=== PATIENT | female | born 1960 | race Caucasian/White ===

== ENCOUNTER 2016-12-02 08:47 | Emergency (ER) | payer BC, MEDICARE, MEDICAID ==
[2016-12-02] MEDS ORDERED: HYDROmorphone 1 MG/ML Syringe IVPUSH ONE ×2 (09:15→11:57)
[2016-12-02] MEDS ORDERED: Metoclopramide 10 MG/2 ML SDV IVPUSH ONE (09:15)
[2016-12-02] MEDS ORDERED: Sodium Chloride 0.9% 1,000 ML IV SCH (09:15)
--- NOTE | 2016-12-02 09:20 | EDM.PDOC ---
ED HPI GENERAL MEDICAL PROBLEM - General Chief Complaint: Flank Pain Stated Complaint: L SIDE ABDOMINAL PAIN Time Seen by Provider: 12/02/16 09:15 Source of Information: Reports: Patient History Limitations: Reports: No Limitations - History of Present Illness INITIAL COMMENTS - FREE TEXT/NARRATIVE: 55-year-old female presents the ED with acute onset of left flank pain radiating to the left upper hemiabdomen. This started about 2300 hours last night. Pain is excruciating graded as 10 out of 10. Constant pain with a colicky component. No history of renal lithiasis. Associated nausea without any vomiting. No feeling of need to void or defecate. Previous abdominal surgery includes total bowel hysterectomy and one ovary removed. The house her gallbladder and appendix. Has a history of generalized fibromyalgia. She did take a hydrocodone about 7:00 this morning with no relief. Onset: Sudden Onset Date: 12/01/16 Onset Time: 23:00 Duration: Hour(s):, Colic, Constant, Getting Worse Location: Reports: Abdomen, Back (Left upper abdomen left flank.) Quality: Reports: Ache, Pressure, Sharp, Stabbing Severity: Severe (10 out of 10.) Improves with: Reports: None Worsens with: Reports: None Context: Reports: Other (Was asleep when she woke with the pain.). Denies: Activity, Exercise, Lifting, Sick Contact, Trauma Associated Symptoms: Reports: Nausea/Vomiting. Denies: Chest Pain, Cough, cough w sputum, Diaphoresis, Fever/Chills, Headaches, Loss of Appetite, Malaise , Rash (Mild nausea without any vomiting), Seizure, Shortness of Breath, Syncope Treatments [employer] SECTION [employer]ICAL LEAD: Reports: Other (see below) (Hydrocodone 5-25 mg tablet at 7:00 this morning with no relief.) Left Lower Back Pain Score (Numeric/FACES): 8 - Related Data Allergies Allergy/AdvReac Type Severity Reaction Status Date / Time erythromycin lactobionate Allergy Blisters Verified 12/02/16 09:05 [From Erythrocin] levofloxacin [From Levaquin] Allergy Other Verified 12/02/16 09:05 meloxicam [From Mobic] Allergy Cannot Verified 12/02/16 09:05 Remember oxycodone HCl Allergy Difficulty Verified 12/02/16 09:05 [From OxyContin] Breathing Penicillins Allergy Blisters Verified 12/02/16 09:05 tetracycline Allergy Blisters Verified 12/02/16 09:05 tapentadol HCl [From Nucynta] AdvReac Numbness Verified 12/02/16 09:05 Home Meds: Home Meds Amitriptyline [Elavil] 150 mg PO BEDTIME 04/27/15 [History] Inhaler, Assist Devices [Aerochamber Plus Flow-Vu] 1 puff INH ASDIRECTED PRN [History] Hydrocodone/Acetaminophen [Hydrocodon-Acetaminophn 10-325] 1 tab PO ASDIRECTED PRN 11/12/15 [History] Fluconazole [Diflucan] 150 mg PO ONETIME #1 tablet 12/02/16 [Rx] Hydrocodone/Acetaminophen [Hydrocodon-Acetaminophen 5-325] 1 each PO Q4H #16 tablet 12/02/16 [Rx] Polyethylene Glycol 3350 [MiraLAX] 17 gm PO DAILY #10 packet 12/02/16 [Rx] Past Medical History Other HEENT History: wears glasses Cardiovascular History: Reports: Hypertension, Other (See Below) Other Cardiovascular History: pericarditis Respiratory History: Reports: None, Pneumonia, Recurrent Gastrointestinal History: Reports: None Other Gastrointestinal History: stomach pain Genitourinary History: Reports: None Other OB/BYN History: Menopause Musculoskeletal History: Reports: Fibromyalgia Neurological History: Reports: None Psychiatric History: Reports: Anxiety, Depression Endocrine/Metabolic History: Reports: None Hematologic History: Reports: None Immunologic History: Reports: None Oncologic (Cancer) History: Reports: Cervix Dermatologic History: Reports: None - Infectious Disease History Infectious Disease History: Reports: None - Past Surgical History Female Surgical History: Reports: Hysterectomy, Other (See Below) Musculoskeletal Surgical History: Reports: Other (See Below) Social & Family History - Family History Family Medical History: Noncontributory - Tobacco Use Smoking Status *Q: Former Smoker Years of Tobacco use: 20 Packs/Tins Daily: 0.5 Used Tobacco, but Quit: Yes Month Tobacco Last Used: october Second Hand Smoke Exposure: Yes - Alcohol Use Days Per Week of Alcohol Use: 0 Number of Drinks Per Day: 0 Total Drinks Per Week: 0 - Recreational Drug Use Recreational Drug Use: No - Living Situation & Occupation Living situation: Reports: Occupation: Unemployed ED ROS GENERAL - Review of Systems Review Of Systems: See Below Constitutional: Reports: Chills, Malaise, Weakness, Decreased Appetite. Denies : Fever HEENT: Reports: No Symptoms Respiratory: Reports: Shortness of Breath. Denies: Wheezing (Due to the nature the pain), Pleuritic Chest Pain, Cough, Sputum Cardiovascular: Reports: Blood Pressure Problem. Denies: Chest Pain, Claudication, Dyspnea on Exertion, Edema, Lightheadedness, Orthopnea, Palpitations Endocrine: Reports: No Symptoms GI/Abdominal: Reports: Abdominal Pain (Left upper hemiabdomen pain constant with a colicky component.), Constipation (Occasional problems with constipation) : Reports: Frequency, Other (Does not notice any color change in the urine.) Musculoskeletal: Reports: Muscle Pain (Chronic generalized myalgia i.e. fibromyalgia syndrome) Skin: Reports: No Symptoms Neurological: Reports: No Symptoms Psychiatric: Reports: Anxiety, Depression Hematologic/Lymphatic: Reports: No Symptoms Immunologic: Reports: No Symptoms ED EXAM, GI/ABD - Physical Exam Exam: See Below Exam Limited By: No Limitations General Appearance: Alert, WD/WN, Moderate Distress (In obvious pain.) Eyes: Bilateral: Normal Appearance (No jaundice the) Throat/Mouth: Normal Inspection, Normal Lips, Normal Teeth, Normal Oropharynx Head: Atraumatic, Normocephalic Neck: Normal Inspection, Supple, Non-Tender, Full Range of Motion. No: Carotid Bruit, Lymphadenopathy (L), Lymphadenopathy (R) Respiratory/Chest: Lungs Clear (Sandhya tachypnea at rest 20-24 per minute), Normal Breath Sounds, Chest Non-Tender, Respiratory Distress Cardiovascular: Normal Peripheral Pulses, Regular Rate, Rhythm, No Edema, No Gallop, No Rub GI/Abdominal: Soft, Non-Tender, No Organomegaly, Hypoactive Bowel Sounds, Tenderness. No: No Distention, No Abnormal Bruit, No Mass, Pelvis Stable, Guarding, Rebound (Left hemiabdomen), Rigidity Back Exam: Normal Inspection, Full Range of Motion. No: CVA Tenderness (L), CVA Tenderness (R) Extremities: Normal Inspection, Normal Range of Motion, No Pedal Edema, Normal Capillary Refill, Other Neurological: Alert, Oriented, CN II-XII Intact, Normal Cognition Psychiatric: Normal Affect, Normal Mood Skin Exam: Warm, Dry, Intact, Normal Color, No Rash Course - Vital Signs Last Recorded V/S: Last Vital Signs Temp 36.4 C 12/02/16 09:01 Pulse 68 12/02/16 09:01 Resp 20 12/02/16 09:01 BP Pulse Ox 96 12/02/16 09:01 - Orders/Labs/Meds Orders: Active Orders 24 hr Category Date Time Status EKG Documentation Completion [RC] STAT Care 12/02/16 09:22 Active Sodium Chloride 0.9% [Normal Saline] 1,000 ml Med 12/02/16 09:15 Active IV ASDIRECTED Medication Orders Sodium Chloride (Normal Saline) 1,000 mls @ 150 mls/hr IV ASDIRECTED RADHA Last Admin: 12/02/16 09:24 Dose: 150 mls/hr Labs: Laboratory Tests 12/02/16 12/02/16 12/02/16 Range/Units 10:51 10:51 11:00 WBC 6.89 (3.98-10.04) K/mm3 RBC 5.02 (3.98-5.22) M/mm3 Hgb 14.0 (11.2-15.7) gm/L Hct 42.0 (34.1-44.9) % MCV 83.7 (79.4-94.8) fl MCH 27.9 (25.6-32.2) pg MCHC 33.3 (32.2-35.5) g/dl RDW Std Deviation 40.9 (36.4-46.3) fL Plt Count 230 (182-369) K/mm3 MPV 10.6 (9.4-12.3) fl Neutrophils % (Manual) 58 (40-60) % Band Neutrophils % 0 (0-10) % Lymphocytes % (Manual) 35 (20-40) % Atypical Lymphs % 0 % Monocytes % (Manual) 6 (2-10) % Eosinophils % (Manual) 1 (0.7-5.8) % Basophils % (Manual) 0 L (0.1-1.2) Platelet Estimate Adequate RBC Morph Comment Normal Sodium 140 (136-145) mEq/L Potassium 3.8 (3.5-5.1) mEq/L Chloride 103 (98-107) mEq/L Carbon Dioxide 27 (21-32) mEq/L Anion Gap 13.8 (5-15) BUN 12 (7-18) mg/dL Creatinine 0.8 (0.55-1.02) mg/dL Est Cr Clr Drug Dosing 68.61 mL/min Estimated GFR (MDRD) > 60 (>60) mL/min BUN/Creatinine Ratio 15.0 (14-18) Glucose 105 (74-106) mg/dL Calcium 8.9 (8.5-10.1) mg/dL Total Bilirubin 0.5 (0.2-1.0) mg/dL AST 25 (15-37) U/L ALT 38 (14-59) U/L Alkaline Phosphatase 107 (46-116) U/L C-Reactive Protein 2.2 H* (<1.0) mg/dL Total Protein 7.6 (6.4-8.2) g/dl Albumin 3.8 (3.4-5.0) g/dl Globulin 3.8 gm/dL Albumin/Globulin Ratio 1.0 (1-2) Lipase 76 (73-393) U/L Urine Color Yellow (Yellow) Urine Appearance Clear (Clear) Urine pH 7.0 (5.0-8.0) Ur Specific [place] 1.025 (1.005-1.030) Urine Protein Trace H (Negative) Urine Glucose (UA) Negative (Negative) Urine Ketones Negative (Negative) Urine Occult Blood Negative (Negative) Urine Nitrite Negative (Negative) Urine Bilirubin Negative (Negative) Urine Urobilinogen 0.2 (0.2-1.0) Ur Leukocyte Esterase Negative (Negative) Urine RBC Not seen (0-5) /hpf Urine WBC Not seen (0-5) /hpf Ur Epithelial Cells 5-10 H (0-5) /hpf Urine Bacteria Rare (FEW) /hpf Urine Mucus Few (FEW) /hpf Urine Yeast Moderate H (NOT SEEN) Urine Yeast (Budding) Moderate H (NOT SEEN) Meds: Medications Generic Name Dose Route Start Last Admin Trade Name Freq PRN Reason Stop Dose Admin Sodium Chloride 1,000 mls @ 150 mls/hr 12/02/16 09:15 12/02/16 09:24 Normal Saline IV 150 mls/hr ASDIRECTED RADHA Administration Discontinued Medications Generic Name Dose Route Start Last Admin Trade Name Freq PRN Reason Stop Dose Admin Diatrizoate Meglum/Diatrizoate Sod 90 ml 12/02/16 12:10 12/02/16 13:55 Gastrografin 37% PO 12/02/16 12:11 90 ml ONETIME ONE Administration Hydromorphone HCl 1 mg 12/02/16 09:15 12/02/16 09:26 Dilaudid IVPUSH 12/02/16 09:16 1 mg ONETIME ONE Administration Hydromorphone HCl 0.5 mg 12/02/16 11:55 Dilaudid IVPUSH 12/02/16 11:56 ONETIME ONE Hydromorphone HCl 1 mg 12/02/16 11:57 12/02/16 12:09 Dilaudid IVPUSH 12/02/16 11:58 1 mg ONETIME ONE Administration Ceftriaxone Sodium 1 gm/ 100 mls @ 200 mls/hr 12/02/16 11:56 12/02/16 12:12 Sodium Chloride IV 12/02/16 12:25 200 mls/hr ONETIME ONE Administration Iopamidol 100 ml 12/02/16 12:10 12/02/16 13:55 Isovue-300 (61%) IVPUSH 12/02/16 12:11 100 ml ONETIME ONE Administration Metoclopramide HCl 10 mg 12/02/16 09:15 12/02/16 09:25 Reglan IVPUSH 12/02/16 09:16 10 mg ONETIME ONE Administration Morphine Sulfate 8 mg 12/02/16 13:17 12/02/16 13:30 Morphine IVPUSH 12/02/16 13:18 8 mg ONETIME ONE Administration Sodium Chloride 10 ml 12/02/16 12:10 12/02/16 13:55 Saline Flush FLUSH 12/02/16 12:11 10 ml ONETIME ONE Administration - Radiology Interpretation Free Text/Narrative:: 55-year-old female presents the ED with acute onset of severe left flank and left upper abdominal pain and 2300 hours last night. It awoke her from sleep it has persisted. It is constant pain with a colicky component. Noted changes in the color of the urine. No history of kidney stones. Associated nausea without vomiting. Benign abdominal examination no costovertebral angle tenderness afebrile. Suspect renal colic. Plan IV normal saline at 150 mils per hour. Dilaudid 1 mg IV with Reglan 10 mg IV for pain and nausea relief. Urinalysis and CT of the abdomen per renal protocol to be done. - Re-Assessments/Exams Free Text/Narrative Re-Assessment/Exam: 12/02/16 09:35 ECG shows sinus rhythm at 70 per minute. 12/02/16 11:37 labs reveal a normal white count is 6.89 with 50% neutrophils and no bands hemoglobin 14.0 hematocrit 42.0 platelets 230,000. Sodium 140 potassium 3.8 CRP is elevated mildly at 2.2. Urinalysis shows 5-10 epithelials but no signs of infection that showed numerous yeast buds. Lipase was 76. Therefore no specific etiology for abdominal pain was identified other than some moderate constipation on CT. 12/02/16 11:53 still having a good deal of left flank upper quadrant abdominal pain. The etiology is elusive. Reports she's had diarrhea for a week up until yesterday. This would suggest possible diverticulitis. Her white count however is normal she does have a mildly elevated CRP at 2.2. We'll give her a dose of Rocephin IV she is allergic to Levaquin and Cipro and erythromycin and penicillins. We'll give a further dose of Dilaudid 0.5 mg IV. 12/02/16 13:17 a she is still having significant left upper quadrant left flank pain. Rest of whether she may have infarcted her kidney. She has received little pain relief with the Dilaudid 1 mg given recently. Will try morphine 8 mg IV at this time. He is taking her oral contrast for CT exam. 12/02/16 14:42 CT of the abdomen and pelvis has been completed with IV contrast and oral contrast and again it is unchanged from CT done without contrast. There was no abnormalities appreciated to account for her left upper quadrant abdominal pain. Lab work was completely normal as well. Patient be discharged home on high record on 5 225 mg tablets one or 2 every 4-6 hours needed for pain relief x16 tablets. Advised MiraLax powder 17 g once daily while taking these pain medicines as she does have some is increased stool throughout the right hemicolon. Departure - Departure Time of Disposition: 15:00 Disposition: Home, Self-Care 01 Condition: fair Clinical Impression: Acute abdominal pain in left upper quadrant - Discharge Information Prescriptions: Fluconazole [Diflucan] 150 mg PO ONETIME #1 tablet Hydrocodone/Acetaminophen [Hydrocodon-Acetaminophen 5-325] 1 each PO Q4H #16 tablet Polyethylene Glycol 3350 [MiraLAX] 17 gm PO DAILY #10 packet Forms: ED Department Discharge Additional Instructions: Evaluation imaging today in regards to acute onset of left upper quadrant left flank pain last evening at 2300 hours. Etiology for this pain has not been clarified as CT scan of the abdomen x2 reveals no evidence of pathology within the left kidney pancreas spleen liver gallbladder or bowel. CT with contrast did not show any signs of diverticulitis or colitis. Lab tests also proved to be normal . Urinalysis is negative for infection although it does show several yeast buds within the urine likely from the vagina. Therefore you need a tablet of Diflucan 150 mg taken once to clear this infection. Expect your bowels to move a couple times a day after the oral contrast is making its way through the GI tract. Suggest using MiraLax powder 17 g one packet daily for the next 10 days to prevent constipation from pain medication. The right colon has a fair amount of stool within it on CT exam already. Discharged with hydrocodone tablets 5-325 mg x16 tablets one or 2 every 4-6 hours for pain relief as needed. Followup with personal care provider if not markedly improved in 36 hours time - My Orders Last 24 Hours: My Active Orders 12/02/16 09:15 Sodium Chloride 0.9% [Normal Saline] 1,000 ml IV ASDIRECTED 12/02/16 09:22 EKG Documentation Completion [RC] STAT - Assessment/Plan Last 24 Hours: My Active Orders 12/02/16 09:15 Sodium Chloride 0.9% [Normal Saline] 1,000 ml IV ASDIRECTED 12/02/16 09:22 EKG Documentation Completion [RC] STAT
--- NOTE | 2016-12-02 09:55 | CT ---
CT abdomen and pelvis Technique: Multiple axial sections were obtained from above the kidneys inferiorly through the pubic symphysis. Intravenous and oral contrast not utilized. Study has been performed as a ureteral stone protocol. Comparison: Previous CT abdomen and pelvis exam of 05/07/15 is available. Findings: Small portion of the visualized lung bases shows nothing acute. Visualized noncontrast appearance of the liver and spleen appears within normal limits. Adrenal glands show no nodule. Small amount of accessory splenic tissue noted off the anterior spleen which is incidental. Gallbladder shows no calcified gallstones. Pancreas is within normal limits. Aorta shows mild atherosclerotic change without aneurysmal dilatation. No retroperitoneal adenopathy or mesenteric abnormalities are seen. No pelvic mass or adenopathy is seen. Small fat-containing umbilical hernia is incidentally noted. Kidneys show no abnormal calcifications. No ureteral dilatation is seen. No abnormal calcifications are seen along the course of the ureters. No bladder calculi are seen. No inflammatory change or free fluid is identified. Appendix is not visualized with certainty. No bowel dilatation is seen. Bone window settings were reviewed which shows mild scoliosis within the spine as well as scattered degenerative change. Impression: 1. Incidental findings. No renal calculi, ureteral dilatation or ureteral stone is seen. 2. No significant change is seen from prior CT abdomen and pelvis study performed on 06/06/15. Diagnostic code #2
[2016-12-02] MEDS ORDERED: HYDROmorphone 0.5 MG/0.5 ML Syringe IVPUSH ONE (11:55)
[2016-12-02] MEDS ORDERED: cefTRIAXone 1 GM in Sodium Chloride 0.9% 100 ML IV ONE (11:56)
[2016-12-02] MEDS ORDERED: Sodium Chloride 0.9% 10 ML Syringe FLUSH ONE (12:10)
[2016-12-02] MEDS ORDERED: Iopamidol 612 MG/ML 100 ML Bottle IVPUSH ONE (12:10)
[2016-12-02] MEDS ORDERED: Diatrizoate Meglumine/Diatrizoate Sodium 37% 120 ML Bottle PO ONE (12:10)
[2016-12-02] MEDS ORDERED: Morphine 10 MG/ML Syringe IVPUSH ONE (13:17)
--- NOTE | 2016-12-02 14:39 | CT ---
CT abdomen and pelvis Technique: Multiple axial sections were obtained from above the dome of the diaphragm inferiorly through the pubic symphysis. Intravenous and oral contrast was utilized. Delayed images were also obtained through the bladder. Comparison: Previous noncontrast CT exam of 12/02/16 (9:38 AM). Findings: Visualized lung bases shows nothing acute. Liver has an unremarkable noncontrast CT appearance. Gallbladder shows no calcified gallstones. Spleen appears within normal limits. Small amount of accessory splenic tissue is seen anterior to the spleen. Adrenal glands show no nodule. Pancreas is within normal limits. Kidneys show symmetric contrast enhancement without hydronephrosis or mass. Aorta shows no aneurysmal dilatation. No retroperitoneal adenopathy or mesenteric abnormalities are seen. No pelvic mass or adenopathy is noted. Delayed images shows contrast within the distal ureters and within the bladder. Small fat-containing umbilical hernia is incidentally noted. Scattered degenerative change is seen within the spine. Appendix felt to be seen and is normal. Impression: 1. Incidental findings. Nothing acute is appreciated on CT study of the abdomen and pelvis performed with IV and oral contrast. Diagnostic code #2
== END 2016-12-02 16:00 | disposition home or self-care (01) ==
LOC: JD.ED 08:47
DX: R10.12 Left upper quadrant pain (principal); I10 Essential (primary) hypertension; Z88.1 Allergy status to other antibiotic agents; Z88.0 Allergy status to penicillin; Z87.01 Personal history of pneumonia (recurrent); Z90.710 Acquired absence of both cervix and uterus; Z87.891 Personal history of nicotine dependence
CPT/HCPCS: 36415; 74176; 74177; 80053; 81001; 83690; 85025; 86140; 93005; 96361; 96365; 96375; 96376; 99285; J0696; J1170; J2270; J2765; J7030; J7040; J7050; Q9963; Q9967; 99284

== ENCOUNTER 2016-12-10 08:55 | Day surgery (SDC) | payer BC, MEDICARE, MEDICAID ==
[~2016-12-10 08:55] MED LIST: Lactated Ringers 1,000 ML IV SCH; Lidocaine 1%/Sod Bicarbonate in NS 8.4% 1 ML Syringe PRN; Propofol 200 MG/20 ML SDV ONE; Sodium Chloride 0.9% 10 ML Syringe FLUSH PRN
--- NOTE | 2016-12-10 09:14 | PCM.PREANE ---
Preanesthetic Assessment - Anesthesia/Transfusion/Family Hx Anesthesia History: Prior Anesthesia Without Reaction Family History of Anesthesia Reaction: No Transfusion History: No Prior Transfusion(s) - Review of Systems General: No Symptoms ( ) Pulmonary: No Symptoms Cardiovascular: No Symptoms Gastrointestinal: Abdominal pain (5 days ago), Decreased appetite, Diarrhea (3 weeks and lost 15 pounds) Neurological: No Symptoms Other: Reports: Depression, Anxiety - Physical Assessment NPO Status Date: 12/09/16 NPO Status Time: 23:50 Pulse: 70 O2 Sat by Pulse Oximetry: 95 Respiratory Rate: 16 Blood Pressure: 151/84 Temperature: 97.5 F Height: 5 ft 4 in Weight: 104.78 kg ASA Class: 2 Mental Status: Alert & Oriented x3 Airway Class: Mallampati = 1 Dentition: Reports: Normal Dentition Thyro-Mental Finger Breadths: 3 Mouth Opening Finger Breadths: 3 ROM/Head Extension: Full Lungs: Clear to auscultation, Normal respiratory effort Cardiovascular: Regular Rate, Regular Rhythm - Allergies Allergies/Adverse Reactions: Allergies Allergy/AdvReac Type Severity Reaction Status Date / Time amoxicillin Allergy Nausea and Verified 12/09/16 16:08 Vomiting erythromycin lactobionate Allergy Blisters Verified 12/02/16 09:05 [From Erythrocin] eszopiclone [From Lunesta] Allergy Delusions Verified 12/09/16 16:08 levofloxacin [From Levaquin] Allergy Other Verified 12/02/16 09:05 linezolid [From Zyvox] Allergy Cannot Verified 12/09/16 16:08 Remember meloxicam [From Mobic] Allergy Cannot Verified 12/02/16 09:05 Remember milnacipran [From Savella] Allergy Cannot Verified 12/09/16 16:08 Remember oxycodone HCl Allergy Difficulty Verified 12/02/16 09:05 [From OxyContin] Breathing Penicillins Allergy Blisters Verified 12/02/16 09:05 pregabalin [From Lyrica] Allergy Cannot Verified 12/09/16 16:08 Remember tetracycline Allergy Blisters Verified 12/02/16 09:05 tapentadol HCl [From Nucynta] AdvReac Numbness Verified 12/02/16 09:05 - Blood Blood Available: No - Acknowledgements Anesthesia Type Planned: MAC Pt an Appropriate Candidate for the Planned Anesthesia: Yes Alternatives and Risks of Anesthesia Discussed w Pt/Guardian: Yes Pt/Guardian Understands and Agrees with Anesthesia Plan: Yes PreAnesthesia Questionnaire HEENT History: Reports: Sinusitis Other HEENT History: wears glasses, TMJ pain, R ear pain Cardiovascular History: Reports: Hypertension, Other (See Below) Other Cardiovascular History: pericarditis (chest pain) Respiratory History: Reports: None, Pneumonia, Recurrent, Other (See Below) Other Respiratory History: cough Gastrointestinal History: Reports: None, GERD Other Gastrointestinal History: stomach pain, nausea, epigastric pain, elevated liver enzymes, change in bowel habits, ventral hernia Genitourinary History: Reports: None, Other (See Below) Other Genitourinary History: frequency, UTIs, vaginosis Other OB/BYN History: Menopause Musculoskeletal History: Reports: Fibromyalgia, Other (See Below) Other Musculoskeletal History: R achilles tendon contracture, R ankle fracture, R knee pain and medical meniscus tear, R tibialis posterior tendinitis Neurological History: Reports: None, Headaches, Chronic, Vertigo Psychiatric History: Reports: Anxiety, Depression Endocrine/Metabolic History: Reports: None, Obesity/BMI 30+ Hematologic History: Reports: None, Other (See Below) Other Hematologic History: antiphospholipid syndrome Immunologic History: Reports: Other (See Below) Other Immunologic History: Lupus Oncologic (Cancer) History: Reports: Cervix Dermatologic History: Reports: None, Other (See Below) Other Dermatologic History: rosacea, rash, skin neoplasm - Infectious Disease History Infectious Disease History: Reports: None - Past Surgical History Head Surgeries/Procedures: Reports: None Cardiovascular Surgical History: Reports: None Female Surgical History: Reports: Hysterectomy, Other (See Below) Other Female Surgeries/Procedures: laparoscopy Musculoskeletal Surgical History: Reports: Other (See Below) Other Musculoskeletal Surgeries/Procedures:: right knee surgery and left ulnar nerve surgery, ORIF R ankle - SUBSTANCE USE Smoking Status *Q: Former Smoker Tobacco Use Within Last Twelve Months: Cigarettes Second Hand Smoke Exposure: Yes Days Per Week of Alcohol Use: 0 Number of Drinks Per Day: 0 Total Drinks Per Week: 0 Recreational Drug Use History: No - HOME MEDS Home Medications: Home Meds Hydrocodone/Acetaminophen [Hydrocodon-Acetaminophn 10-325] 1 - 2 tab PO Q6H PRN 12/09/16 [History] Omeprazole [Omeprazole] 20 mg PO DAILY 12/09/16 [History] Temazepam [Temazepam] 15 mg PO BEDTIME 12/09/16 [History] - CURRENT (IN HOUSE) MEDS Current Meds: Current Medications Lactated Ringer's (Ringers, Lactated) 1,000 mls @ 125 mls/hr IV ASDIRECTED RADHA Stop: 12/10/16 23:00 Lidocaine/Sodium Bicarbonate (Buffered Lidocaine 1% In Ns 8.4%) 0.25 ml .XX ONETIME PRN PRN Reason: Prior to IV Start Stop: 12/10/16 18:00 Sodium Chloride (Saline Flush) 10 ml FLUSH ASDIRECTED PRN PRN Reason: Keep Vein Open Stop: 12/10/16 18:00 Discontinued Medications Propofol (Diprivan 20 Ml) Confirm Administered Dose 200 mg .ROUTE .STK-MED ONE Stop: 12/10/16 07:02
--- NOTE | 2016-12-10 10:27 | PCM.OPNOTE ---
- General Post-Op/Procedure Note Operative Procedure(s): Esophagogastroduodenoscopy with distal esophageal biopsies Findings: mild esophagitis Pre Op Diagnosis: chronic GERD Post-Op Diagnosis: mild distal reflux related esophagitis Anesthesia Technique: MAC, Moderate sedation Primary Surgeon: Ji Mares Pathology: GE junction biopsies EBL in mLs: 0 Complications: None Condition: Good Free Text/Narrative:: After adequate IV sedation and analgesia was obtained the patient was placed on her left side. Through a bite block a lubricated upper endoscope was inserted into the esophagus and advanced under direct vision to the stomach. Additional air was given here, followed by entry into the duodenum. The second, and first portion endoscopically normal. The antrum was also unremarkable as well. In the retroflexed view the fundus and cardia, regions were pbserved and were unremarkable. There was no hiatal hernia. The rugal folds were grossly normal as was the gastric motility. The GE junction had mild erythematous changes without ulcers or strictures. Two iopsies were taken for the pathology. The body of the esophagus was unremarkable. Air was removed, as I finished the procedure, which she tolerated well.
--- NOTE | 2016-12-10 10:31 | PCM48HPAN ---
Post Anesthesia Note - EVALUATION WITHIN 48HRS OF ANESTHETIC Vital Signs in Normal Range: Yes Patient Participated in Evaluation: Yes Respiratory Function Stable: Yes Airway Patent: Yes Cardiovascular Function Stable: Yes Hydration Status Stable: Yes Pain Control Satisfactory: Yes Nausea and Vomiting Control Satisfactory: Yes Mental Status Recovered: Yes
[2016-12-10 11:33] VITALS: BP 120/61
== END 2016-12-10 11:07 | disposition home or self-care (01) ==
LOC: JD.SDS 08:55
PROVIDERS: ATTEND Surgery
DX: K22.10 Ulcer of esophagus without bleeding (principal); G89.29 Other chronic pain; M26.629 Arthralgia of temporomandibular joint, unspecified side; K21.9 Gastro-esophageal reflux disease without esophagitis; M32.9 Systemic lupus erythematosus, unspecified; F32.9 Major depressive disorder, single episode, unspecified; G43.909 Migraine, unspecified, not intractable, without status migrainosus; E66.01 Morbid (severe) obesity due to excess calories; Z79.899 Other long term (current) drug therapy; Z88.0 Allergy status to penicillin; Z88.1 Allergy status to other antibiotic agents; Z88.8 Allergy status to other drugs, medicaments and biological substances; F17.210 Nicotine dependence, cigarettes, uncomplicated; Z90.710 Acquired absence of both cervix and uterus; Z98.51 Tubal ligation status; Z72.0 Tobacco use
CPT/HCPCS: 43239; 88305; J7120; J2704

== ENCOUNTER 2017-01-18 01:21 | Emergency (ER) | payer BC, MEDICARE, MEDICAID ==
[2017-01-18] MEDS ORDERED: Lactated Ringers 1,000 ML IV SCH (01:45)
--- NOTE | 2017-01-18 01:46 | EDM.PDOC ---
ED HPI GENERAL MEDICAL PROBLEM - General Chief Complaint: Chest Pain Stated Complaint: CHEST PAIN Time Seen by Provider: 01/18/17 01:41 Source of Information: Reports: Patient History Limitations: Reports: No Limitations - History of Present Illness INITIAL COMMENTS - FREE TEXT/NARRATIVE: 56-year-old female attends the ED with complaints of intermittent pinching chest pains off and on for the last 2 weeks but worse today. Pain like a muscle cramp is evident in the left precordial chest and radiates into the left upper extremity down towards her hand. Having increased fibromyalgia syndrome trigger point pain and all of her joints are hurting. She feels nauseated and she said 3 -4 loose stools which are semi-formed today without blood. Lightheaded dizzy. Does seem to be a bit anxious. She does report stopping one of her antidepressants and we believe this was Cymbalta within the last week or 10 days with no weaning from this medication. She has been prescribed a new one but she has not started it yet. This is for fibromyalgia syndrome. ECG done by triage nurse shows sinus rhythm at 90/m with no abnormalities noted. Onset: Gradual (Worsening symptoms over the last 2 weeks.) Onset Date: 01/03/17 Duration: Day(s):, Getting Worse Location: Reports: Chest, Other (Loose stools) Quality: Reports: Other (Increased joint pain and soft tissue pain due to fibromyalgia syndrome) Severity: Moderate Improves with: Reports: None Worsens with: Reports: None Context: Denies: Activity, Exercise, Lifting, Sick Contact, Trauma, Other Associated Symptoms: Reports: Chest Pain, Headaches, Loss of Appetite, Malaise, Nausea/Vomiting, Shortness of Breath, Weakness (Nausea without vomiting generalized weakness). 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) (Hydrocodone) Left Chest Pain Score (Numeric/FACES): 6 - Related Data Allergies Allergy/AdvReac Type Severity Reaction Status Date / Time amoxicillin Allergy Nausea and Verified 01/18/17 01:31 Vomiting erythromycin lactobionate Allergy Blisters Verified 01/18/17 01:31 [From Erythrocin] eszopiclone [From Lunesta] Allergy Delusions Verified 01/18/17 01:31 levofloxacin [From Levaquin] Allergy Other Verified 01/18/17 01:31 linezolid [From Zyvox] Allergy Cannot Verified 01/18/17 01:31 Remember meloxicam [From Mobic] Allergy Cannot Verified 01/18/17 01:31 Remember milnacipran [From Savella] Allergy Cannot Verified 01/18/17 01:31 Remember oxycodone HCl Allergy Difficulty Verified 01/18/17 01:31 [From OxyContin] Breathing Penicillins Allergy Blisters Verified 01/18/17 01:31 pregabalin [From Lyrica] Allergy Cannot Verified 01/18/17 01:31 Remember tetracycline Allergy Blisters Verified 12/10/16 09:36 tapentadol HCl [From Nucynta] AdvReac Numbness Verified 12/10/16 09:36 Home Meds: Home Meds Hydrocodone/Acetaminophen [Hydrocodon-Acetaminophn 10-325] 1 - 2 tab PO Q6H PRN 12/09/16 [History] Temazepam 15 mg PO BEDTIME 12/09/16 [History] Aspirin 81 mg PO DAILY 01/18/17 [History] Prednisone [IMW: predniSONE] 20 mg PO ASDIRECTED #40 tab 01/18/17 [Rx] Past Medical History HEENT History: Reports: Sinusitis Other HEENT History: wears glasses, TMJ pain, R ear pain Cardiovascular History: Reports: Hypertension, Other (See Below) Other Cardiovascular History: pericarditis (chest pain) Respiratory History: Reports: None, Pneumonia, Recurrent, Other (See Below) Other Respiratory History: cough Gastrointestinal History: Reports: None, GERD Other Gastrointestinal History: stomach pain, nausea, epigastric pain, elevated liver enzymes, change in bowel habits, ventral hernia Genitourinary History: Reports: None, Other (See Below) Other Genitourinary History: frequency, UTIs, vaginosis Other OB/BYN History: Menopause Musculoskeletal History: Reports: Fibromyalgia, Other (See Below) Other Musculoskeletal History: R achilles tendon contracture, R ankle fracture, R knee pain and medical meniscus tear, R tibialis posterior tendinitis Neurological History: Reports: None, Headaches, Chronic, Vertigo Psychiatric History: Reports: Anxiety, Depression Endocrine/Metabolic History: Reports: None, Obesity/BMI 30+ Hematologic History: Reports: None, Other (See Below) Other Hematologic History: antiphospholipid syndrome Immunologic History: Reports: Other (See Below) Other Immunologic History: Lupus Oncologic (Cancer) History: Reports: Cervix Dermatologic History: Reports: None, Other (See Below) Other Dermatologic History: rosacea, rash, skin neoplasm - Infectious Disease History Infectious Disease History: Reports: None - Past Surgical History Head Surgeries/Procedures: Reports: None Cardiovascular Surgical History: Reports: None Female Surgical History: Reports: Hysterectomy, Other (See Below) Other Female Surgeries/Procedures: laparoscopy Musculoskeletal Surgical History: Reports: Other (See Below) Other Musculoskeletal Surgeries/Procedures:: right knee surgery and left ulnar nerve surgery, ORIF R ankle Social & Family History - Family History Family Medical History: Noncontributory - Tobacco Use Smoking Status *Q: Former Smoker Years of Tobacco use: 20 Packs/Tins Daily: 0.5 Used Tobacco, but Quit: Yes Month Tobacco Last Used: october Second Hand Smoke Exposure: Yes - Caffeine Use Caffeine Use: Reports: Coffee - Alcohol Use Days Per Week of Alcohol Use: 0 Number of Drinks Per Day: 0 Total Drinks Per Week: 0 - Recreational Drug Use Recreational Drug Use: No - Living Situation & Occupation Living situation: Reports: Occupation: Unemployed ED ROS GENERAL - Review of Systems Review Of Systems: See Below Constitutional: Reports: Chills, Malaise, Weakness, Fatigue, Decreased Appetite. Denies: Fever HEENT: Reports: No Symptoms Respiratory: Reports: Shortness of Breath. Denies: Wheezing, Pleuritic Chest Pain, Cough, Sputum, Hemoptysis Cardiovascular: Reports: Chest Pain, Blood Pressure Problem, Dyspnea on Exertion , Lightheadedness, Palpitations. Denies: Claudication, Orthopnea (Mild hypertension) Endocrine: Reports: Fatigue GI/Abdominal: Reports: Diarrhea (Loose semi-formed stools 4 today. No blood), Nausea. Denies: Hematochezia, Vomiting : Reports: Frequency (Has been drinking a lot of water today.) Musculoskeletal: Reports: Joint Pain, Joint Swelling, Muscle Pain, Other Skin: Reports: No Symptoms (Generalized joint and soft tissue pain due to fibromyalgia syndrome.) Neurological: Reports: Dizziness, Headache, Numbness, Tingling, Difficulty Walking, Weakness. Denies: Trouble Speaking, Change in Speech, Gait Disturbance Psychiatric: Reports: Anxiety, Depression Hematologic/Lymphatic: Reports: No Symptoms Immunologic: Reports: No Symptoms ED EXAM, GENERAL - Physical Exam Exam: See Below Exam Limited By: No Limitations General Appearance: Alert, WD/WN, No Apparent Distress, Other (Vital signs are stable with pulse ox of 98 BP 148/78 pulse is 90 and sinus respiratory 16.) Eye Exam: Bilateral Eye: Normal Inspection (No jaundice.) Throat/Mouth: Normal Inspection, Normal Lips, Normal Teeth, Normal Gums, Normal Oropharynx Head: Atraumatic, Normocephalic Neck: Normal Inspection, Supple, Non-Tender, Full Range of Motion Respiratory/Chest: No Respiratory Distress, Lungs Clear, Normal Breath Sounds, No Accessory Muscle Use Cardiovascular: Normal Peripheral Pulses, Regular Rate, Rhythm, No Edema, No Gallop, No Murmur Peripheral Pulses: 2+: Posterior Tibial (L), Posterior Tibial (R), Dorsalis Pedis (L), Dorsalis Pedis (R) GI/Abdominal: Normal Bowel Sounds, Soft, Non-Tender, No Organomegaly, No Distention, No Abnormal Bruit, No Mass, Pelvis Stable Back Exam: Decreased Range of Motion, Vertebral Tenderness (Low back pain). No : CVA Tenderness (L), CVA Tenderness (R) Extremities: Joint Swelling (Has swelling of her second and third MCP P joints bilaterally suggestive of rheumatoid arthritis. Hands and feet), Other Neurological: Alert, Oriented, CN II-XII Intact, Normal Cognition Psychiatric: Normal Affect, Normal Mood Skin Exam: Warm, Dry, Intact, Normal Color, No Rash EKG INTERPRETATION EKG Date: 01/18/17 Time: 01:25 Rhythm: NSR Rate (Beats/Min): 90 [place]: Normal P-Wave: Present QRS: Normal ST-T: Normal QT: Normal EKG Interpretation Comments: Normal ECG Course - Vital Signs Last Recorded V/S: Last Vital Signs Temp 36.2 C 01/18/17 01:27 Pulse 80 01/18/17 03:30 Resp 15 01/18/17 03:30 BP 136/79 01/18/17 03:30 Pulse Ox 98 01/18/17 03:30 - Orders/Labs/Meds Orders: Active Orders 24 hr Category Date Time Status EKG Documentation Completion [RC] STAT Care 01/18/17 01:42 Active Chest 1V Frontal [CR] Stat Exams 01/18/17 01:42 Ordered Labs: Laboratory Tests 01/18/17 01/18/17 01/18/17 Range/Units 01:37 01:37 01:37 WBC 8.71 (3.98-10.04) K/mm3 RBC 4.95 (3.98-5.22) M/mm3 Hgb 13.9 (11.2-15.7) gm/L Hct 41.7 (34.1-44.9) % MCV 84.2 (79.4-94.8) fl MCH 28.1 (25.6-32.2) pg MCHC 33.3 (32.2-35.5) g/dl RDW Std Deviation 41.5 (36.4-46.3) fL Plt Count 237 (182-369) K/mm3 MPV 11.3 (9.4-12.3) fl Neutrophils % (Manual) 51 (40-60) % Band Neutrophils % 0 (0-10) % Lymphocytes % (Manual) 40 (20-40) % Atypical Lymphs % 1 % Monocytes % (Manual) 5 (2-10) % Eosinophils % (Manual) 3 (0.7-5.8) % Basophils % (Manual) 0 L (0.1-1.2) Platelet Estimate Adequate Plt Morphology Comment Normal Poikilocytosis 1+ slight RBC Morph Comment Abnormal ESR (0-20) mm/hr Sodium 138 (136-145) mEq/L Potassium 3.8 (3.5-5.1) mEq/L Chloride 103 (98-107) mEq/L Carbon Dioxide 26 (21-32) mEq/L Anion Gap 12.8 (5-15) BUN 17 (7-18) mg/dL Creatinine 0.9 (0.55-1.02) mg/dL Est Cr Clr Drug Dosing 60.27 mL/min Estimated GFR (MDRD) > 60 (>60) mL/min BUN/Creatinine Ratio 18.9 H (14-18) Glucose 104 (74-106) mg/dL Calcium 9.1 (8.5-10.1) mg/dL Total Bilirubin 0.2 (0.2-1.0) mg/dL AST 18 (15-37) U/L ALT 39 (14-59) U/L Alkaline Phosphatase 107 (46-116) U/L Creatine Kinase 158 (26-192) U/L Troponin I (0.00-0.056) ng/mL C-Reactive Protein 2.7 H* (<1.0) mg/dL Total Protein 7.7 (6.4-8.2) g/dl Albumin 3.9 (3.4-5.0) g/dl Globulin 3.8 gm/dL Albumin/Globulin Ratio 1.0 (1-2) TSH 3rd Generation 1.533 (0.358-3.74) uIU/mL Rheumatoid Factor Scrn Positive H (NEGATIVE) 01/18/17 01/18/17 Range/Units 01:37 01:37 WBC (3.98-10.04) K/mm3 RBC (3.98-5.22) M/mm3 Hgb (11.2-15.7) gm/L Hct (34.1-44.9) % MCV (79.4-94.8) fl MCH (25.6-32.2) pg MCHC (32.2-35.5) g/dl RDW Std Deviation (36.4-46.3) fL Plt Count (182-369) K/mm3 MPV (9.4-12.3) fl Neutrophils % (Manual) (40-60) % Band Neutrophils % (0-10) % Lymphocytes % (Manual) (20-40) % Atypical Lymphs % % Monocytes % (Manual) (2-10) % Eosinophils % (Manual) (0.7-5.8) % Basophils % (Manual) (0.1-1.2) Platelet Estimate Plt Morphology Comment Poikilocytosis RBC Morph Comment ESR 21 H (0-20) mm/hr Sodium (136-145) mEq/L Potassium (3.5-5.1) mEq/L Chloride (98-107) mEq/L Carbon Dioxide (21-32) mEq/L Anion Gap (5-15) BUN (7-18) mg/dL Creatinine (0.55-1.02) mg/dL Est Cr Clr Drug Dosing mL/min Estimated GFR (MDRD) (>60) mL/min BUN/Creatinine Ratio (14-18) Glucose (74-106) mg/dL Calcium (8.5-10.1) mg/dL Total Bilirubin (0.2-1.0) mg/dL AST (15-37) U/L ALT (14-59) U/L Alkaline Phosphatase (46-116) U/L Creatine Kinase (26-192) U/L Troponin I < 0.017 (0.00-0.056) ng/mL C-Reactive Protein (<1.0) mg/dL Total Protein (6.4-8.2) g/dl Albumin (3.4-5.0) g/dl Globulin gm/dL Albumin/Globulin Ratio (1-2) TSH 3rd Generation (0.358-3.74) uIU/mL Rheumatoid Factor Scrn (NEGATIVE) Meds: Medications Discontinued Medications Generic Name Dose Route Start Last Admin Trade Name Freq PRN Reason Stop Dose Admin Lactated Ringer's 1,000 mls @ 500 mls/hr 01/18/17 01:45 01/18/17 01:55 Ringers, Lactated IV 500 mls/hr .BOLUS RADHA Administration Methylprednisolone Sodium Succinate 125 mg 01/18/17 02:45 01/18/17 02:56 Solu-Medrol IVPUSH 01/18/17 02:46 125 mg ONETIME ONE Administration - Radiology Interpretation Free Text/Narrative:: 56 year old female presents to the ED with a multitude of complaints with increased joint pain soft tissue pain sharp stabbing intermittent chest pains for the better part of 2 weeks but worse today. Headache nausea malaise and some loose pasty stools today. She reports she has been drinking a lot of water today. Possibility of hyponatremia therefore exists. I suspect her symptoms are secondary to recently stopping Cymbalta without a weaning program and not starting new antidepressant medication. She has chronic fibromyalgia syndrome. Routine labs ordered including a rheumatoid factor due to swelling of her second and third MCP joints bilaterally. Sedimentation rate and TSH also ordered. - Re-Assessments/Exams Free Text/Narrative Re-Assessment/Exam: 01/18/17 02:22 portable chest x-ray gives the impression of mild cardiomegaly with mild vascular congestion. It may be magnified due to portable technique. 01/18/17 02:48 labs are back and he really reveal essentially a normal white count at 8.71 hemoglobin 13.9 hematocrit of 41.7 platelets 237,000. Sodium 138 potassium 3.8 chloride 103 bicarbonate 26. Troponin was less than 0.017. CRP is mildly elevated at 2.7 rheumatoid factor is strongly positive. It's unclear whether this is a new diagnosis or was positive in the past. By her history of not taking a good hour and a half every morning just to get up and moving gets stiffness and soreness Darvocet of her joints this is strongly suggestive of rheumatoid arthritis. She's been told by her note teller that she may well have lupus. This most means she does have some positivity to your antinuclear antibodies. At any rate I'm going to give her Cipro Medrol 125 mg IV at this time as she has significant pain in joint tenderness. I'm going to place her on meloxicam 15 mg once daily every morning and a short course of prednisone 20 mg twice daily for 5 days then 20 mg once daily in the morning for 5 days and then 10 mg once daily every morning until she follows up with rheumatology. She will have to also return to use of Prilosec or omeprazole 20 mg once daily for GI protection. Reassured that there is no evidence of heart related illness. I feel that most of her pain is chest wall in origin radiating into the left arm. She may also be having some withdrawal from Cymbalta since the medication was stopped abruptly without weaning process. Departure - Departure Time of Disposition: 02:53 Disposition: Home, Self-Care 01 Condition: Fair Clinical Impression: Non-cardiac chest pain Rheumatoid arthritis Qualifiers: Rheumatoid arthritis location: wrist Rheumatoid factor presence: with rheumatoid factor Laterality: bilateral Qualified Code(s): M05.731 - Rheumatoid arthritis with rheumatoid factor of right wrist without organ or systems involvement - Discharge Information Prescriptions: Prednisone [IMW: predniSONE] 20 mg PO ASDIRECTED #40 tab Instructions: Arthritis, [id number], Rheumatoid Factor Test Referrals: Aysha Dsouza [employer]PER[employer] [Primary Care Provider] - Forms: ED Department Discharge Additional Instructions: Evaluation in the emergency room this morning due to persistent chest pains off and on for the last 2 weeks but worse tonight. Left precordial chest pressure discomfort like a cramp with referred pain into the left upper extremity and down the arm. ECG was normal chest x-ray is normal and lab work was negative for any heart related illness. In fact labs were essentially normal other than elevated CRP which is a nonspecific indicator of inflammation. Yours was 2.7. Rheumatoid factor is strongly positive suggesting developing rheumatoid arthritis over the last several months. This would explain her limited mobility particularly in the mornings and chronic joint pain. Suggest treatment with steroids to see if it alleviates her joint pain over the next week. Even initial dose of steroid intravenously in the ED Solu-Medrol 125 mg this will start to work in about 4-6 hours. Suggest using prednisone 20 mg with breakfast and supper for 5 days then 1 tablet in the morning only for another 5 days and then reducing to 10 mg tablet once daily until follow-up with note teller. Note this medication cannot be stopped and it must be weaned once she take it for longer than 14 days. You should also return to omeprazole 20 mg once daily for GI protection from the above medications. Suggest making a follow-up appointment with note teller as soon as possible. - My Orders Last 24 Hours: My Active Orders 01/18/17 01:42 EKG Documentation Completion [RC] STAT Chest 1V Frontal [CR] Stat - Assessment/Plan Last 24 Hours: My Active Orders 01/18/17 01:42 EKG Documentation Completion [RC] STAT Chest 1V Frontal [CR] Stat
[2017-01-18] MEDS ORDERED: methylPREDNISolone Sodium Succinate 125 MG/2 ML SDV IVPUSH ONE (02:45)
[2017-01-18 04:03] VITALS: BP 136/79
--- NOTE | 2017-01-18 15:20 | CR ---
Chest: Portable view of the chest was obtained. Comparison: Previous chest x-ray of 02/25/16. Heart size and mediastinum are normal. Lungs are clear. Bony structures are grossly intact. Impression: 1. Nothing acute is identified on portable chest x-ray. Diagnostic code #1
== END 2017-01-18 03:30 | disposition home or self-care (01) ==
LOC: JD.ED 01:21
DX: R07.89 Other chest pain (principal); I10 Essential (primary) hypertension; K21.9 Gastro-esophageal reflux disease without esophagitis; M05.731 Rheumatoid arthritis with rheumatoid factor of right wrist without organ or systems involvement; F41.9 Anxiety disorder, unspecified; F32.9 Major depressive disorder, single episode, unspecified; Z88.1 Allergy status to other antibiotic agents; Z88.6 Allergy status to analgesic agent; Z88.0 Allergy status to penicillin; Z79.82 Long term (current) use of aspirin; Z87.440 Personal history of urinary (tract) infections; Z87.891 Personal history of nicotine dependence
CPT/HCPCS: 36415; 71010; 80053; 82550; 84443; 84484; 85025; 85652; 86140; 86430; 93005; 96361; 96374; 99285; J2930; J7120; 99284

== ENCOUNTER 2017-02-17 08:46 | Day surgery (SDC) | payer BC, MEDICARE, MEDICAID ==
--- NOTE | 2017-01-26 19:01 | HP ---
DATE OF ADMISSION: 02/03/2017 HISTORY OF PRESENT ILLNESS: This is one of multiple outpatient admissions for surgery for this female, who is being admitted from the orthopedic clinic for removal of a Ramsey nicole and hardware of right ankle. The patient has suffered an injury and fall with fracture to the right ankle dating back to November of 2015. The patient presents to the orthopedic clinic today with significant pain involving the distal aspect of her right fibula with positive pain to palpation. X-ray show a Ramsey nicole in place, fracture is well healed. The patient was being discussed for the possibility of pin removal. After evaluation through the clinic and with the point tenderness over the pin area which is prominent, I do feel that it is necessary for the patient undergo a removal of the mechanical hardware of the right ankle. Procedure has been outlined to her. She understands the procedure and has consented to it. ALLERGIES: Multiple allergies to Lunesta, Nucynta, amoxicillin, Levaquin, Lyrica, Mobic, oxycodone, penicillin, Savella, tetracycline, and Zyvox. PAST MEDICAL HISTORY: The patient has a history of lupus along with rheumatoid arthritis and high blood pressure problems. CURRENT MEDICATIONS: Include duloxetine, hydrocodone, and temazepam. PAST SURGICAL HISTORY: Positive. The patient has undergone previous surgeries involving her knee, also her ankle. She notes no specific problems resulting with anesthesia. She has also had hysterectomy, carpal tunnel surgery, and tubal ligation. REVIEW OF SYSTEMS: The patient notes no bleeding history. She did state she had a blood clot history previously. SOCIAL HISTORY: She is a smoker, 1-pack per month. The patient is a nondrinker. PHYSICAL EXAMINATION: GENERAL: Today, reveals a well-developed, well-nourished female, in moderate to severe distress. HEAD, EYES, EARS, NOSE, AND THROAT: Normocephalic. NECK: Supple. CHEST: Clear. COR: Regular rate. ABDOMEN: Soft. : Intact. EXTREMITIES: Examination of the right ankle reveals severe pain on direct pressure palpation over the distal fibula right side, surgical incisions are well healed. DIAGNOSTIC DATA: X-rays revealed a fracture of the right ankle that was fixed with a Ramsey nicole, which the fracture line is closed with no specific changes noted for acute injury. ASSESSMENT: Painful mechanical hardware, right ankle. PLAN: The patient is to undergo surgical excision of the hardware. Procedure was outlined to her. She understands and has consented to it. BENJAMIN /[id number] VALERIA
[~2017-02-17 08:46] MED LIST changes: -Propofol 200 MG/20 ML SDV ONE
--- NOTE | 2017-02-17 09:37 | PCM.PREANE ---
Preanesthetic Assessment - Procedure Proposed Procedure: Right ankle hardware removal - Anesthesia/Transfusion/Family Hx Anesthesia History: Prior Anesthesia Without Reaction Family History of Anesthesia Reaction: No Transfusion History: No Prior Transfusion(s) Additional History: RA, Lupus, antiphospholipid syndrome, - Review of Systems General: No Symptoms Pulmonary: No Symptoms Cardiovascular: Other (pericarditis- 2 months ago) Gastrointestinal: Other (GERD) Neurological: Headache (frequent ), Other Other: Reports: Easy Bruising (on asa- last taken 02-09-17), Depression, Anxiety - Physical Assessment NPO Status Date: 02/16/17 NPO Status Time: 22:00 O2 Sat by Pulse Oximetry: 94 Respiratory Rate: 17 Vital Signs: Last Vital Signs Temp 37.2 C 02/17/17 09:05 Pulse 86 02/17/17 09:05 Resp 17 02/17/17 09:05 BP 144/73 H 02/17/17 09:05 Pulse Ox 94 L 02/17/17 09:05 Height: 1.63 m Weight: 100.244 kg ASA Class: 2 Mental Status: Alert & Oriented x3 Airway Class: Mallampati = 1 Dentition: Reports: Missing Tooth/Teeth (multiple molars missing ) Thyro-Mental Finger Breadths: 3 Mouth Opening Finger Breadths: 3 ROM/Head Extension: Limited/Partial (due to RA) Lungs: Clear to Auscultation, Normal Respiratory Effort Cardiovascular: Regular Rate, Regular Rhythm - Allergies Allergies/Adverse Reactions: Allergies Allergy/AdvReac Type Severity Reaction Status Date / Time erythromycin lactobionate Allergy Blisters Verified 02/17/17 09:29 [From Erythrocin] levofloxacin [From Levaquin] Allergy Other Verified 02/17/17 09:29 linezolid [From Zyvox] Allergy Cannot Verified 02/17/17 09:29 Remember meloxicam [From Mobic] Allergy Cannot Verified 02/17/17 09:29 Remember milnacipran [From Savella] Allergy Cannot Verified 02/17/17 09:29 Remember oxycodone HCl Allergy Difficulty Verified 02/17/17 09:29 [From OxyContin] Breathing pregabalin [From Lyrica] Allergy Cannot Verified 02/17/17 09:29 Remember tetracycline Allergy Blisters Verified 02/17/17 09:29 amoxicillin AdvReac Nausea and Verified 02/17/17 09:29 Vomiting eszopiclone [From Lunesta] AdvReac Delusions Verified 02/17/17 09:29 Penicillins AdvReac Blisters Verified 02/17/17 09:29 tapentadol HCl [From Nucynta] AdvReac Numbness Verified 02/17/17 09:29 - Blood Blood Available: No Product(s) Available: None - Anesthesia Plan Pre-Op Medication Ordered: None - Acknowledgements Anesthesia Type Planned: General Anesthesia (LMA- patient states she has not had GERD in years) Pt an Appropriate Candidate for the Planned Anesthesia: Yes Alternatives and Risks of Anesthesia Discussed w Pt/Guardian: Yes Pt/Guardian Understands and Agrees with Anesthesia Plan: Yes PreAnesthesia Questionnaire HEENT History: Reports: Sinusitis Other HEENT History: wears glasses, TMJ pain, R ear pain, wears glasses Cardiovascular History: Reports: Hypertension, Other (See Below) Other Cardiovascular History: pericarditis (chest pain), lower extremity edema Respiratory History: Reports: None, Bronchitis, Recurrent, Pneumonia, Recurrent , Other (See Below) Other Respiratory History: cough Gastrointestinal History: Reports: None, GERD Other Gastrointestinal History: stomach pain, nausea, epigastric pain, elevated liver enzymes, change in bowel habits, ventral hernia Genitourinary History: Reports: None, Other (See Below) Other Genitourinary History: frequency, UTIs, vaginosis Other OB/BYN History: Menopause Musculoskeletal History: Reports: Fibromyalgia, Other (See Below) Other Musculoskeletal History: R achilles tendon contracture, R ankle fracture, R knee pain and medical meniscus tear, R tibialis posterior tendinitis Neurological History: Reports: Headaches, Chronic, Migraines, Vertigo Psychiatric History: Reports: Anxiety, Depression Endocrine/Metabolic History: Reports: None, Obesity/BMI 30+ Hematologic History: Reports: None, Other (See Below) Other Hematologic History: antiphospholipid syndrome Immunologic History: Reports: SLE, Other (See Below) Other Immunologic History: Lupus Oncologic (Cancer) History: Reports: Cervix Dermatologic History: Reports: None, Other (See Below) Other Dermatologic History: rosacea, rash, skin neoplasm, herpes zoster - Infectious Disease History Infectious Disease History: Reports: None - Past Surgical History Head Surgeries/Procedures: Reports: None Cardiovascular Surgical History: Reports: None GI Surgical History: Reports: Colonoscopy Female Surgical History: Reports: Hysterectomy, Tubal Ligation, Other (See Below) Other Female Surgeries/Procedures: laparoscopy Musculoskeletal Surgical History: Reports: Carpal Tunnel, Other (See Below) Other Musculoskeletal Surgeries/Procedures:: right knee surgery and left ulnar nerve surgery, ORIF R ankle - SUBSTANCE USE Smoking Status *Q: Current Every Day Smoker (17 years 0.5ppd) Tobacco Use Within Last Twelve Months: Cigarettes Second Hand Smoke Exposure: Yes Days Per Week of Alcohol Use: 0 Number of Drinks Per Day: 0 Total Drinks Per Week: 0 Recreational Drug Use History: No - HOME MEDS Home Medications: Home Meds Hydrocodone/Acetaminophen [Hydrocodon-Acetaminophn 10-325] 1 - 2 tab PO Q6H PRN 12/09/16 [History] Temazepam 30 mg PO BEDTIME 12/09/16 [History] Aspirin 81 mg PO DAILY 01/18/17 [History] Omeprazole [Omeprazole] 20 mg PO DAILY 02/16/17 [History] Polyethylene Glycol 3350 [MiraLAX] 1 dose PO DAILY 02/16/17 [History] Venlafaxine HCl [Venlafaxine ER] 75 mg PO DAILY 02/16/17 [History] - CURRENT (IN HOUSE) MEDS Current Meds: Current Medications Lactated Ringer's (Ringers, Lactated) 1,000 mls @ 125 mls/hr IV ASDIRECTED RADHA Stop: 02/17/17 23:00 Last Admin: 02/17/17 09:20 Dose: 125 mls/hr Lidocaine/Sodium Bicarbonate (Buffered Lidocaine 1% In Ns 8.4%) 0.25 ml .XX ONETIME PRN PRN Reason: Prior to IV Start Stop: 02/17/17 18:00 Last Admin: 02/17/17 09:20 Dose: 0.25 ml Sodium Chloride (Saline Flush) 10 ml FLUSH ASDIRECTED PRN PRN Reason: Keep Vein Open Stop: 02/17/17 18:00
[2017-02-17] MEDS ORDERED: Succinylcholine/Normal Saline 100 MG/5 ML Syringe ONE (09:58)
[2017-02-17] MEDS ORDERED: Propofol 200 MG/20 ML SDV ONE ×2 (09:58→10:00)
[2017-02-17] MEDS ORDERED: Midazolam 1 MG/ML 2 ML SDV ONE (09:58)
[2017-02-17] MEDS ORDERED: ceFAZolin 1 GM Vial ONE (09:58)
[2017-02-17] MEDS ORDERED: Ondansetron 4 MG/2 ML SDV ONE (09:58)
[2017-02-17] MEDS ORDERED: fentaNYL 250 MCG/5 ML SDV ONE (09:59)
[2017-02-17] MEDS ORDERED: Iodine/Sodium Iodide 2% Tincture 30 ML Bottle ONE ×2 (09:59→10:28)
[2017-02-17] MEDS ORDERED: Dexamethasone 4 MG/ML SDV ONE ×2 (10:00→10:11)
[2017-02-17] MEDS ORDERED: Lidocaine 1% 2 ML ONE ×2 (10:11)
[2017-02-17] MEDS: Lidocaine 1% 30 ML SDV ONE ×2 (11:08→11:51)
[2017-02-17] MEDS ORDERED: HYDROmorphone 0.5 MG/0.5 ML Syringe IVPUSH PRN ×2 (11:33→12:06)
[2017-02-17] MEDS ORDERED: Acetaminophen/HYDROcodone 325-5 MG Tab PO PRN (11:33)
[2017-02-17] MEDS ORDERED: Ondansetron 4 MG/2 ML SDV IVPUSH PRN (11:33)
[2017-02-17] MEDS ORDERED: Ketamine 500 mg/10 ML MDV ONE (11:43)
[2017-02-17] MEDS ORDERED: Phenylephrine 1% 10 MG/ML SDV ONE (11:55)
[2017-02-17] MEDS ORDERED: fentaNYL 100 MCG/2 ML SDV IVPUSH PRN (12:06)
[2017-02-17] MEDS ORDERED: Ketorolac 30 MG/ML SDV ONE (12:10)
--- NOTE | 2017-02-17 12:23 | PCM.POSTAN ---
POST ANESTHESIA ASSESSMENT - MENTAL STATUS Mental Status: Somnolent - VITAL SIGNS Pulse Rate: 100 SaO2: 94 Resp Rate: 19 Blood Pressure: 144/77 Temperature: 96.8 C - RESPIRATORY Respiratory Status: Respiratory Rate WNL, Airway Patent, O2 Saturation Stable, Supplemental Oxygen - CARDIOVASCULAR CV Status: Pulse Rate WNL, Blood Pressure Stable - GASTROINTESTINAL GI Status: No Symptoms - PAIN Pain Score: 0 - POST OP HYDRATION Hydration Status: Adequate & Stable
[2017-02-17] MEDS ORDERED: Lactated Ringers 1,000 ML ONE (13:08)
[2017-02-17 14:10] VITALS: BP 132/69
--- NOTE | 2017-02-17 18:30 | CR ---
Right ankle: Three fluoroscopic spot views were obtained of the right ankle. Study obtained utilizing C-arm device. Comparison: Previous right ankle study of 11/10/16. Previous short intramedullary nicole within the distal fibula is no longer seen. Ankle mortise is symmetric. Fluoroscopy time given as 3.8 seconds Impression: 1. Previous intramedullary nicole is no longer seen within the distal fibula. Diagnostic code #1
--- NOTE | 2017-02-18 08:42 | OR ---
DATE OF OPERATION: 02/17/2017 SURGEON: Bryn Jane MD PREOPERATIVE DIAGNOSIS: Status post fracture of right ankle with Ramsey nicole, right fibula. POSTOPERATIVE DIAGNOSIS: Status post fracture of right ankle with Ramsey nicole, right fibula. ANESTHESIA: Sedation with local. OPERATION PERFORMED: Removal of Ramsey nicole, lateral malleolus, right ankle. DESCRIPTION OF PROCEDURE: The patient was taken to the operative room in supine position, where she was placed under heavy sedation anesthesia. After adequate anesthesia, the operation proceeded with prepping and draping of the right leg by standard technique. After prepping and draping, a local infiltration of 1% lidocaine was used around the area of the nicole insertion site. The tip of it was identified using an 18-gauge needle on fluoroscopy. An incision was placed on the distal end of the fibula. Blunt dissection with a hemostat was carried down to the tip of the Ramsey nicole and then sharp dissection was used around the Ramsey nicole to free it up from the scar tissue. Once that was obtained, the Ramsey nicole was then loosened from the fibula and then removed in a retrograde fashion. The area was then thoroughly irrigated with the irrigation solution and then the deep tissues were closed with 3-0 Vicryl, and the skin was then closed with 4-0 Prolene. The patient was placed in a standard soft dressing. Fluoroscopy finished the procedure with hardcopy x-rays. These were found to be satisfactory. The patient tolerated this whole procedure well and left the operating room in a stable condition to room for recovery. ESTIMATED BLOOD LOSS: MMODAL /[id number]
== END 2017-02-17 14:15 | disposition home or self-care (01) ==
LOC: JD.SDS 08:46
PROVIDERS: ATTEND Specialist
DX: T84.84XA Pain due to internal orthopedic prosthetic devices, implants and grafts, initial encounter (principal); I10 Essential (primary) hypertension; M06.9 Rheumatoid arthritis, unspecified; F17.210 Nicotine dependence, cigarettes, uncomplicated; D68.61 Antiphospholipid syndrome; G89.29 Other chronic pain; K21.9 Gastro-esophageal reflux disease without esophagitis; M32.9 Systemic lupus erythematosus, unspecified; F32.9 Major depressive disorder, single episode, unspecified; G43.909 Migraine, unspecified, not intractable, without status migrainosus; E66.01 Morbid (severe) obesity due to excess calories; M79.7 Fibromyalgia; Z87.01 Personal history of pneumonia (recurrent); Z85.41 Personal history of malignant neoplasm of cervix uteri; Z88.0 Allergy status to penicillin; Z88.1 Allergy status to other antibiotic agents; Z88.5 Allergy status to narcotic agent; Z88.6 Allergy status to analgesic agent; Z88.8 Allergy status to other drugs, medicaments and biological substances; Z79.52 Long term (current) use of systemic steroids; Z79.82 Long term (current) use of aspirin; Z79.899 Other long term (current) drug therapy; Z98.51 Tubal ligation status; Z90.710 Acquired absence of both cervix and uterus; Z98.890 Other specified postprocedural states; Z68.38 Body mass index [BMI] 38.0-38.9, adult
CPT/HCPCS: 20680; 76000; A9270; J0690; J1100; J1170; J1885; J2250; J2405; J3010; J7120; 01480; J0330; J2370; J2704

== ENCOUNTER 2017-04-05 18:47 | Emergency (ER) | payer BC, MEDICARE, MEDICAID ==
[2017-04-05 19:11] VITALS: BP 164/82
--- NOTE | 2017-04-05 19:20 | EDM.PDOC ---
ED HPI GENERAL MEDICAL PROBLEM - General Chief Complaint: Laceration Stated Complaint: laceration to hand Time Seen by Provider: 04/05/17 19:10 Source of Information: Reports: Patient History Limitations: Reports: No Limitations - History of Present Illness INITIAL COMMENTS - FREE TEXT/NARRATIVE: Patient is a 56-year-old female presents ED complaining of small laceration to the base of the right thumb. Patient states she was using a knife to try to cut out some wax on a candle accidentally cutting herself. Bleeding was controlled with direct pressure. Tetanus status is up-to-date. Denies any numbness or tingling to her thumb or decreased range of motion. Minimal pain present. No other complaints. Right 1-Thumb Pain Score (Numeric/FACES): 1 - Related Data Allergies Allergy/AdvReac Type Severity Reaction Status Date / Time erythromycin lactobionate Allergy Blisters Verified 04/05/17 19:12 [From Erythrocin] levofloxacin [From Levaquin] Allergy Other Verified 04/05/17 19:12 linezolid [From Zyvox] Allergy Cannot Verified 04/05/17 19:12 Remember meloxicam [From Mobic] Allergy Cannot Verified 04/05/17 19:12 Remember milnacipran [From Savella] Allergy Cannot Verified 04/05/17 19:12 Remember oxycodone HCl Allergy Difficulty Verified 04/05/17 19:12 [From OxyContin] Breathing pregabalin [From Lyrica] Allergy Cannot Verified 04/05/17 19:12 Remember tetracycline Allergy Blisters Verified 04/05/17 19:12 amoxicillin AdvReac Nausea and Verified 04/05/17 19:12 Vomiting eszopiclone [From Lunesta] AdvReac Delusions Verified 04/05/17 19:12 Penicillins AdvReac Blisters Verified 04/05/17 19:12 tapentadol HCl [From Nucynta] AdvReac Numbness Verified 04/05/17 19:12 Home Meds: Home Meds Hydrocodone/Acetaminophen [Hydrocodon-Acetaminophn 10-325] 1 - 2 tab PO Q6H PRN 12/09/16 [History] Temazepam 30 mg PO BEDTIME 12/09/16 [History] Aspirin 81 mg PO DAILY 01/18/17 [History] Omeprazole [Omeprazole] 20 mg PO DAILY 02/16/17 [History] Polyethylene Glycol 3350 [MiraLAX] 1 dose PO DAILY 02/16/17 [History] Venlafaxine HCl [Venlafaxine ER] 75 mg PO DAILY 02/16/17 [History] Past Medical History HEENT History: Reports: Sinusitis Other HEENT History: wears glasses, TMJ pain, R ear pain, wears glasses Cardiovascular History: Reports: Hypertension, Other (See Below) Other Cardiovascular History: pericarditis (chest pain), lower extremity edema Respiratory History: Reports: None, Bronchitis, Recurrent, Pneumonia, Recurrent , Other (See Below) Other Respiratory History: cough Gastrointestinal History: Reports: None, GERD Other Gastrointestinal History: stomach pain, nausea, epigastric pain, elevated liver enzymes, change in bowel habits, ventral hernia Genitourinary History: Reports: None, Other (See Below) Other Genitourinary History: frequency, UTIs, vaginosis Other OB/BYN History: Menopause Musculoskeletal History: Reports: Fibromyalgia, Other (See Below) Other Musculoskeletal History: R achilles tendon contracture, R ankle fracture, R knee pain and medical meniscus tear, R tibialis posterior tendinitis Neurological History: Reports: Headaches, Chronic, Migraines, Vertigo Psychiatric History: Reports: Anxiety, Depression Endocrine/Metabolic History: Reports: None, Obesity/BMI 30+ Hematologic History: Reports: None, Other (See Below) Other Hematologic History: antiphospholipid syndrome Immunologic History: Reports: SLE, Other (See Below) Other Immunologic History: Lupus Oncologic (Cancer) History: Reports: Cervix Dermatologic History: Reports: None, Other (See Below) Other Dermatologic History: rosacea, rash, skin neoplasm, herpes zoster - Infectious Disease History Infectious Disease History: Reports: None - Past Surgical History Head Surgeries/Procedures: Reports: None Cardiovascular Surgical History: Reports: None GI Surgical History: Reports: Colonoscopy Female Surgical History: Reports: Hysterectomy, Tubal Ligation, Other (See Below) Other Female Surgeries/Procedures: laparoscopy Musculoskeletal Surgical History: Reports: Carpal Tunnel, Other (See Below) Other Musculoskeletal Surgeries/Procedures:: right knee surgery and left ulnar nerve surgery, ORIF R ankle Social & Family History - Family History Family Medical History: Noncontributory Cardiac: Reports: DE Oncologic: Reports: Bone, Breast, Lung - Tobacco Use Smoking Status *Q: Current Every Day Smoker (17 years 0.5ppd) Years of Tobacco use: 30 Packs/Tins Daily: 0.5 Used Tobacco, but Quit: Yes Month Tobacco Last Used: october Second Hand Smoke Exposure: Yes - Caffeine Use Caffeine Use: Reports: Coffee - Alcohol Use Days Per Week of Alcohol Use: 0 Number of Drinks Per Day: 0 Total Drinks Per Week: 0 - Recreational Drug Use Recreational Drug Use: No - Living Situation & Occupation Living situation: Reports: Occupation: Unemployed ED ROS GENERAL - Review of Systems Review Of Systems: ROS reveals no pertinent complaints other than HPI. ED EXAM, SKIN/RASH Exam: See Below Exam Limited By: No Limitations General Appearance: Alert, WD/WN, No Apparent Distress Ears: Hearing Grossly Normal Nose: Normal Inspection Throat/Mouth: Normal Voice, No Airway Compromise Neck: Normal Inspection, Supple Respiratory/Chest: No Respiratory Distress, No Accessory Muscle Use Cardiovascular: Normal Peripheral Pulses, Regular Rate, Rhythm Peripheral Pulses: 2+: Radial (R) Extremities: Other (Approximately half centimeters deep laceration to the base of the right thumb palmar side. No bleeding present. Minimal pain present. No sensory or motor distally noted.) Psychiatric: Normal Affect, Normal Mood Skin: Warm, Dry, Normal Color ED SKIN PROCEDURES - Laceration/Wound Repair Right Ventral Hand Lac/Wound length In cm: 0.5 Appearance: Subcutaneous Distal NVT: Neuro & Vascular Intact Anesthetic Type: Local Local Anesthesia - Lidocaine (Xylocaine): 1% Plain Local Anesthetic Volume: 4cc Skin Prep: Chlorhexidine (Hibiciens), Saline, Sterile Drape Exploration/Debridement/Repair: Wound Explored, In a Bloodless Field, Explored to Base, No Foreign Material Found, Multiple Flaps Aligned Closed with: Sutures Suture Size: 4-0 # of Sutures: 2 Suture Type: Prolene, Interrupted, Simple Drain Placement: No Sterile Dressing Applied: Nurse Tetanus Status Addressed: Yes Complications: No Course - Vital Signs Last Recorded V/S: Last Vital Signs Temp 97.8 F 04/05/17 19:08 Pulse 93 04/05/17 19:08 Resp 18 04/05/17 19:08 BP 164/82 H 04/05/17 19:08 Pulse Ox 98 04/05/17 19:08 - Re-Assessments/Exams Free Text/Narrative Re-Assessment/Exam: Laceration closed no complications. Discharge instructions as documented. Departure - Departure Time of Disposition: 20:00 Disposition: Home, Self-Care 01 Condition: Good Clinical Impression: Hand laceration Qualifiers: Encounter type: initial encounter Foreign body presence: without foreign body Laterality: right Qualified Code(s): S61.411A - Laceration without foreign body of right hand, initial encounter - Discharge Information Instructions: Laceration Care, Adult, [id number], Stitches, Delaney, or Adhesive Wound Closure, [id number] Referrals: PCP,Not In Area [Primary Care Provider] - Forms: ED Department Discharge Additional Instructions: Cleanse site twice daily with soap and water, pat dry, reapply triple antibiotic ointment, and dressing. Sutures come out in approximately 7-10 days. Please follow up with a primary care provider at [facility] to have this done. Utilize ibuprofen and Tylenol as needed for pain. Do not soak the wound. Return to ED for any new or worsening symptoms.
== END 2017-04-05 20:00 | disposition home or self-care (01) ==
LOC: JD.ED 18:47
DX: S61.011A Laceration without foreign body of right thumb without damage to nail, initial encounter (principal); Z88.1 Allergy status to other antibiotic agents; Z88.8 Allergy status to other drugs, medicaments and biological substances; Z88.0 Allergy status to penicillin; Z79.899 Other long term (current) drug therapy; Z79.82 Long term (current) use of aspirin; I10 Essential (primary) hypertension; F17.210 Nicotine dependence, cigarettes, uncomplicated; W26.0XXA Contact with knife, initial encounter
CPT/HCPCS: 12001; 99283-25

== ENCOUNTER 2017-07-03 11:29 | Emergency (ER) | payer BC, MEDICARE, MEDICAID ==
[2017-07-03 11:43] VITALS: BP 157/87
[2017-07-03] MEDS ORDERED: Sodium Chloride 0.9% 10 ML Syringe FLUSH PRN (11:55)
--- NOTE | 2017-07-03 11:59 | EDM.PDOC ---
ED HPI GENERAL MEDICAL PROBLEM - General Chief Complaint: Chest Pain Stated Complaint: CHEST PAIN FACE AND ARM TINGLING Time Seen by Provider: 07/03/17 11:43 Source of Information: Reports: Patient History Limitations: Reports: No Limitations - History of Present Illness INITIAL COMMENTS - FREE TEXT/NARRATIVE: The patient presents with chest pain. She has not been feeling well for about 4 weeks. She cannot get into great detail when I ask her how she is feeling. She has generalized weakness, fatigue and she did have a cough. The cough is better but now for the past 4 days she has had left sided chest pain that is pressure like. She also has some pain to her left arm with tingling and tingling to her left face. She has no fever now but she does have some chills. She has some mild shortness of breath. She has no abdominal pain, nausea or vomiting. She had some diarrhea today. She has on dysuria. Onset: Gradual Duration: Day(s): (4) Location: Reports: Chest Quality: Reports: Pressure Severity: Moderate Improves with: Reports: None Worsens with: Reports: None Associated Symptoms: Reports: Chest Pain, Fever/Chills, Shortness of Breath. Denies: Cough, Nausea/Vomiting Chest Pain Score (Numeric/FACES): 6 - Related Data Allergies Allergy/AdvReac Type Severity Reaction Status Date / Time erythromycin lactobionate Allergy Blisters Verified 07/03/17 11:37 [From Erythrocin] levofloxacin [From Levaquin] Allergy Other Verified 07/03/17 11:37 linezolid [From Zyvox] Allergy Cannot Verified 07/03/17 11:37 Remember meloxicam [From Mobic] Allergy Cannot Verified 07/03/17 11:37 Remember milnacipran [From Savella] Allergy Cannot Verified 07/03/17 11:37 Remember oxycodone HCl Allergy Difficulty Verified 07/03/17 11:37 [From OxyContin] Breathing pregabalin [From Lyrica] Allergy Cannot Verified 07/03/17 11:37 Remember tetracycline Allergy Blisters Verified 07/03/17 11:37 amoxicillin AdvReac Nausea and Verified 07/03/17 11:37 Vomiting eszopiclone [From Lunesta] AdvReac Delusions Verified 07/03/17 11:37 Penicillins AdvReac Blisters Verified 07/03/17 11:37 tapentadol HCl [From Nucynta] AdvReac Numbness Verified 07/03/17 11:37 Home Meds: Home Meds Hydrocodone/Acetaminophen [Hydrocodon-Acetaminophn 10-325] 1 - 2 tab PO Q6H PRN 12/09/16 [History] Temazepam 30 mg PO BEDTIME 12/09/16 [History] Aspirin 81 mg PO DAILY 01/18/17 [History] Omeprazole [Omeprazole] 20 mg PO DAILY 02/16/17 [History] Polyethylene Glycol 3350 [MiraLAX] 1 dose PO DAILY 02/16/17 [History] Past Medical History HEENT History: Reports: Sinusitis Other HEENT History: wears glasses, TMJ pain, R ear pain, wears glasses Cardiovascular History: Reports: Hypertension, Other (See Below) Other Cardiovascular History: pericarditis (chest pain), lower extremity edema Respiratory History: Reports: None, Bronchitis, Recurrent, Pneumonia, Recurrent , Other (See Below) Other Respiratory History: cough Gastrointestinal History: Reports: None, GERD Other Gastrointestinal History: stomach pain, nausea, epigastric pain, elevated liver enzymes, change in bowel habits, ventral hernia Genitourinary History: Reports: None, Other (See Below) Other Genitourinary History: frequency, UTIs, vaginosis Other OB/BYN History: Menopause Musculoskeletal History: Reports: Fibromyalgia, Other (See Below) Other Musculoskeletal History: R achilles tendon contracture, R ankle fracture, R knee pain and medical meniscus tear, R tibialis posterior tendinitis Neurological History: Reports: Headaches, Chronic, Migraines, Vertigo Psychiatric History: Reports: Anxiety, Depression Endocrine/Metabolic History: Reports: None, Obesity/BMI 30+ Hematologic History: Reports: None, Other (See Below) Other Hematologic History: antiphospholipid syndrome Immunologic History: Reports: SLE, Other (See Below) Other Immunologic History: Lupus Oncologic (Cancer) History: Reports: Cervix Dermatologic History: Reports: None, Other (See Below) Other Dermatologic History: rosacea, rash, skin neoplasm, herpes zoster - Infectious Disease History Infectious Disease History: Reports: None - Past Surgical History Head Surgeries/Procedures: Reports: None Cardiovascular Surgical History: Reports: None GI Surgical History: Reports: Colonoscopy Female Surgical History: Reports: Hysterectomy, Tubal Ligation, Other (See Below) Other Female Surgeries/Procedures: laparoscopy Musculoskeletal Surgical History: Reports: Carpal Tunnel, Other (See Below) Other Musculoskeletal Surgeries/Procedures:: right knee surgery and left ulnar nerve surgery, ORIF R ankle Social & Family History - Family History Family Medical History: Noncontributory Cardiac: Reports: [place] Oncologic: Reports: Bone, Breast, Lung - Tobacco Use Smoking Status *Q: Current Every Day Smoker (17 years 0.5ppd) Years of Tobacco use: 30 Packs/Tins Daily: 0.5 Used Tobacco, but Quit: Yes Month Tobacco Last Used: october Second Hand Smoke Exposure: Yes - Caffeine Use Caffeine Use: Reports: Coffee - Alcohol Use Days Per Week of Alcohol Use: 0 Number of Drinks Per Day: 0 Total Drinks Per Week: 0 - Recreational Drug Use Recreational Drug Use: No - Living Situation & Occupation Living situation: Reports: Occupation: Unemployed ED ROS GENERAL - Review of Systems Review Of Systems: See Below Constitutional: Reports: Malaise, Weakness, Fatigue HEENT: Reports: No Symptoms Respiratory: Reports: Shortness of Breath Cardiovascular: Reports: Chest Pain Endocrine: Reports: No Symptoms GI/Abdominal: Reports: No Symptoms : Reports: No Symptoms Musculoskeletal: Reports: No Symptoms Skin: Reports: No Symptoms Neurological: Reports: Tingling (Left arm and left face) ED EXAM, GENERAL - Physical Exam Exam: See Below Exam Limited By: No Limitations General Appearance: Alert, No Apparent Distress Ears: Normal External Exam Nose: Normal Inspection Head: Atraumatic, Normocephalic Neck: Normal Inspection Respiratory/Chest: No Respiratory Distress, Lungs Clear, Normal Breath Sounds Cardiovascular: Regular Rate, Rhythm, No Edema, No Murmur GI/Abdominal: Soft, Non-Tender, No Organomegaly, No Mass Back Exam: Normal Inspection Extremities: Normal Inspection Neurological: Alert, Oriented, No Motor/Sensory Deficits EKG INTERPRETATION EKG Date: 07/03/17 Time: 11:50 Rhythm: NSR Rate (Beats/Min): 71 [place]: Normal P-Wave: Present QRS: Normal ST-T: Normal QT: Normal Course - Vital Signs Last Recorded V/S: Last Vital Signs Temp 98.7 F 07/03/17 11:39 Pulse 78 07/03/17 11:39 Resp 18 07/03/17 11:39 BP 157/87 H 07/03/17 11:39 Pulse Ox - Orders/Labs/Meds Orders: Active Orders 24 hr Category Date Time Status Cardiac Monitoring [RC] . DIRECTED Care 07/03/17 11:55 Active EKG Documentation Completion [RC] ASDIRECTED Care 07/03/17 11:53 Active Peripheral IV Care [RC] . DIRECTED Care 07/03/17 11:56 Active Sodium Chloride 0.9% [Saline Flush] Med 07/03/17 11:55 Active 10 ml FLUSH ASDIRECTED PRN Peripheral IV Insertion Adult [OM.PC] Stat Oth 07/03/17 11:55 Ordered EKG 12 Lead [EK] Stat Ther 07/03/17 11:53 Ordered Medication Orders Sodium Chloride (Saline Flush) 10 ml FLUSH ASDIRECTED PRN PRN Reason: Keep Vein Open Last Admin: 07/03/17 11:59 Dose: 10 ml Labs: Laboratory Tests 07/03/17 07/03/17 07/03/17 Range/Units 11:50 11:50 12:45 WBC 11.80 H (3.98-10.04) K/mm3 RBC 5.25 H (3.98-5.22) M/mm3 Hgb 14.4 (11.2-15.7) gm/L Hct 44.1 (34.1-44.9) % MCV 84.0 (79.4-94.8) fl MCH 27.4 (25.6-32.2) pg MCHC 32.7 (32.2-35.5) g/dl RDW Std Deviation 42.1 (36.4-46.3) fL Plt Count 274 (182-369) K/mm3 MPV 11.0 (9.4-12.3) fl Neut % (Auto) 55.1 (34.0-71.1) % Lymph % (Auto) 34.3 (19.3-51.7) % Luce % (Auto) 8.6 (4.7-12.5) % Eos % (Auto) 1.6 (0.7-5.8) Baso % (Auto) 0.2 (0.1-1.2) % Neut # (Auto) 6.51 H (1.56-6.13) K/mm3 Lymph # (Auto) 4.05 H (1.18-3.74) K/mm3 Luce # (Auto) 1.01 H (0.24-0.36) K/mm3 Eos # (Auto) 0.19 (0.04-0.36) K/mm3 Baso # (Auto) 0.02 (0.01-0.08) K/mm3 Sodium 140 (136-145) mEq/L Potassium 3.7 (3.5-5.1) mEq/L Chloride 102 (98-107) mEq/L Carbon Dioxide 28 (21-32) mEq/L Anion Gap 13.7 (5-15) BUN 13 (7-18) mg/dL Creatinine 0.9 (0.55-1.02) mg/dL Est Cr Clr Drug Dosing 60.27 mL/min Estimated GFR (MDRD) > 60 (>60) mL/min BUN/Creatinine Ratio 14.4 (14-18) Glucose 87 (74-106) mg/dL Calcium 9.3 (8.5-10.1) mg/dL Total Bilirubin 0.5 (0.2-1.0) mg/dL AST 19 (15-37) U/L ALT 30 (14-59) U/L Alkaline Phosphatase 105 (46-116) U/L Troponin I < 0.017 (0.00-0.056) ng/mL Total Protein 7.6 (6.4-8.2) g/dl Albumin 3.9 (3.4-5.0) g/dl Globulin 3.7 gm/dL Albumin/Globulin Ratio 1.1 (1-2) Urine Color Yellow (Yellow) Urine Appearance Clear (Clear) Urine pH 7.0 (5.0-8.0) Ur Specific [place] 1.015 (1.005-1.030) Urine Protein Negative (Negative) Urine Glucose (UA) Negative (Negative) Urine Ketones Negative (Negative) Urine Occult Blood Negative (Negative) Urine Nitrite Negative (Negative) Urine Bilirubin Negative (Negative) Urine Urobilinogen 0.2 (0.2-1.0) Ur Leukocyte Esterase Negative (Negative) Urine RBC Not seen (0-5) /hpf Urine WBC Not seen (0-5) /hpf Ur Epithelial Cells Not seen (0-5) /hpf Urine Bacteria Not seen (FEW) /hpf Urine Mucus Not seen (FEW) /hpf Urine Opiates Screen (NEGATIVE) Ur Buprenorphine Scrn (NEGATIVE) Ur Oxycodone Screen (NEGATIVE) Urine Methadone Screen (NEGATIVE) Ur Propoxyphene Screen (NEGATIVE) Ur Barbiturates Screen (NEGATIVE) Ur Tricyclics Screen (NEGATIVE) Ur Phencyclidine Scrn (NEGATIVE) Ur Amphetamine Screen (NEGATIVE) U Methamphetamines Scrn (NEGATIVE) U Benzodiazepines Scrn (NEGATIVE) U Cocaine Metab Screen (NEGATIVE) U Marijuana (THC) Screen (NEGATIVE) 07/03/17 Range/Units 12:54 WBC (3.98-10.04) K/mm3 RBC (3.98-5.22) M/mm3 Hgb (11.2-15.7) gm/L Hct (34.1-44.9) % MCV (79.4-94.8) fl MCH (25.6-32.2) pg MCHC (32.2-35.5) g/dl RDW Std Deviation (36.4-46.3) fL Plt Count (182-369) K/mm3 MPV (9.4-12.3) fl Neut % (Auto) (34.0-71.1) % Lymph % (Auto) (19.3-51.7) % Luce % (Auto) (4.7-12.5) % Eos % (Auto) (0.7-5.8) Baso % (Auto) (0.1-1.2) % Neut # (Auto) (1.56-6.13) K/mm3 Lymph # (Auto) (1.18-3.74) K/mm3 Luce # (Auto) (0.24-0.36) K/mm3 Eos # (Auto) (0.04-0.36) K/mm3 Baso # (Auto) (0.01-0.08) K/mm3 Sodium (136-145) mEq/L Potassium (3.5-5.1) mEq/L Chloride (98-107) mEq/L Carbon Dioxide (21-32) mEq/L Anion Gap (5-15) BUN (7-18) mg/dL Creatinine (0.55-1.02) mg/dL Est Cr Clr Drug Dosing mL/min Estimated GFR (MDRD) (>60) mL/min BUN/Creatinine Ratio (14-18) Glucose (74-106) mg/dL Calcium (8.5-10.1) mg/dL Total Bilirubin (0.2-1.0) mg/dL AST (15-37) U/L ALT (14-59) U/L Alkaline Phosphatase (46-116) U/L Troponin I (0.00-0.056) ng/mL Total Protein (6.4-8.2) g/dl Albumin (3.4-5.0) g/dl Globulin gm/dL Albumin/Globulin Ratio (1-2) Urine Color (Yellow) Urine Appearance (Clear) Urine pH (5.0-8.0) Ur Specific [place] (1.005-1.030) Urine Protein (Negative) Urine Glucose (UA) (Negative) Urine Ketones (Negative) Urine Occult Blood (Negative) Urine Nitrite (Negative) Urine Bilirubin (Negative) Urine Urobilinogen (0.2-1.0) Ur Leukocyte Esterase (Negative) Urine RBC (0-5) /hpf Urine WBC (0-5) /hpf Ur Epithelial Cells (0-5) /hpf Urine Bacteria (FEW) /hpf Urine Mucus (FEW) /hpf Urine Opiates Screen Presumptive positive H (NEGATIVE) Ur Buprenorphine Scrn Negative (NEGATIVE) Ur Oxycodone Screen Negative (NEGATIVE) Urine Methadone Screen Negative (NEGATIVE) Ur Propoxyphene Screen Negative (NEGATIVE) Ur Barbiturates Screen Negative (NEGATIVE) Ur Tricyclics Screen Negative (NEGATIVE) Ur Phencyclidine Scrn Negative (NEGATIVE) Ur Amphetamine Screen Negative (NEGATIVE) U Methamphetamines Scrn Negative (NEGATIVE) U Benzodiazepines Scrn Presumptive positive H (NEGATIVE) U Cocaine Metab Screen Negative (NEGATIVE) U Marijuana (THC) Screen Negative (NEGATIVE) Meds: Medications Generic Name Dose Route Start Last Admin Trade Name Freq PRN Reason Stop Dose Admin Sodium Chloride 10 ml 07/03/17 11:55 07/03/17 11:59 Saline Flush FLUSH 10 ml ASDIRECTED PRN Administration Keep Vein Open Discontinued Medications Generic Name Dose Route Start Last Admin Trade Name Freq PRN Reason Stop Dose Admin Hydromorphone HCl 1 mg 07/03/17 13:06 07/03/17 13:14 Dilaudid IVPUSH 07/03/17 13:07 1 mg ONETIME ONE Administration - Re-Assessments/Exams Free Text/Narrative Re-Assessment/Exam: 07/03/17 12:28 I ordered an IV saline lock, EKG, CXR, CT of his head and labs. 07/03/17 13:24 Her EKG shows a NSR with no acute changes. Her CXR looks good. Her head CT looks good. Her WBC was slightly elevated at 11.8. Her CMP was negative. Her troponin was negative. She still has a headache so I ordered some dilaudid 1mg IV. My nurses says the patient had some pseudoseizure activity. When they went in to check on her, she stopped when they talked to her. I do not feel this is a true seizure. 07/03/17 14:25 He UA shows no UTI. She saw Dr Love for some back and neck problems and he was referring her to neurology. He was concerned because she has some numbness and tingling with weakness at times in either leg or arm. He wanted her worked up for MS. She is not getting in with anyone until the end of July. I was able to get her in for an MRI next week at 2pm on . I will have her follow up with Uzma Mckoy after that. Departure - Departure Time of Disposition: 14:30 Disposition: Home, Self-Care 01 Condition: Good Clinical Impression: Tingling of left arm and left side of face, Weakness Chest pain Qualifiers: Chest pain type: unspecified Qualified Code(s): R07.9 - Chest pain, unspecified Referrals: Uzma Mckoy, [employer] [Primary Care Provider] - 1 Week Forms: ED Department Discharge Additional Instructions: Take your medication as prescribed. I have a MRI of your brain scheduled for the 09 of July at 11am. Please come early at 10:30 am to register. Please return if you are worse. - My Orders Last 24 Hours: My Active Orders 07/03/17 11:53 EKG Documentation Completion [RC] ASDIRECTED EKG 12 Lead [EK] Stat 07/03/17 11:55 Cardiac Monitoring [RC] . DIRECTED Sodium Chloride 0.9% [Saline Flush] 10 ml FLUSH ASDIRECTED PRN Peripheral IV Insertion Adult [OM.PC] Stat 07/03/17 11:56 Peripheral IV Care [RC] . DIRECTED - Assessment/Plan Last 24 Hours: My Active Orders 07/03/17 11:53 EKG Documentation Completion [RC] ASDIRECTED EKG 12 Lead [EK] Stat 07/03/17 11:55 Cardiac Monitoring [RC] . DIRECTED Sodium Chloride 0.9% [Saline Flush] 10 ml FLUSH ASDIRECTED PRN Peripheral IV Insertion Adult [OM.PC] Stat 07/03/17 11:56 Peripheral IV Care [RC] . DIRECTED
--- NOTE | 2017-07-03 12:19 | CT ---
Head CT Technique: Multiple axial sections through the brain were obtained. Intravenous contrast was not utilized. Comparison: No prior intracranial imaging. Findings: Ventricles along with basal cisterns and sulci over the convexities are within normal limits for the patient's age. No abnormal parenchymal densities are seen. No evidence of intracranial hemorrhage. No midline shift or mass effect is seen. Bone window settings were reviewed which shows no acute calvarial abnormality. Visualized sinuses are clear. Impression: 1. No abnormality is identified on noncontrast head CT exam. Diagnostic code #1
--- NOTE | 2017-07-03 12:26 | CR ---
Chest: Portable view of the chest was obtained. Comparison: Prior chest x-ray of 02/25/16. Heart size and mediastinum are within normal limits for portable technique. Lungs are clear. Bony structures shows degenerative endplate spurring within the spine. Impression: 1. Nothing acute is appreciated on portable chest x-ray. Diagnostic code #2
[2017-07-03] MEDS ORDERED: HYDROmorphone 1 MG/ML Syringe IVPUSH ONE (13:06)
== END 2017-07-03 14:56 | disposition home or self-care (01) ==
LOC: SUPCPDRO 11:29 → JD.ED 11:29
DX: R07.9 Chest pain, unspecified (principal); R20.2 Paresthesia of skin; R53.1 Weakness; I10 Essential (primary) hypertension; F17.210 Nicotine dependence, cigarettes, uncomplicated; Z88.1 Allergy status to other antibiotic agents; Z88.8 Allergy status to other drugs, medicaments and biological substances; Z88.0 Allergy status to penicillin; Z88.5 Allergy status to narcotic agent; Z79.82 Long term (current) use of aspirin; Z87.01 Personal history of pneumonia (recurrent)
CPT/HCPCS: 36415; 70450; 71010; 80053; 80306; 81001; 84484; 85025; 87804; 93005; 96374; 99285; J1170; J7050; 93010; 99284-25

== ENCOUNTER 2018-01-09 21:17 | Emergency (ER) | payer BC, MEDICARE ==
[2018-01-09 21:36] VITALS: BP 129/102
[2018-01-09] MEDS ORDERED: Sodium Chloride 0.9% 10 ML Syringe FLUSH PRN (21:43)
[2018-01-09] MEDS ORDERED: diphenhydrAMINE 50 MG/ML SDV IVPUSH ONE (21:44)
[2018-01-09] MEDS ORDERED: methylPREDNISolone Sodium Succinate 125 MG/2 ML SDV IVPUSH ONE (21:44)
[2018-01-09] MEDS ORDERED: Famotidine 20 MG/2 ML SDV IVPUSH ONE (21:44)
--- NOTE | 2018-01-09 21:56 | EDM.PDOC ---
ED HPI GENERAL MEDICAL PROBLEM - General Chief Complaint: Skin Complaint Stated Complaint: CHIGGERS Time Seen by Provider: 01/09/18 21:29 Source of Information: Reports: Patient History Limitations: Reports: No Limitations - History of Present Illness INITIAL COMMENTS - FREE TEXT/NARRATIVE: The patient was out in some tall grass today and this evening she developed burning pain and itching to both lower legs, ankles and feet. She feels she has chigger bites. She has tried numerous home remedies and nothing is working. She has no fever or chills. She has no other symptoms. Onset: Gradual Duration: Hour(s): Location: Reports: Lower Extremity, Left, Lower Extremity, Right Quality: Reports: Other (Itching) Severity: Moderate Improves with: Reports: None Worsens with: Reports: None Associated Symptoms: Reports: No Other Symptoms - Related Data Allergies Allergy/AdvReac Type Severity Reaction Status Date / Time erythromycin lactobionate Allergy Blisters Verified 01/09/18 21:36 [From Erythrocin] levofloxacin [From Levaquin] Allergy Other Verified 01/09/18 21:36 linezolid [From Zyvox] Allergy Cannot Verified 01/09/18 21:36 Remember meloxicam [From Mobic] Allergy Cannot Verified 01/09/18 21:36 Remember milnacipran [From Savella] Allergy Cannot Verified 01/09/18 21:36 Remember oxycodone HCl Allergy Difficulty Verified 01/09/18 21:36 [From OxyContin] Breathing pregabalin [From Lyrica] Allergy Cannot Verified 01/09/18 21:36 Remember tetracycline Allergy Blisters Verified 01/09/18 21:36 amoxicillin AdvReac Nausea and Verified 01/09/18 21:36 Vomiting eszopiclone [From Lunesta] AdvReac Delusions Verified 01/09/18 21:36 Penicillins AdvReac Blisters Verified 01/09/18 21:36 tapentadol HCl [From Nucynta] AdvReac Numbness Verified 01/09/18 21:36 Home Meds: Home Meds Hydrocodone/Acetaminophen [Hydrocodon-Acetaminophn 10-325] 1 - 2 tab PO Q6H PRN 12/09/16 [History] Temazepam 30 mg PO BEDTIME 12/09/16 [History] Aspirin 81 mg PO DAILY 01/18/17 [History] Omeprazole 20 mg PO DAILY 02/16/17 [History] Polyethylene Glycol 3350 [MiraLAX] 1 dose PO DAILY 02/16/17 [History] Past Medical History HEENT History: Reports: Sinusitis Other HEENT History: wears glasses, TMJ pain, R ear pain, wears glasses Cardiovascular History: Reports: Hypertension, Other (See Below) Other Cardiovascular History: pericarditis (chest pain), lower extremity edema Respiratory History: Reports: None, Bronchitis, Recurrent, Pneumonia, Recurrent , Other (See Below) Other Respiratory History: cough Gastrointestinal History: Reports: None, GERD Other Gastrointestinal History: stomach pain, nausea, epigastric pain, elevated liver enzymes, change in bowel habits, ventral hernia Genitourinary History: Reports: None, Other (See Below) Other Genitourinary History: frequency, UTIs, vaginosis 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 Musculoskeletal History: Reports: Fibromyalgia, Other (See Below) Other Musculoskeletal History: R achilles tendon contracture, R ankle fracture, R knee pain and medical meniscus tear, R tibialis posterior tendinitis Neurological History: Reports: Headaches, Chronic, Migraines, Vertigo Psychiatric History: Reports: Anxiety, Depression Endocrine/Metabolic History: Reports: None, Obesity/BMI 30+ Hematologic History: Reports: None, Other (See Below) Other Hematologic History: antiphospholipid syndrome Immunologic History: Reports: SLE, Other (See Below) Other Immunologic History: Lupus Oncologic (Cancer) History: Reports: Cervix Dermatologic History: Reports: None, Other (See Below) Other Dermatologic History: rosacea, rash, skin neoplasm, herpes zoster - Infectious Disease History Infectious Disease History: Reports: None - Past Surgical History Head Surgeries/Procedures: Reports: None Cardiovascular Surgical History: Reports: None GI Surgical History: Reports: Colonoscopy Female Surgical History: Reports: Hysterectomy, Tubal Ligation, Other (See Below) Other Female Surgeries/Procedures: laparoscopy Musculoskeletal Surgical History: Reports: Carpal Tunnel, Other (See Below) Other Musculoskeletal Surgeries/Procedures:: right knee surgery and left ulnar nerve surgery, ORIF R ankle Social & Family History - Family History Family Medical History: Noncontributory Cardiac: Reports: [place] Oncologic: Reports: Bone, Breast, Lung - Tobacco Use Smoking Status *Q: Current Every Day Smoker Years of Tobacco use: 15 Packs/Tins Daily: 1 - Caffeine Use Caffeine Use: Reports: Coffee - Recreational Drug Use Recreational Drug Use: No - Living Situation & Occupation Living situation: Reports: Occupation: Unemployed ED ROS GENERAL - Review of Systems Review Of Systems: See Below Constitutional: Reports: No Symptoms HEENT: Reports: No Symptoms Respiratory: Reports: No Symptoms Cardiovascular: Reports: No Symptoms Endocrine: Reports: No Symptoms GI/Abdominal: Reports: No Symptoms : Reports: No Symptoms Skin: Reports: Rash ED EXAM, SKIN/RASH Exam: See Below Exam Limited By: No Limitations General Appearance: Alert, No Apparent Distress Ears: Normal External Exam Nose: Normal Inspection Head: Atraumatic, Normocephalic Neck: Normal Inspection Respiratory/Chest: No Respiratory Distress Extremities: Other (multiple papules with mild erythema to the left and right lower leg, ankles and feet.) Neurological: Alert, Oriented, No Motor/Sensory Deficits Course - Vital Signs Last Recorded V/S: Last Vital Signs Temp 98.7 F 01/09/18 21:33 Pulse 85 01/09/18 21:33 Resp 18 01/09/18 21:33 BP 129/102 H 01/09/18 21:33 Pulse Ox 95 01/09/18 21:33 - Orders/Labs/Meds Orders: Active Orders 24 hr Category Date Time Status Peripheral IV Care [RC] . DIRECTED Care 01/09/18 21:43 Active Sodium Chloride 0.9% [Saline Flush] Med 01/09/18 21:43 Active 10 ml FLUSH ASDIRECTED PRN Peripheral IV Insertion Adult [OM.PC] Routine Oth 01/09/18 21:43 Ordered Medication Orders Sodium Chloride (Saline Flush) 10 ml FLUSH ASDIRECTED PRN PRN Reason: Keep Vein Open Last Admin: 01/09/18 21:54 Dose: 10 ml Meds: Medications Generic Name Dose Route Start Last Admin Trade Name Freq PRN Reason Stop Dose Admin Sodium Chloride 10 ml 01/09/18 21:43 01/09/18 21:54 Saline Flush FLUSH 10 ml ASDIRECTED PRN Administration Keep Vein Open Discontinued Medications Generic Name Dose Route Start Last Admin Trade Name Freq PRN Reason Stop Dose Admin Diphenhydramine HCl 50 mg 01/09/18 21:44 01/09/18 21:52 Benadryl IVPUSH 01/09/18 21:45 50 mg ONETIME ONE Administration Famotidine 20 mg 01/09/18 21:44 01/09/18 21:53 Pepcid IVPUSH 01/09/18 21:45 20 mg ONETIME ONE Administration Methylprednisolone Sodium Succinate 125 mg 01/09/18 21:44 01/09/18 21:51 Solu-Medrol IVPUSH 01/09/18 21:45 125 mg ONETIME ONE Administration - Re-Assessments/Exams Free Text/Narrative Re-Assessment/Exam: 01/09/18 21:56 I ordered an IV saline lock, solu-medrol 125mg IV, benadryl 50mg IV and pepcid 20mg IV. 01/09/18 22:18 She feels a little better. I will get her on some prednisone for a few days. Departure - Departure Time of Disposition: 22:20 Disposition: Home, Self-Care 01 Condition: Good Clinical Impression: Chigger bite, Itching - Discharge Information Referrals: Uzma Mckoy, [employer] [Primary Care Provider] - 1 Week Forms: ED Department Discharge Additional Instructions: Wash your feet and legs with warm soapy water 2 times per day and apply hydrocortisone cream 3 times per day for 5 days. Take benadryl 50mg every 6 hours as needed for any itching. Take pepcid 20mg daily for 5 days. Take prednisone 40mg daily for 5 days. Please return if you are worse. - My Orders Last 24 Hours: My Active Orders 01/09/18 21:43 Peripheral IV Care [RC] . DIRECTED Sodium Chloride 0.9% [Saline Flush] 10 ml FLUSH ASDIRECTED PRN Peripheral IV Insertion Adult [OM.PC] Routine - Assessment/Plan Last 24 Hours: My Active Orders 01/09/18 21:43 Peripheral IV Care [RC] . DIRECTED Sodium Chloride 0.9% [Saline Flush] 10 ml FLUSH ASDIRECTED PRN Peripheral IV Insertion Adult [OM.PC] Routine
== END 2018-01-09 22:27 | disposition home or self-care (01) ==
LOC: JD.ED 21:17
DX: B88.0 Other acariasis (principal); S90.562A Insect bite (nonvenomous), left ankle, initial encounter; S90.561A Insect bite (nonvenomous), right ankle, initial encounter; S90.862A Insect bite (nonvenomous), left foot, initial encounter; S90.861A Insect bite (nonvenomous), right foot, initial encounter; I10 Essential (primary) hypertension; K21.9 Gastro-esophageal reflux disease without esophagitis; F17.210 Nicotine dependence, cigarettes, uncomplicated; Z88.1 Allergy status to other antibiotic agents; Z88.8 Allergy status to other drugs, medicaments and biological substances; Z88.0 Allergy status to penicillin; Z79.82 Long term (current) use of aspirin; W57.XXXA Bitten or stung by nonvenomous insect and other nonvenomous arthropods, initial encounter
CPT/HCPCS: 96374; 96375; 99282; J1200; J2930; J7050; 99284

== ENCOUNTER 2018-07-25 18:37 | Emergency (ER) | payer BC, MEDICARE ==
[2018-07-25 18:51] VITALS: BP 152/74
[2018-07-25] MEDS ORDERED: Acetaminophen/HYDROcodone 325-5 MG Tab PO ONE (19:32)
[2018-07-25] MEDS ORDERED: Ketorolac 60 MG/2 ML SDV IM ONE (19:32)
--- NOTE | 2018-07-25 20:23 | EDM.PDOC ---
ED HPI GENERAL MEDICAL PROBLEM - General Chief Complaint: Lower Extremity Injury/Pain Stated Complaint: RT KNEE PAIN Time Seen by Provider: 07/25/18 19:19 Source of Information: Reports: Patient, RN Notes Reviewed - History of Present Illness INITIAL COMMENTS - FREE TEXT/NARRATIVE: 57 year female comes in with right posterior knee, right upper leg discomfort. This started about 3 days ago worse yesterday and especially today. She now has constant pain even at rest posterior aspect of right knee with radiation down the right leg. The pain is worse with motion. There has been no swelling warmth or erythema of the knee or leg. No injury that she is aware of. No chest pain or difficulty breathing. History of prior DVT right leg about 3 years ago. Right Posterior Knee Pain Score (Numeric/FACES): 8 - Related Data Allergies Allergy/AdvReac Type Severity Reaction Status Date / Time erythromycin lactobionate Allergy Blisters Verified 07/25/18 18:51 [From Erythrocin] levofloxacin [From Levaquin] Allergy Other Verified 07/25/18 18:51 linezolid [From Zyvox] Allergy Cannot Verified 07/25/18 18:51 Remember meloxicam [From Mobic] Allergy Cannot Verified 07/25/18 18:51 Remember milnacipran [From Savella] Allergy Cannot Verified 07/25/18 18:51 Remember oxycodone HCl Allergy Difficulty Verified 07/25/18 18:51 [From OxyContin] Breathing pregabalin [From Lyrica] Allergy Cannot Verified 07/25/18 18:51 Remember tetracycline Allergy Blisters Verified 07/25/18 18:51 amoxicillin AdvReac Nausea and Verified 07/25/18 18:51 Vomiting eszopiclone [From Lunesta] AdvReac Delusions Verified 07/25/18 18:51 Penicillins AdvReac Blisters Verified 07/25/18 18:51 tapentadol HCl [From Nucynta] AdvReac Numbness Verified 07/25/18 18:51 Home Meds: Home Meds Hydrocodone/Acetaminophen [Hydrocodon-Acetaminophn 10-325] 1 - 2 tab PO Q6H PRN 12/09/16 [History] Temazepam 30 mg PO BEDTIME 12/09/16 [History] Aspirin 81 mg PO DAILY 01/18/17 [History] Omeprazole 20 mg PO DAILY 02/16/17 [History] Polyethylene Glycol 3350 [MiraLAX] 1 dose PO DAILY 02/16/17 [History] DULoxetine [Cymbalta] 60 mg PO DAILY 07/25/18 [History] HYDROmorphone [Dilaudid] 4 mg PO Q4H PRN #10 tab 07/25/18 [Rx] traZODone HCl [Trazodone HCl] 50 mg PO BEDTIME 07/25/18 [History] Past Medical History HEENT History: Reports: Sinusitis Other HEENT History: wears glasses, TMJ pain, R ear pain, wears glasses Cardiovascular History: Reports: Hypertension, Other (See Below) Other Cardiovascular History: pericarditis (chest pain), lower extremity edema Respiratory History: Reports: None, Bronchitis, Recurrent, Pneumonia, Recurrent , Other (See Below) Other Respiratory History: cough Gastrointestinal History: Reports: None, GERD Other Gastrointestinal History: stomach pain, nausea, epigastric pain, elevated liver enzymes, change in bowel habits, ventral hernia Genitourinary History: Reports: None, Other (See Below) Other Genitourinary History: frequency, UTIs, vaginosis Other [employer] History: Menopause Musculoskeletal History: Reports: Fibromyalgia, Other (See Below) Other Musculoskeletal History: R achilles tendon contracture, R ankle fracture, R knee pain and medical meniscus tear, R tibialis posterior tendinitis Neurological History: Reports: Headaches, Chronic, Migraines, Vertigo Psychiatric History: Reports: Anxiety, Depression Endocrine/Metabolic History: Reports: None, Obesity/BMI 30+ Hematologic History: Reports: None, Other (See Below) Other Hematologic History: antiphospholipid syndrome Immunologic History: Reports: SLE, Other (See Below) Other Immunologic History: Lupus Oncologic (Cancer) History: Reports: Cervix Dermatologic History: Reports: None, Other (See Below) Other Dermatologic History: rosacea, rash, skin neoplasm, herpes zoster - Infectious Disease History Infectious Disease History: Reports: None - Past Surgical History Head Surgeries/Procedures: Reports: None Cardiovascular Surgical History: Reports: None GI Surgical History: Reports: Colonoscopy Female Surgical History: Reports: Hysterectomy, Tubal Ligation, Other (See Below) Other Female Surgeries/Procedures: laparoscopy Musculoskeletal Surgical History: Reports: Carpal Tunnel, Other (See Below) Other Musculoskeletal Surgeries/Procedures:: right knee surgery and left ulnar nerve surgery, ORIF R ankle Social & Family History - Family History Family Medical History: Noncontributory Cardiac: Reports: MS Oncologic: Reports: Bone, Breast, Lung - Caffeine Use Caffeine Use: Reports: Coffee - Living Situation & Occupation Living situation: Reports: Occupation: Unemployed Review of Systems - Review of Systems Review Of Systems: See Below Constitutional: Denies: Chills, Fever Mouth/Throat: Reports: No Symptoms Respiratory: Denies: Shortness of Breath, Pleuritic Chest Pain Cardiovascular: Denies: Chest Pain GI/Abdominal: Denies: Abdominal Pain, Nausea, Vomiting Musculoskeletal: Reports: Leg Pain (Right posterior lower leg), Joint Pain ( Right posterior knee) Skin: Reports: No Symptoms. Denies: Erythema, Change in Color Neurological: Reports: Numbness (Right foot) ED EXAM, GENERAL - Physical Exam Exam: See Below General Appearance: Alert, Mild Distress Eye Exam: Bilateral Eye: PERRL Throat/Mouth: Normal Inspection Head: Atraumatic Neck: Supple Respiratory/Chest: No Respiratory Distress, Lungs Clear, Normal Breath Sounds Cardiovascular: Regular Rate, Rhythm GI/Abdominal: Non-Tender Extremities: Leg Pain (Tenderness right posterior proximal calf not visibly swollen warm or erythematous.), Other (There is tenderness of the posterior knee , no visible swelling of the knee, no effusion, no warmth or erythema). No: Joint Swelling Neurological: Alert, Oriented Skin Exam: Warm, Dry, Normal Color Course - Vital Signs Last Recorded V/S: Last Vital Signs Temp 98.7 F 07/25/18 18:47 Pulse 89 07/25/18 18:47 Resp 16 07/25/18 18:47 BP 152/74 H 07/25/18 18:47 Pulse Ox 97 07/25/18 18:47 - Orders/Labs/Meds Labs: Laboratory Tests 07/25/18 Range/Units 21:53 Sodium 139 (136-145) mEq/L Potassium 3.9 (3.5-5.1) mEq/L Chloride 100 (98-107) mEq/L Carbon Dioxide 27 (21-32) mEq/L Anion Gap 15.9 H (5-15) BUN 17 (7-18) mg/dL Creatinine 1.0 (0.55-1.02) mg/dL Est Cr Clr Drug Dosing 51.34 mL/min Estimated GFR (MDRD) 57 (>60) mL/min BUN/Creatinine Ratio 17.0 (14-18) Glucose 94 (74-106) mg/dL Calcium 9.1 (8.5-10.1) mg/dL Total Bilirubin 0.3 (0.2-1.0) mg/dL AST 24 (15-37) U/L ALT 30 (14-59) U/L Alkaline Phosphatase 90 (46-116) U/L Total Protein 7.5 (6.4-8.2) g/dl Albumin 4.1 (3.4-5.0) g/dl Globulin 3.4 gm/dL Albumin/Globulin Ratio 1.2 (1-2) Meds: Medications Discontinued Medications Generic Name Dose Route Start Last Admin Trade Name Freq PRN Reason Stop Dose Admin Hydrocodone Bitart/Acetaminophen 2 tab 07/25/18 19:32 07/25/18 19:38 [place] 325-5 Mg PO 07/25/18 19:33 2 tab ONETIME ONE Administration Hydromorphone HCl 1 mg 07/25/18 21:35 07/25/18 21:43 Dilaudid IM 07/25/18 21:36 1 mg ONETIME ONE Administration Ketorolac Tromethamine 60 mg 07/25/18 19:32 07/25/18 19:39 Toradol IM 07/25/18 19:33 60 mg ONETIME ONE Administration - Re-Assessments/Exams Free Text/Narrative Re-Assessment/Exam: 07/25/18 23:15 Ultrasound of the leg was negative for DVT but does show a soft tissue edematous mass posterior to the knee, etiology unclear MRI recommended. See radiology report for details. MRI of the knee has been ordered. Departure - Departure Time of Disposition: 21:38 Disposition: Home, Self-Care 01 Condition: Fair Clinical Impression: Knee pain, right Qualifiers: Chronicity: acute Qualified Code(s): M25.561 - Pain in right knee - Discharge Information Prescriptions: HYDROmorphone [Dilaudid] 4 mg PO Q4H PRN #10 tab PRN Reason: Pain Instructions: Knee Pain, Adult Referrals: Sonia Barriga MD [Primary Care Provider] - Forms: ED Department Discharge Additional Instructions: rest and elevate leg and knee as much as possible, alternate ice packs and heat , MRI R knee for further eval of R knee pain. Radiology will call you with a time to come in for that tomorrow morning. Follow up with Dr Barriga 1 to 2 days after MRI for recheck and results of MRI. You have been given hydrocodone, dilaudid and torodol IM while here in the ED. Dilaudid 4 mg q 4 to 6 hr prn severe pain. Do not take your hydrocodone when taking the dilaudid.
--- NOTE | 2018-07-25 20:58 | US ---
Right lower extremity deep venous ultrasound: Duplex and color flow imaging was obtained of the right common femoral, proximal greater saphenous, superficial femoral, popliteal, posterior tibial and peroneal veins. Left common femoral vein was also evaluated. Comparison: No prior venous ultrasound. Findings: Normal phasic flow, augmentation and compression is seen. Heterogeneous area is seen within the right popliteal fossa measuring 5.5 x 1.8 x 2.3 cm. This could represent focal area of soft tissue edema but difficult to exclude actual soft tissue mass. Impression: 1. Finding within the popliteal fossa, MRI recommended to further evaluate. MRI should include contrast images. 2. No evidence of venous thrombosis within the right lower extremity or within the left common femoral vein. Diagnostic code #9
[2018-07-25] MEDS ORDERED: HYDROmorphone 1 MG/ML Syringe IM ONE (21:35)
== END 2018-07-25 22:00 | disposition home or self-care (01) ==
LOC: JD.ED 18:37
DX: M25.561 Pain in right knee (principal); I10 Essential (primary) hypertension; Z88.8 Allergy status to other drugs, medicaments and biological substances; Z88.1 Allergy status to other antibiotic agents; Z88.0 Allergy status to penicillin; Z79.899 Other long term (current) drug therapy; Z79.82 Long term (current) use of aspirin
CPT/HCPCS: 36415; 80053; 93971; 96372; 99284; A9270; J1170; J1885

== ENCOUNTER 2018-10-19 17:39 | Emergency (ER) | payer BC, MEDICARE ==
[2018-10-19 18:00] VITALS: BP 170/90
--- NOTE | 2018-10-19 18:44 | EDM.PDOC ---
<Uri Abrams - Last Filed: 10/19/18 20:47> ED HPI GENERAL MEDICAL PROBLEM - General Chief Complaint: Chest Pain Stated Complaint: CHEST PAIN Time Seen by Provider: 10/19/18 17:48 - Related Data Allergies Allergy/AdvReac Type Severity Reaction Status Date / Time erythromycin lactobionate Allergy Blisters Verified 10/19/18 17:47 [From Erythrocin] levofloxacin [From Levaquin] Allergy Other Verified 10/19/18 17:47 linezolid [From Zyvox] Allergy Cannot Verified 10/19/18 17:47 Remember meloxicam [From Mobic] Allergy Cannot Verified 10/19/18 17:47 Remember milnacipran [From Savella] Allergy Cannot Verified 10/19/18 17:47 Remember oxycodone HCl Allergy Difficulty Verified 10/19/18 17:47 [From OxyContin] Breathing pregabalin [From Lyrica] Allergy Cannot Verified 10/19/18 17:47 Remember tetracycline Allergy Blisters Verified 10/19/18 17:47 amoxicillin AdvReac Nausea and Verified 10/19/18 17:47 Vomiting eszopiclone [From Lunesta] AdvReac Delusions Verified 10/19/18 17:47 Penicillins AdvReac Blisters Verified 10/19/18 17:47 tapentadol HCl [From Nucynta] AdvReac Numbness Verified 10/19/18 17:47 Home Meds: Home Meds Hydrocodone/Acetaminophen [Hydrocodon-Acetaminophn 10-325] 1 - 2 tab PO Q6H PRN 12/09/16 [History] Temazepam 30 mg PO BEDTIME 12/09/16 [History] Aspirin 81 mg PO DAILY 01/18/17 [History] Polyethylene Glycol 3350 [MiraLAX] 1 dose PO DAILY 02/16/17 [History] DULoxetine [Cymbalta] 60 mg PO DAILY 07/25/18 [History] traZODone HCl [Trazodone HCl] 50 mg PO BEDTIME 07/25/18 [History] Doxycycline [Vibramycin] 100 mg PO BID #24 cap 10/19/18 [Rx] Methylcellulose [Citrucel] 500 mg PO DAILY #120 tab 10/19/18 [Rx] Course - Vital Signs Last Recorded V/S: Last Vital Signs Temp 37.1 C 10/19/18 17:58 Pulse 90 10/19/18 17:58 Resp 18 10/19/18 17:58 BP 170/90 H 10/19/18 17:58 Pulse Ox 99 10/19/18 17:58 Orthostatic Blood Pressure [ 172/82 Standing] Orthostatic Blood Pressure [ 162/86 Sitting] Orthostatic Blood Pressure [ 151/86 Supine] - Orders/Labs/Meds Labs: Laboratory Tests 10/19/18 10/19/18 10/19/18 Range/Units 18:18 18:30 18:30 WBC 10.43 H (3.98-10.04) K/mm3 RBC 5.14 (3.98-5.22) M/mm3 Hgb 14.2 (11.2-15.7) gm/L Hct 42.7 (34.1-44.9) % MCV 83.1 (79.4-94.8) fl MCH 27.6 (25.6-32.2) pg MCHC 33.3 (32.2-35.5) g/dl RDW Std Deviation 40.3 (36.4-46.3) fL Plt Count 269 (182-369) K/mm3 MPV 10.9 (9.4-12.3) fl Neutrophils % (Manual) 57 (40-60) % Band Neutrophils % 0 (0-10) % Lymphocytes % (Manual) 37 (20-40) % Atypical Lymphs % 0 % Monocytes % (Manual) 5 (2-10) % Eosinophils % (Manual) 1 (0.7-5.8) % Basophils % (Manual) 0 L (0.1-1.2) Platelet Estimate Adequate Plt Morphology Comment Normal RBC Morph Comment Normal ESR (0-20) mm/hr D-Dimer, Quantitative 0.42 (0.19-0.50) mg/L Puncture Site Lt radial ABG pH 7.44 (7.35-7.45) ABG pCO2 33.4 L (35.0-45.0) mmHg ABG pO2 86.0 (80.0-100.0) mmHg ABG HCO3 22.5 (22.0-26.0) meq/L ABG O2 Saturation 97.9 H (96.0-97.0) % ABG Base Excess -0.4 (-2-2.0) Rj Test Positive O2 Delivery Device Room air FiO2 0.00 L (21.00-100.00) % Sodium (136-145) mEq/L Potassium (3.5-5.1) mEq/L Chloride (98-107) mEq/L Carbon Dioxide (21-32) mEq/L Anion Gap (5-15) BUN (7-18) mg/dL Creatinine (0.55-1.02) mg/dL Est Cr Clr Drug Dosing mL/min Estimated GFR (MDRD) (>60) mL/min BUN/Creatinine Ratio (14-18) Glucose (74-106) mg/dL Calcium (8.5-10.1) mg/dL Magnesium (1.8-2.4) mg/dl Total Bilirubin (0.2-1.0) mg/dL AST (15-37) U/L ALT (14-59) U/L Alkaline Phosphatase (46-116) U/L Troponin I (0.00-0.056) ng/mL C-Reactive Protein (<1.0) mg/dL Total Protein (6.4-8.2) g/dl Albumin (3.4-5.0) g/dl Globulin gm/dL Albumin/Globulin Ratio (1-2) Lipase (73-393) U/L TSH 3rd Generation (0.358-3.74) uIU/mL Urine Color (Yellow) Urine Appearance (Clear) Urine pH (5.0-8.0) Ur Specific [place] (1.005-1.030) Urine Protein (Negative) Urine Glucose (UA) (Negative) Urine Ketones (Negative) Urine Occult Blood (Negative) Urine Nitrite (Negative) Urine Bilirubin (Negative) Urine Urobilinogen (0.2-1.0) Ur Leukocyte Esterase (Negative) Urine RBC (0-5) /hpf Urine WBC (0-5) /hpf Ur Squamous Epith Cells (0-5) /hpf Urine Bacteria (FEW) /hpf Urine Mucus (FEW) /hpf Urine Opiates Screen (SELNJA=454) Ur Buprenorphine Scrn (CUTOFF=10) Ur Oxycodone Screen (OBZ5UX=023) Urine Methadone Screen (EWNERC=638) Ur Propoxyphene Screen (KPCHIC=701) Ur Barbiturates Screen (LYXCSI=485) Ur Tricyclics Screen (ZPQCVI=511) Ur Phencyclidine Scrn (CUTOFF=25) Ur Amphetamine Screen (QNPOFF=569) U Methamphetamines Scrn (IXXOSG=483) U Benzodiazepines Scrn (MXDNPB=046) U Cocaine Metab Screen (JXYHTG=581) U Marijuana (THC) Screen (CUTOFF=50) 10/19/18 10/19/18 10/19/18 Range/Units 18:30 18:30 18:45 WBC (3.98-10.04) K/mm3 RBC (3.98-5.22) M/mm3 Hgb (11.2-15.7) gm/L Hct (34.1-44.9) % MCV (79.4-94.8) fl MCH (25.6-32.2) pg MCHC (32.2-35.5) g/dl RDW Std Deviation (36.4-46.3) fL Plt Count (182-369) K/mm3 MPV (9.4-12.3) fl Neutrophils % (Manual) (40-60) % Band Neutrophils % (0-10) % Lymphocytes % (Manual) (20-40) % Atypical Lymphs % % Monocytes % (Manual) (2-10) % Eosinophils % (Manual) (0.7-5.8) % Basophils % (Manual) (0.1-1.2) Platelet Estimate Plt Morphology Comment RBC Morph Comment ESR 31 H (0-20) mm/hr D-Dimer, Quantitative (0.19-0.50) mg/L Puncture Site ABG pH (7.35-7.45) ABG pCO2 (35.0-45.0) mmHg ABG pO2 (80.0-100.0) mmHg ABG HCO3 (22.0-26.0) meq/L ABG O2 Saturation (96.0-97.0) % ABG Base Excess (-2-2.0) Rj Test O2 Delivery Device FiO2 (21.00-100.00) % Sodium 136 (136-145) mEq/L Potassium 4.0 (3.5-5.1) mEq/L Chloride 102 (98-107) mEq/L Carbon Dioxide 25 (21-32) mEq/L Anion Gap 13.0 (5-15) BUN 19 H (7-18) mg/dL Creatinine 0.9 (0.55-1.02) mg/dL Est Cr Clr Drug Dosing 59.55 mL/min Estimated GFR (MDRD) > 60 (>60) mL/min BUN/Creatinine Ratio 21.1 H (14-18) Glucose 99 (74-106) mg/dL Calcium 9.8 (8.5-10.1) mg/dL Magnesium 1.9 (1.8-2.4) mg/dl Total Bilirubin 0.2 (0.2-1.0) mg/dL AST 18 (15-37) U/L ALT 27 (14-59) U/L Alkaline Phosphatase 106 (46-116) U/L Troponin I < 0.017 (0.00-0.056) ng/mL C-Reactive Protein 4.3 H* (<1.0) mg/dL Total Protein 7.5 (6.4-8.2) g/dl Albumin 3.7 (3.4-5.0) g/dl Globulin 3.8 gm/dL Albumin/Globulin Ratio 1.0 (1-2) Lipase 115 (73-393) U/L TSH 3rd Generation 0.835 (0.358-3.74) uIU/mL Urine Color (Yellow) Urine Appearance (Clear) Urine pH (5.0-8.0) Ur Specific [place] (1.005-1.030) Urine Protein (Negative) Urine Glucose (UA) (Negative) Urine Ketones (Negative) Urine Occult Blood (Negative) Urine Nitrite (Negative) Urine Bilirubin (Negative) Urine Urobilinogen (0.2-1.0) Ur Leukocyte Esterase (Negative) Urine RBC (0-5) /hpf Urine WBC (0-5) /hpf Ur Squamous Epith Cells (0-5) /hpf Urine Bacteria (FEW) /hpf Urine Mucus (FEW) /hpf Urine Opiates Screen Presumptive positive H (OXNJTA=278) Ur Buprenorphine Scrn Negative (CUTOFF=10) Ur Oxycodone Screen Negative (PYA9JR=335) Urine Methadone Screen Negative (UBOVPI=982) Ur Propoxyphene Screen Negative (BMFYWF=298) Ur Barbiturates Screen Negative (IKPVRH=199) Ur Tricyclics Screen Negative (JWMLSQ=377) Ur Phencyclidine Scrn Negative (CUTOFF=25) Ur Amphetamine Screen Negative (FQEQPV=021) U Methamphetamines Scrn Negative (GRUMMY=363) U Benzodiazepines Scrn Presumptive positive H (TLMKTK=037) U Cocaine Metab Screen Negative (ZIIELH=479) U Marijuana (THC) Screen Presumptive positive H (CUTOFF=50) 10/19/18 Range/Units 18:45 WBC (3.98-10.04) K/mm3 RBC (3.98-5.22) M/mm3 Hgb (11.2-15.7) gm/L Hct (34.1-44.9) % MCV (79.4-94.8) fl MCH (25.6-32.2) pg MCHC (32.2-35.5) g/dl RDW Std Deviation (36.4-46.3) fL Plt Count (182-369) K/mm3 MPV (9.4-12.3) fl Neutrophils % (Manual) (40-60) % Band Neutrophils % (0-10) % Lymphocytes % (Manual) (20-40) % Atypical Lymphs % % Monocytes % (Manual) (2-10) % Eosinophils % (Manual) (0.7-5.8) % Basophils % (Manual) (0.1-1.2) Platelet Estimate Plt Morphology Comment RBC Morph Comment ESR (0-20) mm/hr D-Dimer, Quantitative (0.19-0.50) mg/L Puncture Site ABG pH (7.35-7.45) ABG pCO2 (35.0-45.0) mmHg ABG pO2 (80.0-100.0) mmHg ABG HCO3 (22.0-26.0) meq/L ABG O2 Saturation (96.0-97.0) % ABG Base Excess (-2-2.0) Rj Test O2 Delivery Device FiO2 (21.00-100.00) % Sodium (136-145) mEq/L Potassium (3.5-5.1) mEq/L Chloride (98-107) mEq/L Carbon Dioxide (21-32) mEq/L Anion Gap (5-15) BUN (7-18) mg/dL Creatinine (0.55-1.02) mg/dL Est Cr Clr Drug Dosing mL/min Estimated GFR (MDRD) (>60) mL/min BUN/Creatinine Ratio (14-18) Glucose (74-106) mg/dL Calcium (8.5-10.1) mg/dL Magnesium (1.8-2.4) mg/dl Total Bilirubin (0.2-1.0) mg/dL AST (15-37) U/L ALT (14-59) U/L Alkaline Phosphatase (46-116) U/L Troponin I (0.00-0.056) ng/mL C-Reactive Protein (<1.0) mg/dL Total Protein (6.4-8.2) g/dl Albumin (3.4-5.0) g/dl Globulin gm/dL Albumin/Globulin Ratio (1-2) Lipase (73-393) U/L TSH 3rd Generation (0.358-3.74) uIU/mL Urine Color Yellow (Yellow) Urine Appearance Clear (Clear) Urine pH 5.5 (5.0-8.0) Ur Specific [place] > or = 1.030 (1.005-1.030) Urine Protein Trace H (Negative) Urine Glucose (UA) Negative (Negative) Urine Ketones Negative (Negative) Urine Occult Blood Negative (Negative) Urine Nitrite Negative (Negative) Urine Bilirubin Negative (Negative) Urine Urobilinogen 0.2 (0.2-1.0) Ur Leukocyte Esterase Negative (Negative) Urine RBC 0-5 (0-5) /hpf Urine WBC 0-5 (0-5) /hpf Ur Squamous Epith Cells 0-5 (0-5) /hpf Urine Bacteria Few H (FEW) /hpf Urine Mucus Few (FEW) /hpf Urine Opiates Screen (TQCLCO=640) Ur Buprenorphine Scrn (CUTOFF=10) Ur Oxycodone Screen (QYE2ND=059) Urine Methadone Screen (VOIEHJ=883) Ur Propoxyphene Screen (JBAPOU=168) Ur Barbiturates Screen (UCKNCO=994) Ur Tricyclics Screen (UQOODG=684) Ur Phencyclidine Scrn (CUTOFF=25) Ur Amphetamine Screen (FTFTNZ=365) U Methamphetamines Scrn (DNPIIN=352) U Benzodiazepines Scrn (FXTTXG=698) U Cocaine Metab Screen (LTWCEO=358) U Marijuana (THC) Screen (CUTOFF=50) - Re-Assessments/Exams Free Text/Narrative Re-Assessment/Exam: 10/19/18 20:[address] Bradley at [facility] of shift. Labs are back revealing a normal white count at 10.43. Differential reveals 57% neutrophils no bands cells reported. Hemoglobin is 14.2 with hematocrit of 42.7. MCV is normal at 83.1. Platelet count is 269,000. Sedimentation rate is 31. D-dimer 0.42. ABGs reveal a pH of 7.44 PCO2 is 33.4 --mildly decreased. PaO2 was 86 with sats of 97.9% on room air.. Sodium was 136 with a potassium of 4.0 chloride 102 with a bicarbonate 25. And a gap is 13.0. The one is 19 with a creatinine of 0.9. GFR is greater than 60. Glucose is 99. Calcium is 9.8. Magnesium normal at 1.9. Liver function normal. Troponin I is less than 0.017. C -reactive protein is 4.3. TSH is 0.835. Total protein 7.5 with an albumin fraction of 3.7. Serum lipase 1:15. Urine drug screen is presumptive positive for opiates and benzodiazepines and marijuana. I've examined the patient thoroughly. The only thing I can think of is that she may have a sinusitis as her left naris is completely occluded with facial tenderness particularly in the maxillary sinuses frontal sinuses be causing some of her jaw pain no definite TMJ abnormality is identified. He does have a irritable bowel syndrome pattern with diarrhea constipation. She's not had a bowel movement now for 5 days. She breaks out in cold sweats intermittently enough to soak a pillowcase. Reason for this is unclear. She does still seem to have some mild reactive rheumatoid arthritis involving mostly in CP joints of her hands and her wrists and right elbow. Knees and ankles are okay. I reviewed the labs thoroughly. I added a urinalysis. Otherwise I have no other explanations for her current symptom complex. A try a trial of Doxiycycline 100 mg twice daily for 14 days for sinus infection. 10/19/18 20:47 Urinalysis is reported to be normal. I therefore going to place her on a trial of doxycycline 100 mg twice daily for 12 days on the suction that she has an occult sinusitis causing current symptomatology. She is to follow-up with her primary care provider in 12 days time to make sure that she is better. The other thing I'm going to have her rock picker his Citrucel taking it daily to try and thicken her stools and prevent constipation. Departure - Departure Time of Disposition: 20:58 Disposition: Home, Self-Care 01 Condition: Fair Clinical Impression: Diaphoresis, Chills without fever, Irritable bowel syndrome with both constipation and diarrhea Sinusitis Qualifiers: Sinusitis location: unspecified location Chronicity: subacute Qualified Code(s) : J01.90 - Acute sinusitis, unspecified - Discharge Information *PRESCRIPTION DRUG MONITORING PROGRAM REVIEWED*: Not Applicable *COPY OF PRESCRIPTION DRUG MONITORING REPORT IN PATIENT RENA: Not Applicable Prescriptions: Doxycycline [Vibramycin] 100 mg PO BID #24 cap Methylcellulose [Citrucel] 500 mg PO DAILY #120 tab Instructions: Irritable Bowel Syndrome, Adult Referrals: Uzma Mckoy, MANAGER INTERVENTIONAL [Primary Care Provider] - Forms: ED Department Discharge Additional Instructions: Evaluation in the emergency room today in regards to recurrent bouts of cold sweats and chills to the bone for the last 10 days or more. No development of fever. Chills and diaphoretic sweat spells can come on at any time of the day and produce significant diaphoresis. Complete investigation carried out by Dr. Bradley revealed no abnormalities of of any of your lab tests including normal thyroid function. Urinalysis proved to be negative for infection chest x-ray was normal as well. I suspect that there is a chronic sinus infection that may or may not be the cause of your current symptoms. It is my suggestion that a trial of doxycycline be used 1 tablet twice daily for the next 12 days to see if this makes a difference in your symptomatology. The other thing I would suggest because of the chronic diarrhea versus constipation or irritable bowel syndrome is to try Citrucel caplets 500 mg 2 tablets usually twice daily morning and bedtime for the next month to see if this makes a difference in your bowel function. Follow-up with your personal care provider in 2 weeks time if you're still having current symptom complex. There is a small chance that stopping trazodone a week ago is causing mild withdrawal symptoms but these should pass over the next week if this is the case. <Davide Bradley - Last Filed: 10/23/18 17:40> ED HPI GENERAL MEDICAL PROBLEM - General Source of Information: Reports: Patient, Family (Son), Old Records (ED 2016. EEG report 03/05/2018.), RN Notes Reviewed History Limitations: Reports: No Limitations - History of Present Illness INITIAL COMMENTS - FREE TEXT/NARRATIVE: The patient states that she has been experiencing a stabbing pain felt under her left breast on and off for the past 10 days. The pain comes on suddenly, and last a few minutes. She has also had left upper extremity pain for the past 10 days, extending all the way to her hand, that also comes and goes, but unrelated to her chest pain. She reports dizziness, a combination of both lightheadedness and a "sliding" sensation, also for the last 10 days. She reports a mild headache, bilateral jaw pain, and tongue pain, that have been persistent over the past 10 days. She has had nausea, but no emesis. She reports feeling very anxious. She reports having cold sweats. No bowel movement for the past 5 days. She denies urinary symptoms or recent fever. No cough or shortness of breath. The patient answers "I don't remember" to many of my questions, but states that she had similar symptoms, that improved with prednisone, about one year ago. Review of prior medical records finds that the patient had a similar presentation with chest pain to this ED on 07/03/2017. Her workup was unremarkable, and she was referred to her PCP for further evaluation. The medical record indicates that the patient has a history of depression, PTSD , fibromyalgia, and pseudoseizures. She takes Cymbalta for her anxiety, but is also prescribed [place], 10/325, 5 tablets per day, per her pain extrusion die repair manager in [place], for her fibromyalgia. Review of the [place] PMPi finds that the patient's most recent prescription for 140 tablets of [place] was written on 09/29/2018, and filled on 10/05/2018. An EEG was negative for epileptiform activity on 03/05/2018, although the patient told me that she has a history of genuine seizures, untreated. The patient states that she also has a history of both SLE and rheumatoid arthritis, both untreated. The medical record indicates that the patient has a history of chronic headaches. The patient reports a history of GERD, but that she stopped taking Prilosec about a year ago, when she heard something negative about it on the news. The patient's PCP is Uzma Mcoky. Her pain extrusion die repair manager is MCKENNA Dozier, in [place]. Treatments NURSE SANE: Reports: Other Medication(s) Chest Pain Score (Numeric/FACES): 2 Past Medical History HEENT History: Reports: Impaired Vision Cardiovascular History: Reports: Blood Clots/VTE/DVT (DVT 2 antiphospholipid syndrome), Hypertension Gastrointestinal History: Reports: GERD (untreated) Musculoskeletal History: Reports: Fracture (right tibia, right ankle), RA, Other (See Below) (Right Achilles tendon contracture) Neurological History: Reports: Headaches, Chronic Psychiatric History: Reports: Anxiety, Depression, PTSD, Other (See Below) ( Fibromyalgia. Pseudoseizures.) Endocrine/Metabolic History: Reports: Obesity/BMI 30+ Hematologic History: Reports: Other (See Below) (Antiphospholipid syndrome) Immunologic History: Reports: SLE Oncologic (Cancer) History: Reports: Cervix - Past Surgical History GI Surgical History: Reports: EGD (x 1) Female Surgical History: Reports: Hysterectomy (partial), Oophorectomy ( unilateral), Tubal Ligation Neurological Surgical History: Reports: Other (See Below) (Left ulnar nerve transposition) Musculoskeletal Surgical History: Reports: Arthroscopic Knee (right, for torn meniscus), Carpal Tunnel (left only), ORIF (right tibia) Social & Family History - Family History Family Medical History: Noncontributory Cardiac: Reports: [place] Respiratory: Reports: None GI: Reports: None : Reports: None OBGYN: Reports: None Musculoskeletal: Reports: None Neurological: Reports: None Psychiatric: Reports: None Endocrine/Metabolic: Reports: None Hematologic: Reports: None Immunologic: Reports: None Oncologic: Reports: Bone, Breast, Lung - Tobacco Use Smoking Status *Q: Current Every Day Smoker Years of Tobacco use: 16 Packs/Tins Daily: 0.3 Packs/Tins Daily Comment: Down from 1 ppd - Caffeine Use Caffeine Use: Reports: Coffee, Soda - Alcohol Use Alcohol Use History: No - Recreational Drug Use Recreational Drug Use: Yes Drug Use in Last 12 Months: No Recreational Drug Type: Reports: Marijuana/Hashish (last smoked 2018) - Living Situation & Occupation Living situation: Reports: (), Alone Occupation: Unemployed ED ROS GENERAL - Review of Systems Review Of Systems: ROS reveals no pertinent complaints other than HPI. ED EXAM, GENERAL - Physical Exam Exam: See Below Exam Limited By: No Limitations General Appearance: Alert, WD/WN, No Apparent Distress, Anxious Eye Exam: Bilateral Eye: EOMI, Normal Inspection Ears: Normal External Exam, Hearing Grossly Normal Nose: Normal Inspection Throat/Mouth: Normal Inspection, Normal Lips, Normal Voice, No Airway Compromise Head: Atraumatic, Normocephalic Neck: Normal Inspection, Full Range of Motion Respiratory/Chest: No Respiratory Distress, Lungs Clear, Normal Breath Sounds, No Accessory Muscle Use Cardiovascular: Normal Peripheral Pulses, Regular Rate, Rhythm, No Gallop, No JVD, No Murmur, No Rub Peripheral Pulses: 4+: Radial (L), Radial (R) GI/Abdominal: Normal Bowel Sounds, Soft, Non-Tender, No Organomegaly, No Distention, No Abnormal Bruit, No Mass, Other (Obese) (Female) Exam: Deferred Rectal (Female) Exam: Deferred Back Exam: Normal Inspection, Full Range of Motion, NT Extremities: Normal Inspection, Normal Range of Motion, Normal Capillary Refill Neurological: Alert, Oriented, Normal Cognition, No Motor/Sensory Deficits Psychiatric: Anxious Skin Exam: Warm, Intact, No Rash, Diaphoretic, Other (Face flushed) EKG INTERPRETATION EKG Date: 10/19/18 Time: 18:22 Rhythm: NSR Rate (Beats/Min): 72 [place]: Normal P-Wave: Present QRS: Normal ST-T: Normal QT: Normal Comparison: No Change (07/03/2017) Course - Orders/Labs/Meds Labs: Laboratory Tests 10/19/18 10/19/18 10/19/18 Range/Units 18:18 18:30 18:30 WBC 10.43 H (3.98-10.04) K/mm3 RBC 5.14 (3.98-5.22) M/mm3 Hgb 14.2 (11.2-15.7) gm/L Hct 42.7 (34.1-44.9) % MCV 83.1 (79.4-94.8) fl MCH 27.6 (25.6-32.2) pg MCHC 33.3 (32.2-35.5) g/dl RDW Std Deviation 40.3 (36.4-46.3) fL Plt Count 269 (182-369) K/mm3 MPV 10.9 (9.4-12.3) fl Neutrophils % (Manual) 57 (40-60) % Band Neutrophils % 0 (0-10) % Lymphocytes % (Manual) 37 (20-40) % Atypical Lymphs % 0 % Monocytes % (Manual) 5 (2-10) % Eosinophils % (Manual) 1 (0.7-5.8) % Basophils % (Manual) 0 L (0.1-1.2) Platelet Estimate Adequate Plt Morphology Comment Normal RBC Morph Comment Normal ESR (0-20) mm/hr D-Dimer, Quantitative 0.42 (0.19-0.50) mg/L Puncture Site Lt radial ABG pH 7.44 (7.35-7.45) ABG pCO2 33.4 L (35.0-45.0) mmHg ABG pO2 86.0 (80.0-100.0) mmHg ABG HCO3 22.5 (22.0-26.0) meq/L ABG O2 Saturation 97.9 H (96.0-97.0) % ABG Base Excess -0.4 (-2-2.0) Rj Test Positive O2 Delivery Device Room air FiO2 0.00 L (21.00-100.00) % Sodium (136-145) mEq/L Potassium (3.5-5.1) mEq/L Chloride (98-107) mEq/L Carbon Dioxide (21-32) mEq/L Anion Gap (5-15) BUN (7-18) mg/dL Creatinine (0.55-1.02) mg/dL Est Cr Clr Drug Dosing mL/min Estimated GFR (MDRD) (>60) mL/min BUN/Creatinine Ratio (14-18) Glucose (74-106) mg/dL Calcium (8.5-10.1) mg/dL Magnesium (1.8-2.4) mg/dl Total Bilirubin (0.2-1.0) mg/dL AST (15-37) U/L ALT (14-59) U/L Alkaline Phosphatase (46-116) U/L Troponin I (0.00-0.056) ng/mL C-Reactive Protein (<1.0) mg/dL Total Protein (6.4-8.2) g/dl Albumin (3.4-5.0) g/dl Globulin gm/dL Albumin/Globulin Ratio (1-2) Lipase (73-393) U/L TSH 3rd Generation (0.358-3.74) uIU/mL Urine Color (Yellow) Urine Appearance (Clear) Urine pH (5.0-8.0) Ur Specific [place] (1.005-1.030) Urine Protein (Negative) Urine Glucose (UA) (Negative) Urine Ketones (Negative) Urine Occult Blood (Negative) Urine Nitrite (Negative) Urine Bilirubin (Negative) Urine Urobilinogen (0.2-1.0) Ur Leukocyte Esterase (Negative) Urine RBC (0-5) /hpf Urine WBC (0-5) /hpf Ur Squamous Epith Cells (0-5) /hpf Urine Bacteria (FEW) /hpf Urine Mucus (FEW) /hpf Urine Opiates Screen (VVMDBQ=260) Ur Buprenorphine Scrn (CUTOFF=10) Ur Oxycodone Screen (UKX7KA=727) Urine Methadone Screen (TFOXXK=764) Ur Propoxyphene Screen (YUCJJY=467) Ur Barbiturates Screen (JQJFZC=360) Ur Tricyclics Screen (FSZLRR=330) Ur Phencyclidine Scrn (CUTOFF=25) Ur Amphetamine Screen (KMGLNZ=365) U Methamphetamines Scrn (CDSFLV=590) U Benzodiazepines Scrn (BPRPHD=339) U Cocaine Metab Screen (JCRSRR=698) U Marijuana (THC) Screen (CUTOFF=50) 10/19/18 10/19/18 10/19/18 Range/Units 18:30 18:30 18:45 WBC (3.98-10.04) K/mm3 RBC (3.98-5.22) M/mm3 Hgb (11.2-15.7) gm/L Hct (34.1-44.9) % MCV (79.4-94.8) fl MCH (25.6-32.2) pg MCHC (32.2-35.5) g/dl RDW Std Deviation (36.4-46.3) fL Plt Count (182-369) K/mm3 MPV (9.4-12.3) fl Neutrophils % (Manual) (40-60) % Band Neutrophils % (0-10) % Lymphocytes % (Manual) (20-40) % Atypical Lymphs % % Monocytes % (Manual) (2-10) % Eosinophils % (Manual) (0.7-5.8) % Basophils % (Manual) (0.1-1.2) Platelet Estimate Plt Morphology Comment RBC Morph Comment ESR 31 H (0-20) mm/hr D-Dimer, Quantitative (0.19-0.50) mg/L Puncture Site ABG pH (7.35-7.45) ABG pCO2 (35.0-45.0) mmHg ABG pO2 (80.0-100.0) mmHg ABG HCO3 (22.0-26.0) meq/L ABG O2 Saturation (96.0-97.0) % ABG Base Excess (-2-2.0) Rj Test O2 Delivery Device FiO2 (21.00-100.00) % Sodium 136 (136-145) mEq/L Potassium 4.0 (3.5-5.1) mEq/L Chloride 102 (98-107) mEq/L Carbon Dioxide 25 (21-32) mEq/L Anion Gap 13.0 (5-15) BUN 19 H (7-18) mg/dL Creatinine 0.9 (0.55-1.02) mg/dL Est Cr Clr Drug Dosing 59.55 mL/min Estimated GFR (MDRD) > 60 (>60) mL/min BUN/Creatinine Ratio 21.1 H (14-18) Glucose 99 (74-106) mg/dL Calcium 9.8 (8.5-10.1) mg/dL Magnesium 1.9 (1.8-2.4) mg/dl Total Bilirubin 0.2 (0.2-1.0) mg/dL AST 18 (15-37) U/L ALT 27 (14-59) U/L Alkaline Phosphatase 106 (46-116) U/L Troponin I < 0.017 (0.00-0.056) ng/mL C-Reactive Protein 4.3 H* (<1.0) mg/dL Total Protein 7.5 (6.4-8.2) g/dl Albumin 3.7 (3.4-5.0) g/dl Globulin 3.8 gm/dL Albumin/Globulin Ratio 1.0 (1-2) Lipase 115 (73-393) U/L TSH 3rd Generation 0.835 (0.358-3.74) uIU/mL Urine Color (Yellow) Urine Appearance (Clear) Urine pH (5.0-8.0) Ur Specific [place] (1.005-1.030) Urine Protein (Negative) Urine Glucose (UA) (Negative) Urine Ketones (Negative) Urine Occult Blood (Negative) Urine Nitrite (Negative) Urine Bilirubin (Negative) Urine Urobilinogen (0.2-1.0) Ur Leukocyte Esterase (Negative) Urine RBC (0-5) /hpf Urine WBC (0-5) /hpf Ur Squamous Epith Cells (0-5) /hpf Urine Bacteria (FEW) /hpf Urine Mucus (FEW) /hpf Urine Opiates Screen Presumptive positive H (GETMHN=670) Ur Buprenorphine Scrn Negative (CUTOFF=10) Ur Oxycodone Screen Negative (BYI4IM=924) Urine Methadone Screen Negative (VAPKVZ=781) Ur Propoxyphene Screen Negative (SLAJUE=067) Ur Barbiturates Screen Negative (GYWLKR=396) Ur Tricyclics Screen Negative (RDADFF=649) Ur Phencyclidine Scrn Negative (CUTOFF=25) Ur Amphetamine Screen Negative (FZJRIU=069) U Methamphetamines Scrn Negative (LRSOKR=720) U Benzodiazepines Scrn Presumptive positive H (BVKTTB=300) U Cocaine Metab Screen Negative (ALVWYZ=397) U Marijuana (THC) Screen Presumptive positive H (CUTOFF=50) 10/19/18 Range/Units 18:45 WBC (3.98-10.04) K/mm3 RBC (3.98-5.22) M/mm3 Hgb (11.2-15.7) gm/L Hct (34.1-44.9) % MCV (79.4-94.8) fl MCH (25.6-32.2) pg MCHC (32.2-35.5) g/dl RDW Std Deviation (36.4-46.3) fL Plt Count (182-369) K/mm3 MPV (9.4-12.3) fl Neutrophils % (Manual) (40-60) % Band Neutrophils % (0-10) % Lymphocytes % (Manual) (20-40) % Atypical Lymphs % % Monocytes % (Manual) (2-10) % Eosinophils % (Manual) (0.7-5.8) % Basophils % (Manual) (0.1-1.2) Platelet Estimate Plt Morphology Comment RBC Morph Comment ESR (0-20) mm/hr D-Dimer, Quantitative (0.19-0.50) mg/L Puncture Site ABG pH (7.35-7.45) ABG pCO2 (35.0-45.0) mmHg ABG pO2 (80.0-100.0) mmHg ABG HCO3 (22.0-26.0) meq/L ABG O2 Saturation (96.0-97.0) % ABG Base Excess (-2-2.0) Rj Test O2 Delivery Device FiO2 (21.00-100.00) % Sodium (136-145) mEq/L Potassium (3.5-5.1) mEq/L Chloride (98-107) mEq/L Carbon Dioxide (21-32) mEq/L Anion Gap (5-15) BUN (7-18) mg/dL Creatinine (0.55-1.02) mg/dL Est Cr Clr Drug Dosing mL/min Estimated GFR (MDRD) (>60) mL/min BUN/Creatinine Ratio (14-18) Glucose (74-106) mg/dL Calcium (8.5-10.1) mg/dL Magnesium (1.8-2.4) mg/dl Total Bilirubin (0.2-1.0) mg/dL AST (15-37) U/L ALT (14-59) U/L Alkaline Phosphatase (46-116) U/L Troponin I (0.00-0.056) ng/mL C-Reactive Protein (<1.0) mg/dL Total Protein (6.4-8.2) g/dl Albumin (3.4-5.0) g/dl Globulin gm/dL Albumin/Globulin Ratio (1-2) Lipase (73-393) U/L TSH 3rd Generation (0.358-3.74) uIU/mL Urine Color Yellow (Yellow) Urine Appearance Clear (Clear) Urine pH 5.5 (5.0-8.0) Ur Specific [place] > or = 1.030 (1.005-1.030) Urine Protein Trace H (Negative) Urine Glucose (UA) Negative (Negative) Urine Ketones Negative (Negative) Urine Occult Blood Negative (Negative) Urine Nitrite Negative (Negative) Urine Bilirubin Negative (Negative) Urine Urobilinogen 0.2 (0.2-1.0) Ur Leukocyte Esterase Negative (Negative) Urine RBC 0-5 (0-5) /hpf Urine WBC 0-5 (0-5) /hpf Ur Squamous Epith Cells 0-5 (0-5) /hpf Urine Bacteria Few H (FEW) /hpf Urine Mucus Few (FEW) /hpf Urine Opiates Screen (XQFFGM=012) Ur Buprenorphine Scrn (CUTOFF=10) Ur Oxycodone Screen (EAI6HU=331) Urine Methadone Screen (YLMIKD=544) Ur Propoxyphene Screen (TWXGPL=358) Ur Barbiturates Screen (ZFLBFF=488) Ur Tricyclics Screen (IJBQAU=256) Ur Phencyclidine Scrn (CUTOFF=25) Ur Amphetamine Screen (LMVEWN=129) U Methamphetamines Scrn (HOWJKA=157) U Benzodiazepines Scrn (UIWEPU=839) U Cocaine Metab Screen (TFPJSD=985) U Marijuana (THC) Screen (CUTOFF=50) - Re-Assessments/Exams Free Text/Narrative Re-Assessment/Exam: 10/19/18 18:44 The patient's ABG represents a chronic respiratory alkalosis with normal oxygenation. 10/19/18 18:46 2-view chest radiograph appears to be grossly normal. The cardiac silhouette is within normal limits. No pulmonary vascular congestion. No pleural effusions. No focal infiltrate. No pneumothorax. A right lower lobe sub-centimeter pulmonary nodule is incidentally noted. Formal read per the Radiologist pending. 10/19/18 18:48 The patient is not orthostatic. 10/19/18 19:[address] Abrams, and care of the patient turned over to him at this time, for change of shift.
--- NOTE | 2018-10-20 06:22 | CR ---
Chest: Two views of the chest were obtained. Comparison: Prior chest x-ray of 02/03/18. Heart size and mediastinum are normal. Lungs are clear. Bony structures are unremarkable for patient's age. Impression: 1. Nothing acute is appreciated on two-view chest x-ray. Diagnostic code #1
== END 2018-10-19 21:10 | disposition home or self-care (01) ==
LOC: JD.ED 17:39
DX: K58.2 Mixed irritable bowel syndrome (principal); J01.90 Acute sinusitis, unspecified; R61 Generalized hyperhidrosis; R50.9 Fever, unspecified; F17.210 Nicotine dependence, cigarettes, uncomplicated; F41.9 Anxiety disorder, unspecified; F32.9 Major depressive disorder, single episode, unspecified; K21.9 Gastro-esophageal reflux disease without esophagitis; Z88.1 Allergy status to other antibiotic agents; Z88.0 Allergy status to penicillin; Z79.82 Long term (current) use of aspirin; Z79.899 Other long term (current) drug therapy; Z88.8 Allergy status to other drugs, medicaments and biological substances
CPT/HCPCS: 36415; 36600; 71046; 71046-26; 80053; 80306; 81001; 82803; 83690; 83735; 84443; 84484; 85007; 85027; 85379; 85652; 86140; 93005; 99284; 99285-25

== ENCOUNTER 2019-05-04 15:18 | Emergency (ER) | payer MEDICARE, OTHER ==
[2019-05-04 15:33] VITALS: BP 188/103; PULSE 97
--- NOTE | 2019-05-04 16:32 | EDM.PDOC ---
<Ana Andrade - Last Filed: 05/04/19 16:27> ED HPI GENERAL MEDICAL PROBLEM - General Chief Complaint: Abdominal Pain Stated Complaint: R SIDE ABDOMINAL PAIN Time Seen by Provider: 05/04/19 16:35 Source of Information: Reports: Patient History Limitations: Reports: No Limitations - History of Present Illness INITIAL COMMENTS - FREE TEXT/NARRATIVE: Patient is a 58 year old female who presents to the ED today for evaluation of right sided abdominal pain. The pain has started in her back over a year ago and is now radiating to her right flank. It feels like a pressure on her right side that is constant. The pain is made worse with standing and laying on either side, though laying on her left side hurts worse than the right side. The only modifier she has found for her pain is to lay supine. She states she has noticed some swelling on her right side. Reports a rocking sensation like she "is on a boat" when she stands up, fever, weakness, fatigue, decreased appetite, diarrhea and nausea. She also says she feels bloated and has a "ripping" sensation in her lower abdomen. She denies any increase in urination, dysuria and constipation. She still has her gall bladder and appendix. She has had a hysterectomy and left salpingo oophorectomy with her right ovary still remaining. Onset: Gradual Duration: Day(s):, Constant, Getting Worse Location: Reports: Abdomen (right flank) Improves with: Reports: None Worsens with: Reports: Breathing, Movement Associated Symptoms: Reports: Fever/Chills, Loss of Appetite, Nausea/Vomiting Right Abdomen Pain Score (Numeric/FACES): 9 - Related Data Allergies Allergy/AdvReac Type Severity Reaction Status Date / Time erythromycin lactobionate Allergy Blisters Verified 05/04/19 15:33 [From Erythrocin] levofloxacin [From Levaquin] Allergy Other Verified 05/04/19 15:33 linezolid [From Zyvox] Allergy Cannot Verified 05/04/19 15:33 Remember meloxicam [From Mobic] Allergy Cannot Verified 05/04/19 15:33 Remember milnacipran [From Savella] Allergy Cannot Verified 05/04/19 15:33 Remember oxycodone HCl Allergy Difficulty Verified 05/04/19 15:33 [From OxyContin] Breathing pregabalin [From Lyrica] Allergy Cannot Verified 05/04/19 15:33 Remember tetracycline Allergy Blisters Verified 05/04/19 15:33 amoxicillin AdvReac Nausea and Verified 05/04/19 15:33 Vomiting eszopiclone [From Lunesta] AdvReac Delusions Verified 05/04/19 15:33 Penicillins AdvReac Blisters Verified 05/04/19 15:33 tapentadol HCl [From Nucynta] AdvReac Numbness Verified 05/04/19 15:33 Home Meds: Home Meds Temazepam 30 mg PO BEDTIME 12/09/16 [History] Omeprazole 40 mg PO ACBREAKFAST #60 tablet. 03/07/19 [Rx] Hydrocodone/Acetaminophen [Hydrocodon-Acetaminophn 10-325] 1 tab PO Q4H PRN [History] Past Medical History HEENT History: Reports: Impaired Vision Other HEENT History: wears glasses Cardiovascular History: Reports: Blood Clots/VTE/DVT, Hypertension, Other (See Below) Other Cardiovascular History: pericarditis Respiratory History: Reports: Bronchitis, Recurrent, Pneumonia, Recurrent, Other (See Below) Other Respiratory History: cough Gastrointestinal History: Reports: GERD Other Gastrointestinal History: abdominal pain, chronic nausea Genitourinary History: Reports: Chronic Renal Insuffiency Other Genitourinary History: frequency, UTIs, vaginosis Other DIRECTOR OF RECRUITMENT History: Menopause Musculoskeletal History: Reports: Fracture, RA Other Musculoskeletal History: R achilles tendon contracture, R ankle fracture, R knee pain and medical meniscus tear, R tibialis posterior tendinitis Neurological History: Reports: Headaches, Chronic Psychiatric History: Reports: Depression, PTSD, Other (See Below) Endocrine/Metabolic History: Reports: Obesity/BMI 30+ Other Endocrine/Metabolic History: cysts on thyroid, gets ultrasound once a year to monitor. Hematologic History: Reports: Other (See Below) Other Hematologic History: antiphospholipid syndrome Immunologic History: Reports: SLE Other Immunologic History: Lupus Oncologic (Cancer) History: Reports: Cervix Dermatologic History: Reports: None, Other (See Below) Other Dermatologic History: rosacea, rash, skin neoplasm, herpes zoster - Infectious Disease History Infectious Disease History: Reports: None - Past Surgical History Head Surgeries/Procedures: Reports: None GI Surgical History: Reports: EGD Female Surgical History: Reports: Hysterectomy, Oophorectomy, Tubal Ligation Musculoskeletal Surgical History: Reports: Arthroscopic Knee, Carpal Tunnel, Nerve Relocation, ORIF Social & Family History - Family History Family Medical History: Noncontributory Cardiac: Reports: [place] Respiratory: Reports: None GI: Reports: None : Reports: None OBGYN: Reports: None Musculoskeletal: Reports: None Neurological: Reports: None Psychiatric: Reports: None Endocrine/Metabolic: Reports: None Hematologic: Reports: None Immunologic: Reports: None Oncologic: Reports: Bone, Breast, Lung - Tobacco Use Smoking Status *Q: Current Every Day Smoker Years of Tobacco use: 16 Packs/Tins Daily: 0.5 - Caffeine Use Caffeine Use: Reports: Coffee - Recreational Drug Use Recreational Drug Use: No - Living Situation & Occupation Living situation: Reports: (), Alone Occupation: Unemployed ED ROS GENERAL - Review of Systems Review Of Systems: See Below Constitutional: Reports: Fever, Weakness, Fatigue, Decreased Appetite HEENT: Reports: No Symptoms Respiratory: Reports: No Symptoms Cardiovascular: Reports: No Symptoms Endocrine: Reports: No Symptoms GI/Abdominal: Reports: Diarrhea, Nausea, Other (feels a bloating and ripping sensation in lower abdomen ) : Reports: No Symptoms Musculoskeletal: Reports: No Symptoms Skin: Reports: Other (facial flushing ) Neurological: Reports: No Symptoms Psychiatric: Reports: No Symptoms Hematologic/Lymphatic: Reports: No Symptoms Immunologic: Reports: No Symptoms ED EXAM, GI/ABD - Physical Exam Exam: See Below Exam Limited By: No Limitations General Appearance: Alert, WD/WN, No Apparent Distress Eyes: Bilateral: Normal Appearance, EOMI Head: Atraumatic, Normocephalic Respiratory/Chest: No Respiratory Distress, Lungs Clear, Normal Breath Sounds, No Accessory Muscle Use, Chest Non-Tender Cardiovascular: Normal Peripheral Pulses, Regular Rate, Rhythm, No Edema, No Gallop, No JVD, No Murmur, No Rub GI/Abdominal Exam: Normal Bowel Sounds, Soft, No Organomegaly, No Distention, No Abnormal Bruit, No Mass, Pelvis Stable, Guarding (right flank), Tender (with palpation of RUQ with radiation to back ) Back Exam: Normal Inspection, Full Range of Motion, NT Extremities: Normal Inspection, Normal Range of Motion, Non-Tender, Normal Capillary Refill, No Pedal Edema Neurological: Alert, Oriented Psychiatric: Normal Affect, Normal Mood Skin Exam: Warm, Dry, Intact, No Rash, Other (facial flushing ) Course - Vital Signs Last Recorded V/S: Last Vital Signs Temp 97.1 F 05/04/19 15:30 Pulse 97 05/04/19 15:30 Resp 22 H 05/04/19 15:30 BP 188/103 H 05/04/19 15:30 Pulse Ox 100 05/04/19 15:30 - Orders/Labs/Meds Orders: Active Orders 24 hr Category Date Time Status Peripheral IV Care [RC] . DIRECTED Care 05/04/19 16:43 Active Abdomen 1V Flat [CR] Stat Exams 05/04/19 16:40 Taken Sodium Chloride 0.9% [Saline Flush] Med 05/04/19 16:42 Active 10 ml FLUSH ASDIRECTED PRN Peripheral IV Insertion Adult [OM.PC] Stat Oth 05/04/19 16:42 Ordered Medication Orders Sodium Chloride (Saline Flush) 10 ml FLUSH ASDIRECTED PRN PRN Reason: Keep Vein Open Last Admin: 05/04/19 17:21 Dose: 10 ml Labs: Laboratory Tests 05/04/19 05/04/19 05/04/19 Range/Units 17:21 17:21 17:50 WBC 9.06 (3.98-10.04) K/mm3 RBC 4.94 (3.98-5.22) M/mm3 Hgb 14.2 (11.2-15.7) gm/dl Hct 41.7 (34.1-44.9) % MCV 84.4 (79.4-94.8) fl MCH 28.7 (25.6-32.2) pg MCHC 34.1 (32.2-35.5) g/dl RDW Std Deviation 42.1 (36.4-46.3) fL Plt Count 214 (182-369) K/mm3 MPV 11.3 (9.4-12.3) fl Neutrophils % (Manual) 67 H (40-60) % Band Neutrophils % 0 (0-10) % Lymphocytes % (Manual) 23 (20-40) % Atypical Lymphs % 0 % Monocytes % (Manual) 9 (2-10) % Eosinophils % (Manual) 1 (0.7-5.8) % Basophils % (Manual) 0 L (0.1-1.2) Platelet Estimate Adequate RBC Morph Comment Normal Sodium 140 (136-145) mEq/L Potassium 3.8 (3.5-5.1) mEq/L Chloride 102 (98-107) mEq/L Carbon Dioxide 27 (21-32) mEq/L Anion Gap 14.8 (5-15) BUN 13 (7-18) mg/dL Creatinine 1.0 (0.55-1.02) mg/dL Est Cr Clr Drug Dosing 52.95 mL/min Estimated GFR (MDRD) 57 (>60) mL/min BUN/Creatinine Ratio 13.0 L (14-18) Glucose 86 (74-106) mg/dL Calcium 9.8 (8.5-10.1) mg/dL Total Bilirubin 0.3 (0.2-1.0) mg/dL AST 18 (15-37) U/L ALT 27 (14-59) U/L Alkaline Phosphatase 93 (46-116) U/L Total Protein 7.7 (6.4-8.2) g/dl Albumin 4.0 (3.4-5.0) g/dl Globulin 3.7 gm/dL Albumin/Globulin Ratio 1.1 (1-2) Lipase 94 (73-393) U/L Urine Color Yellow (Yellow) Urine Appearance Clear (Clear) Urine pH 6.0 (5.0-8.0) Ur Specific [place] 1.025 (1.005-1.030) Urine Protein Negative (Negative) Urine Glucose (UA) Negative (Negative) Urine Ketones Negative (Negative) Urine Occult Blood Negative (Negative) Urine Nitrite Negative (Negative) Urine Bilirubin Negative (Negative) Urine Urobilinogen 0.2 (0.2-1.0) Ur Leukocyte Esterase Negative (Negative) Urine RBC 0-5 (0-5) /hpf Urine WBC 0-5 (0-5) /hpf Ur Squamous Epith Cells 0-5 (0-5) /hpf Urine Bacteria Occasional (FEW) /hpf Urine Mucus Not seen (FEW) /hpf Meds: Medications Generic Name Dose Route Start Last Admin Trade Name Freq PRN Reason Stop Dose Admin Sodium Chloride 10 ml 05/04/19 16:42 05/04/19 17:21 Saline Flush FLUSH 10 ml ASDIRECTED PRN Administration Keep Vein Open Discontinued Medications Generic Name Dose Route Start Last Admin Trade Name Freq PRN Reason Stop Dose Admin Hydromorphone HCl 0.5 mg 05/04/19 16:42 05/04/19 17:21 Dilaudid IVPUSH 05/04/19 16:43 Not Given ONETIME ONE Sodium Chloride 1,000 mls @ 500 mls/hr 05/04/19 16:43 05/04/19 17:21 Normal Saline IV 05/04/19 18:42 500 mls/hr ONETIME ONE Administration Ondansetron HCl 4 mg 05/04/19 16:42 05/04/19 17:21 Zofran IVPUSH 05/04/19 16:43 4 mg ONETIME ONE Administration Departure - Departure Disposition: Home, Self-Care 01 Clinical Impression: Mid back pain on right side - Discharge Information Referrals: Uzma Mckoy PRINTER TECHNICIAN [Primary Care Provider] - Forms: ED Department Discharge Additional Instructions: You were evaluated in the ER regarding your right sided flank/back/abdominal pain. Your laboratory evaluation was completely within normal limits, there are no acute abnormalities to suggest any sort of bacterial infection at this time. Your abdomen x-ray did not demonstrate any sort of obstruction, or constipation pattern. Your pain was worsened by palpation of your right upper quadrant, but the pain was felt into your right mid back. This is suggestive that it might be a pain of musculoskeletal origin, such as a rib head popped out of place. Recommend that you try to go to a chiropractor to see if this does not provide you relief. You may also take 600 mg ibuprofen or 500 mg Tylenol every 6 hours as needed for further pain relief. Do not exceed 4000 mg Tylenol or 3200 mg ibuprofen in a 24-hour time span. You may also take your hydrocodone as previously prescribed for further pain relief. Regarding your nausea, and stomach pain. You may likely have an ulcer, however I cannot diagnosis in the ER. Recommend you follow up with your primary care provider for an upper GI endoscopy to evaluate for this. You are already taking omeprazole, continue to take this daily. Please return to the ED at any time if your symptoms change or worsen - My Orders Last 24 Hours: My Active Orders 05/04/19 16:40 Abdomen 1V Flat [CR] Stat 05/04/19 16:42 Sodium Chloride 0.9% [Saline Flush] 10 ml FLUSH ASDIRECTED PRN Peripheral IV Insertion Adult [OM.PC] Stat 05/04/19 16:43 Peripheral IV Care [RC] . DIRECTED - Assessment/Plan Last 24 Hours: My Active Orders 05/04/19 16:40 Abdomen 1V Flat [CR] Stat 05/04/19 16:42 Sodium Chloride 0.9% [Saline Flush] 10 ml FLUSH ASDIRECTED PRN Peripheral IV Insertion Adult [OM.PC] Stat 05/04/19 16:43 Peripheral IV Care [RC] . DIRECTED <Deborah Fuller - Last Filed: 05/04/19 19:04> ED HPI GENERAL MEDICAL PROBLEM - History of Present Illness INITIAL COMMENTS - FREE TEXT/NARRATIVE: I have read and reviewed the student's HPI and examined the patient and agree with LISA Camara-student. Course - Orders/Labs/Meds Labs: Laboratory Tests 05/04/19 05/04/19 05/04/19 Range/Units 17:21 17:21 17:50 WBC 9.06 (3.98-10.04) K/mm3 RBC 4.94 (3.98-5.22) M/mm3 Hgb 14.2 (11.2-15.7) gm/dl Hct 41.7 (34.1-44.9) % MCV 84.4 (79.4-94.8) fl MCH 28.7 (25.6-32.2) pg MCHC 34.1 (32.2-35.5) g/dl RDW Std Deviation 42.1 (36.4-46.3) fL Plt Count 214 (182-369) K/mm3 MPV 11.3 (9.4-12.3) fl Neutrophils % (Manual) 67 H (40-60) % Band Neutrophils % 0 (0-10) % Lymphocytes % (Manual) 23 (20-40) % Atypical Lymphs % 0 % Monocytes % (Manual) 9 (2-10) % Eosinophils % (Manual) 1 (0.7-5.8) % Basophils % (Manual) 0 L (0.1-1.2) Platelet Estimate Adequate RBC Morph Comment Normal Sodium 140 (136-145) mEq/L Potassium 3.8 (3.5-5.1) mEq/L Chloride 102 (98-107) mEq/L Carbon Dioxide 27 (21-32) mEq/L Anion Gap 14.8 (5-15) BUN 13 (7-18) mg/dL Creatinine 1.0 (0.55-1.02) mg/dL Est Cr Clr Drug Dosing 52.95 mL/min Estimated GFR (MDRD) 57 (>60) mL/min BUN/Creatinine Ratio 13.0 L (14-18) Glucose 86 (74-106) mg/dL Calcium 9.8 (8.5-10.1) mg/dL Total Bilirubin 0.3 (0.2-1.0) mg/dL AST 18 (15-37) U/L ALT 27 (14-59) U/L Alkaline Phosphatase 93 (46-116) U/L Total Protein 7.7 (6.4-8.2) g/dl Albumin 4.0 (3.4-5.0) g/dl Globulin 3.7 gm/dL Albumin/Globulin Ratio 1.1 (1-2) Lipase 94 (73-393) U/L Urine Color Yellow (Yellow) Urine Appearance Clear (Clear) Urine pH 6.0 (5.0-8.0) Ur Specific [place] 1.025 (1.005-1.030) Urine Protein Negative (Negative) Urine Glucose (UA) Negative (Negative) Urine Ketones Negative (Negative) Urine Occult Blood Negative (Negative) Urine Nitrite Negative (Negative) Urine Bilirubin Negative (Negative) Urine Urobilinogen 0.2 (0.2-1.0) Ur Leukocyte Esterase Negative (Negative) Urine RBC 0-5 (0-5) /hpf Urine WBC 0-5 (0-5) /hpf Ur Squamous Epith Cells 0-5 (0-5) /hpf Urine Bacteria Occasional (FEW) /hpf Urine Mucus Not seen (FEW) /hpf - Re-Assessments/Exams Free Text/Narrative Re-Assessment/Exam: 05/04/19 17:19 Patient presents to the ED for evaluation of right sided flank/abdominal pain/ back pain. Unsure as to what the etiology of her pain might actually be. She states that the pain hurts worse in her back, she takes a deep breath. Did order a few labs, and a KUB for initial management. 05/04/19 19:03 Patient's labs have returned, and demonstrate no acute abnormalities. Everything is essentially within normal limits. The abdomen x-ray also does not elicit any sort of acute etiology is secondary causing her abdominal pain. Upon examination, when I pushed her right upper quadrant, she felt pain into her back, which is suggestive of more musculoskeletal pain in origin. I will give general recommendations and discharge patient home at this time. Departure - Departure Time of Disposition: 18:58 Condition: Fair - Discharge Information *PRESCRIPTION DRUG MONITORING PROGRAM REVIEWED*: No *COPY OF PRESCRIPTION DRUG MONITORING REPORT IN PATIENT RENA: No
[2019-05-04] MEDS ORDERED: Sodium Chloride 0.9% 10 ML Syringe FLUSH PRN (16:42)
[2019-05-04] MEDS ORDERED: HYDROmorphone 0.5 MG/0.5 ML Syringe IVPUSH ONE (16:42)
[2019-05-04] MEDS ORDERED: Ondansetron 4 MG/2 ML SDV IVPUSH ONE (16:42)
[2019-05-04] MEDS ORDERED: Sodium Chloride 0.9% 1,000 ML IV ONE (16:43)
--- NOTE | 2019-05-05 06:44 | CR ---
Abdomen: Supine view of the abdomen was obtained. Comparison: Prior abdominal x-ray of 03/05/19. Scattered gas within colon and small bowel is seen which appears normal. Calcifications are seen within the pelvis which are felt compatible with phleboliths. No discrete soft tissue abnormality seen. Bony structures show nothing acute. Impression: 1. Nothing acute is seen on supine abdominal x-ray. Diagnostic code #2
== END 2019-05-04 19:20 | disposition home or self-care (01) ==
LOC: JD.ED 15:18
DX: M54.6 Pain in thoracic spine (principal); K21.9 Gastro-esophageal reflux disease without esophagitis; I12.9 Hypertensive chronic kidney disease with stage 1 through stage 4 chronic kidney disease, or unspecified chronic kidney disease; N18.9 Chronic kidney disease, unspecified; E66.9 Obesity, unspecified; F17.210 Nicotine dependence, cigarettes, uncomplicated; Z88.0 Allergy status to penicillin; Z88.1 Allergy status to other antibiotic agents; Z88.8 Allergy status to other drugs, medicaments and biological substances; Z88.6 Allergy status to analgesic agent; Z79.899 Other long term (current) drug therapy; Z86.718 Personal history of other venous thrombosis and embolism; Z68.30 Body mass index [BMI] 30.0-30.9, adult
CPT/HCPCS: 36415; 74018; 74018-26; 80053; 81001; 83690; 85007; 85027; 96361; 96374; 99283; 99284-25; J2405; J7040

== ENCOUNTER 2021-02-04 15:18 | Emergency (ER) | payer MEDICARE, OTHER, MEDICAID ==
[2021-02-04 15:32] VITALS: BP 173/89; PULSE 79
[2021-02-04] MEDS ORDERED: HYDROmorphone 0.5 MG/0.5 ML Syringe IVPUSH ONE (16:03)
[2021-02-04] MEDS ORDERED: LORazepam 2 MG/ML SDV IVPUSH ONE (16:03)
[2021-02-04] MEDS ORDERED: Sodium Chloride 0.9% 10 ML Syringe FLUSH PRN (16:03)
[2021-02-04] MEDS ORDERED: Sodium Chloride 0.9% 1,000 ML IV SCH (16:15)
--- NOTE | 2021-02-04 17:05 | EDM.PDOC ---
ED HPI GENERAL MEDICAL PROBLEM - General Chief Complaint: General Stated Complaint: SOB/NUMBNESS IN FACE Time Seen by Provider: 02/04/21 15:41 Source of Information: Reports: Patient, RN Notes Reviewed - History of Present Illness INITIAL COMMENTS - FREE TEXT/NARRATIVE: 60 yr old female comes in with numerous sx. She has posterior and L sided sparks, dizziness, dyspnea, upper abd pain, facial paresthesias, muscle aches, back pain, decreased appetite, chronic diarrhea but worse yesterday and today. Because of worsening sx her cymbalta was increased from 40 mg daily to 60 mg daily about a month ago. Than due to further worsening of sx decreased back to 40 mg 4 days ago. No cough, fever, chills or difficulty breathing. According to patient hx of fibromyalgia, Lupus, RA, Lactose intolerance, seizures. Middle Abdominal Pain Score (Numeric/FACES): 7 - Related Data Allergies Allergy/AdvReac Type Severity Reaction Status Date / Time erythromycin lactobionate Allergy Blisters Verified 02/04/21 15:32 [From Erythrocin] levofloxacin [From Levaquin] Allergy Other Verified 02/04/21 15:32 linezolid [From Zyvox] Allergy Cannot Verified 02/04/21 15:32 Remember meloxicam [From Mobic] Allergy Cannot Verified 02/04/21 15:32 Remember milnacipran [From Savella] Allergy Cannot Verified 02/04/21 15:32 Remember oxycodone HCl Allergy Difficulty Verified 02/04/21 15:32 [From OxyContin] Breathing pregabalin [From Lyrica] Allergy Cannot Verified 02/04/21 15:32 Remember tetracycline Allergy Blisters Verified 02/04/21 15:32 amoxicillin AdvReac Nausea and Verified 02/04/21 15:32 Vomiting eszopiclone [From Lunesta] AdvReac Delusions Verified 02/04/21 15:32 Penicillins AdvReac Blisters Verified 02/04/21 15:32 tapentadol HCl [From Nucynta] AdvReac Numbness Verified 02/04/21 15:32 Home Meds: Home Meds Temazepam 30 mg PO BEDTIME 12/09/16 [History] Hydrocodone/Acetaminophen [Hydrocodon-Acetaminophn 10-325] 1 tab PO Q6HR PRN 10/30/19 [History] Aspirin 81 mg PO DAILY 02/04/21 [History] DULoxetine [Cymbalta] 30 mg PO DAILY 02/04/21 [History] Past Medical History HEENT History: Reports: Impaired Vision Other HEENT History: wears glasses Cardiovascular History: Reports: Blood Clots/VTE/DVT, Hypertension, Other (See Below) Other Cardiovascular History: pericarditis Respiratory History: Reports: Bronchitis, Recurrent, Pneumonia, Recurrent, Other (See Below) Other Respiratory History: cough Gastrointestinal History: Reports: GERD Other Gastrointestinal History: abdominal pain, chronic nausea Genitourinary History: Reports: Chronic Renal Insuffiency Other Genitourinary History: frequency, UTIs, vaginosis Other DIE MAINTENANCE History: Menopause Musculoskeletal History: Reports: Fracture, RA Other Musculoskeletal History: R achilles tendon contracture, R ankle fracture, R knee pain and medical meniscus tear, R tibialis posterior tendinitis Neurological History: Reports: Headaches, Chronic Psychiatric History: Reports: Depression, PTSD, Other (See Below) Endocrine/Metabolic History: Reports: Obesity/BMI 30+ Other Endocrine/Metabolic History: cysts on thyroid, gets ultrasound once a year to monitor. Hematologic History: Reports: Other (See Below) Other Hematologic History: antiphospholipid syndrome Immunologic History: Reports: SLE Other Immunologic History: Lupus Oncologic (Cancer) History: Reports: Cervix Dermatologic History: Reports: None, Other (See Below) Other Dermatologic History: rosacea, rash, skin neoplasm, herpes zoster - Infectious Disease History Infectious Disease History: Reports: Chicken Pox, Shingles - Past Surgical History Head Surgeries/Procedures: Reports: None HEENT Surgical History: Reports: None Cardiovascular Surgical History: Reports: None Respiratory Surgical History: Reports: None GI Surgical History: Reports: EGD Female Surgical History: Reports: Hysterectomy, Oophorectomy, Tubal Ligation Other Female Surgeries/Procedures: laparoscopy Endocrine Surgical History: Reports: None Neurological Surgical History: Reports: Other (See Below) Musculoskeletal Surgical History: Reports: Arthroscopic Knee, Carpal Tunnel, Nerve Relocation, ORIF Other Musculoskeletal Surgeries/Procedures:: right knee surgery and left ulnar nerve surgery, ORIF R ankle Dermatological Surgical History: Reports: None Social & Family History - Family History Family Medical History: No Pertinent Family History Cardiac: Reports: [place] Respiratory: Reports: None GI: Reports: None : Reports: None OBGYN: Reports: None Musculoskeletal: Reports: None Neurological: Reports: None Psychiatric: Reports: None Endocrine/Metabolic: Reports: None Hematologic: Reports: None Immunologic: Reports: None Oncologic: Reports: Bone, Breast, Lung - Tobacco Use Tobacco Use Status *Q: Light Tobacco User Years of Tobacco use: 19 Packs/Tins Daily: 0.1 - Caffeine Use Caffeine Use: Reports: Coffee - Recreational Drug Use Recreational Drug Use: No - Living Situation & Occupation Living situation: Reports: (), Alone Occupation: Unemployed ED ROS GENERAL - Review of Systems Review Of Systems: See Below Constitutional: Denies: Fever, Chills, Diaphoresis HEENT: Reports: Other (dry mouth). Denies: Sinus Problem, Throat Pain, Vertigo Respiratory: Reports: Shortness of Breath Cardiovascular: Denies: Chest Pain GI/Abdominal: Reports: Abdominal Pain, Diarrhea, Decreased Appetite. Denies: Hematochezia, Melena, Vomiting Musculoskeletal: Reports: Other (generalized achiness. ) Skin: Denies: Rash Neurological: Reports: Dizziness, Headache, Numbness Psychiatric: Reports: Anxiety ED EXAM, GENERAL - Physical Exam Exam: See Below General Appearance: Alert, Anxious Eye Exam: Bilateral Eye: PERRL Throat/Mouth: Other (oral mucosa dry) Head: Atraumatic Neck: Supple Respiratory/Chest: No Respiratory Distress, Lungs Clear, Normal Breath Sounds Cardiovascular: Regular Rate, Rhythm GI/Abdominal: Tender (mild tenderness upper mid abd) Back Exam: No: CVA Tenderness (L), CVA Tenderness (R) Extremities: No: Leg Pain Neurological: Alert, Oriented, No Motor/Sensory Deficits Skin Exam: Warm, Dry, Normal Color Course - Vital Signs Last Recorded V/S: Last Vital Signs Temp 96.9 F 02/04/21 15:28 Pulse 79 02/04/21 15:28 Resp 18 02/04/21 15:28 BP 173/89 H 02/04/21 15:28 Pulse Ox 97 02/04/21 15:28 - Orders/Labs/Meds Orders: Active Orders 24 hr Category Date Time Status Peripheral IV Care [RC] . DIRECTED Care 02/04/21 16:04 Active Ketorolac [Toradol] Med 02/04/21 18:00 Active 30 mg IVPUSH ONETIME Sodium Chloride 0.9% [Normal Saline] 1,000 ml Med 02/04/21 16:15 Active IV ONETIME Sodium Chloride 0.9% [Saline Flush] Med 02/04/21 16:03 Active 10 ml FLUSH ASDIRECTED PRN Peripheral IV Insertion Adult [OM.PC] Stat Oth 02/04/21 16:03 Ordered Medication Orders Sodium Chloride (Normal Saline) 1,000 mls @ 999 mls/hr IV ONETIME RADHA Last Admin: 02/04/21 16:16 Dose: 999 mls/hr Documented by: KAYLA Ketorolac Tromethamine (Ketorolac 30 Mg/Ml Sdv) 30 mg IVPUSH ONETIME RADHA Sodium Chloride (Sodium Chloride 0.9% 10 Ml Syringe) 10 ml FLUSH ASDIRECTED PRN PRN Reason: Keep Vein Open Last Admin: 02/04/21 16:17 Dose: 10 ml Documented by: KAYLA Labs: Laboratory Tests 02/04/21 02/04/21 02/04/21 Range/Units 16:15 16:15 16:15 WBC 7.00 (3.98-10.04) K/mm3 RBC 5.06 (3.98-5.22) M/mm3 Hgb 14.5 (11.2-15.7) gm/dl Hct 42.3 (34.1-44.9) % MCV 83.6 (79.4-94.8) fl MCH 28.7 (25.6-32.2) pg MCHC 34.3 (32.2-35.5) g/dl RDW Std Deviation 41.1 (36.4-46.3) fL Plt Count 249 (182-369) K/mm3 MPV 10.8 (9.4-12.3) fl Neut % (Auto) 56.8 (34.0-71.1) % Lymph % (Auto) 31.1 (19.3-51.7) % [place] % (Auto) 10.3 (4.7-12.5) % Eos % (Auto) 1.4 (0.7-5.8) Baso % (Auto) 0.4 (0.1-1.2) % Neut # (Auto) 3.97 (1.56-6.13) K/mm3 Lymph # (Auto) 2.18 (1.18-3.74) K/mm3 [place] # (Auto) 0.72 H (0.24-0.36) K/mm3 Eos # (Auto) 0.10 (0.04-0.36) K/mm3 Baso # (Auto) 0.03 (0.01-0.08) K/mm3 Sodium 141 (136-145) mEq/L Potassium 4.4 (3.5-5.1) mEq/L Chloride 105 (98-107) mEq/L Carbon Dioxide 27 (21-32) mEq/L Anion Gap 13.4 (5-15) BUN 21 H (7-18) mg/dL Creatinine 1.0 (0.55-1.02) mg/dL Est Cr Clr Drug Dosing 51.66 mL/min Estimated GFR (MDRD) 57 (>60) mL/min BUN/Creatinine Ratio 21.0 H (14-18) Glucose 101 H (70-99) mg/dL Calcium 8.9 (8.5-10.1) mg/dL Magnesium (1.8-2.4) mg/dL Total Bilirubin 0.3 (0.2-1.0) mg/dL AST 29 (15-37) U/L ALT 44 (14-59) U/L Alkaline Phosphatase 87 (46-116) U/L C-Reactive Protein 0.7 (<1.0) mg/dL Total Protein 7.5 (6.4-8.2) g/dl Albumin 3.9 (3.4-5.0) g/dl Globulin 3.6 gm/dL Albumin/Globulin Ratio 1.1 (1-2) Lipase 87 (73-393) U/L TSH 3rd Generation 0.982 (0.358-3.74) uIU/mL 02/04/21 Range/Units 16:15 WBC (3.98-10.04) K/mm3 RBC (3.98-5.22) M/mm3 Hgb (11.2-15.7) gm/dl Hct (34.1-44.9) % MCV (79.4-94.8) fl MCH (25.6-32.2) pg MCHC (32.2-35.5) g/dl RDW Std Deviation (36.4-46.3) fL Plt Count (182-369) K/mm3 MPV (9.4-12.3) fl Neut % (Auto) (34.0-71.1) % Lymph % (Auto) (19.3-51.7) % [place] % (Auto) (4.7-12.5) % Eos % (Auto) (0.7-5.8) Baso % (Auto) (0.1-1.2) % Neut # (Auto) (1.56-6.13) K/mm3 Lymph # (Auto) (1.18-3.74) K/mm3 [place] # (Auto) (0.24-0.36) K/mm3 Eos # (Auto) (0.04-0.36) K/mm3 Baso # (Auto) (0.01-0.08) K/mm3 Sodium (136-145) mEq/L Potassium (3.5-5.1) mEq/L Chloride (98-107) mEq/L Carbon Dioxide (21-32) mEq/L Anion Gap (5-15) BUN (7-18) mg/dL Creatinine (0.55-1.02) mg/dL Est Cr Clr Drug Dosing mL/min Estimated GFR (MDRD) (>60) mL/min BUN/Creatinine Ratio (14-18) Glucose (70-99) mg/dL Calcium (8.5-10.1) mg/dL Magnesium 2.1 (1.8-2.4) mg/dL Total Bilirubin (0.2-1.0) mg/dL AST (15-37) U/L ALT (14-59) U/L Alkaline Phosphatase (46-116) U/L C-Reactive Protein (<1.0) mg/dL Total Protein (6.4-8.2) g/dl Albumin (3.4-5.0) g/dl Globulin gm/dL Albumin/Globulin Ratio (1-2) Lipase (73-393) U/L TSH 3rd Generation (0.358-3.74) uIU/mL Meds: Medications Generic Name Dose Route Start Last Admin Trade Name Freq PRN Reason Stop Dose Admin Sodium Chloride 1,000 mls @ 999 mls/hr 02/04/21 16:15 02/04/21 16:16 Normal Saline IV 999 mls/hr ONETIME RADHA Administration Ketorolac Tromethamine 30 mg 02/04/21 18:00 Ketorolac 30 Mg/Ml Sdv IVPUSH ONETIME RADHA Sodium Chloride 10 ml 02/04/21 16:03 02/04/21 16:17 Sodium Chloride 0.9% 10 Ml Syringe FLUSH 10 ml ASDIRECTED PRN Administration Keep Vein Open Discontinued Medications Generic Name Dose Route Start Last Admin Trade Name Cindy PRN Reason Stop Dose Admin Hydromorphone HCl 0.5 mg 02/04/21 16:03 02/04/21 17:05 Hydromorphone 0.5 Mg/0.5 Ml Syringe IVPUSH 02/04/21 16:04 Not Given ONETIME ONE Lorazepam 1 mg 02/04/21 16:03 02/04/21 16:17 Lorazepam 2 Mg/Ml Sdv IVPUSH 02/04/21 16:04 1 mg ONETIME ONE Administration - Re-Assessments/Exams Free Text/Narrative Re-Assessment/Exam: 02/04/21 18:36 Labs all came back relatively normal. Of note pt had about a 2 minute brief seizure just after ativan given for quite severe anxiety noted at time of initial exam. She was alert and answering questions right after the seizure and also did not became tachycardic or display any respiratory distress so possibility of pseudoseizure also a consideration. At time of reexam a short time ago pt is feeling better, still having some abd pain, torodol ordered some time ago, pt is just getting that now. I do believe with her various neuro sx that MRI is indicated. Order written for that. Radiology will call her in the morning to get her scheduled for that. Discharge instr. as documented. Departure - Departure Time of Disposition: 18:26 Disposition: Home, Self-Care 01 Condition: Fair Clinical Impression: Seizure Headache Qualifiers: Headache type: unspecified Headache chronicity pattern: acute headache Intractability: not intractable Qualified Code(s): R51.9 - Headache, unspecified - Discharge Information Referrals: Uzma Mckoy, JOINTER OPERATOR [Primary Care Provider] - Forms: ED Department Discharge Additional Instructions: Rest. Clear liquids and careful bland diet as tolerated. Probiotic twice daily, thereafter as needed for abd cramping and or diarrhea. MRI of head. Radiology will call you tomorrow morning for a time for that. Follow up with Idalmis Mckoy one or 2 days after the MRI for recheck and for results. Return to ED as needed if symptoms worsening in any way. Sepsis Event Note (ED) - Evaluation Sepsis Screening Result: No Definite Risk - Focused Exam Vital Signs: Vital Signs Temp Pulse Resp BP Pulse Ox 02/04/21 15:28 96.9 F 79 18 173/89 H 97 - My Orders Last 24 Hours: My Active Orders 02/04/21 16:03 Sodium Chloride 0.9% [Saline Flush] 10 ml FLUSH ASDIRECTED PRN Peripheral IV Insertion Adult [OM.PC] Stat 02/04/21 16:04 Peripheral IV Care [RC] . DIRECTED 02/04/21 16:15 Sodium Chloride 0.9% [Normal Saline] 1,000 ml IV ONETIME 02/04/21 18:00 Ketorolac [Toradol] 30 mg IVPUSH ONETIME - Assessment/Plan Last 24 Hours: My Active Orders 02/04/21 16:03 Sodium Chloride 0.9% [Saline Flush] 10 ml FLUSH ASDIRECTED PRN Peripheral IV Insertion Adult [OM.PC] Stat 02/04/21 16:04 Peripheral IV Care [RC] . DIRECTED 02/04/21 16:15 Sodium Chloride 0.9% [Normal Saline] 1,000 ml IV ONETIME 02/04/21 18:00 Ketorolac [Toradol] 30 mg IVPUSH ONETIME
[2021-02-04] MEDS ORDERED: Ketorolac 30 MG/ML SDV IVPUSH SCH (18:00)
== END 2021-02-04 19:14 | disposition home or self-care (01) ==
LOC: JD.ED 15:18
DX: R51.9 Headache, unspecified (principal); R56.9 Unspecified convulsions; E66.9 Obesity, unspecified; Z68.38 Body mass index [BMI] 38.0-38.9, adult; I12.9 Hypertensive chronic kidney disease with stage 1 through stage 4 chronic kidney disease, or unspecified chronic kidney disease; N18.9 Chronic kidney disease, unspecified; Z88.1 Allergy status to other antibiotic agents; Z88.8 Allergy status to other drugs, medicaments and biological substances; Z88.5 Allergy status to narcotic agent; Z88.0 Allergy status to penicillin; Z79.82 Long term (current) use of aspirin; Z79.899 Other long term (current) drug therapy
CPT/HCPCS: 36415; 80053; 83690; 83735; 84443; 85025; 86140; 96374; 99284; J1885; J2060; J7030

== ENCOUNTER 2021-05-06 12:10 | Emergency (ER) | payer MEDICARE, OTHER ==
[2021-05-06 12:22] VITALS: BP 162/78; PULSE 86
--- NOTE | 2021-05-06 13:11 | CR ---
Chest: Portable view of the chest was obtained. Comparison: Prior chest x-ray of 12/17/15. Heart size and mediastinum are within normal limits. Lungs are clear with no acute parenchymal change. Scattered degenerative endplate spurring is noted within the spine with disc space narrowing. Calcification is noted off the right shoulder compatible with previous calcific tendinitis. Impression: 1. Degenerative change as noted above. 2. Nothing acute is seen on portable chest x-ray. Diagnostic code #2
--- NOTE | 2021-05-06 13:55 | CR ---
Pelvis and left hip: AP view of the pelvis was obtained as well as AP and frog-leg lateral views of the left hip. Comparison: No prior pelvis or hip study is available. Joint spaces within both hips are fairly well preserved. Mild degenerative change is seen within the sacroiliac joints. Slight calcification is noted above the greater trochanter of the left hip which is old. No fracture or other abnormality is appreciated. Impression: 1. Degenerative change within the sacroiliac joints. 2. Old bony density off the superior greater tuberosity. 3. Nothing acute is seen. Diagnostic code #2
--- NOTE | 2021-05-06 14:13 | EDM.PDOC ---
ED HPI GENERAL MEDICAL PROBLEM - General Chief Complaint: Chest Pain Stated Complaint: CHEST PAIN \ LEFT SIDE PAIN Time Seen by Provider: 05/06/21 12:42 Source of Information: Reports: Patient, RN Notes Reviewed - History of Present Illness INITIAL COMMENTS - FREE TEXT/NARRATIVE: 60 yr old female comes in with multiple sx including L shoulder pain, L chest pain, L groin pain that has all been going on for a week or more. Occasional chronic cough, not short of breath, no recent fever or chills. No voiding sx. L shoulder pain is worse with motion. Chest Pain Score (Numeric/FACES): 2 - Related Data Allergies Allergy/AdvReac Type Severity Reaction Status Date / Time erythromycin lactobionate Allergy Blisters Verified 05/06/21 12:23 [From Erythrocin] levofloxacin [From Levaquin] Allergy Other Verified 05/06/21 12:23 linezolid [From Zyvox] Allergy Cannot Verified 05/06/21 12:23 Remember meloxicam [From Mobic] Allergy Cannot Verified 05/06/21 12:23 Remember milnacipran [From Savella] Allergy Cannot Verified 05/06/21 12:23 Remember oxycodone HCl Allergy Difficulty Verified 05/06/21 12:23 [From OxyContin] Breathing pregabalin [From Lyrica] Allergy Cannot Verified 05/06/21 12:23 Remember tetracycline Allergy Blisters Verified 05/06/21 12:23 amoxicillin AdvReac Nausea and Verified 05/06/21 12:23 Vomiting eszopiclone [From Lunesta] AdvReac Delusions Verified 05/06/21 12:23 Penicillins AdvReac Blisters Verified 05/06/21 12:23 tapentadol HCl [From Nucynta] AdvReac Numbness Verified 05/06/21 12:23 Home Meds: Home Meds Temazepam 30 mg PO BEDTIME 12/09/16 [History] Hydrocodone/Acetaminophen [Hydrocodon-Acetaminophn 10-325] 1 tab PO Q6HR PRN 05/04/19 [History] Aspirin 81 mg PO DAILY 02/04/21 [History] Naproxen [Naprosyn] 500 mg PO Q12HR #14 tab 05/06/21 [Rx] Omeprazole 20 mg PO ACBREAKFAST 05/06/21 [History] predniSONE [Prednisone] 50 mg PO DAILY #6 tablet 05/06/21 [Rx] Past Medical History HEENT History: Reports: Impaired Vision Other HEENT History: wears glasses Cardiovascular History: Reports: Blood Clots/VTE/DVT, Hypertension, Other (See Below) Other Cardiovascular History: pericarditisx2 Respiratory History: Reports: Bronchitis, Recurrent, Pneumonia, Recurrent, Other (See Below) Other Respiratory History: cough Gastrointestinal History: Reports: GERD, Other (See Below) Other Gastrointestinal History: abdominal pain, chronic nausea, lactose intolerant Genitourinary History: Reports: Chronic Renal Insuffiency Other Genitourinary History: frequency, vaginosis 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 Hematologic History: Reports: Other (See Below) Other Hematologic History: antiphospholipid syndrome Immunologic History: Reports: SLE Other Immunologic History: Lupus Oncologic (Cancer) History: Reports: Cervix Dermatologic History: Reports: None, Other (See Below) Other Dermatologic History: rosacea, rash, skin neoplasm, herpes zoster - Infectious Disease History Infectious Disease History: Reports: Chicken Pox, Shingles - Past Surgical History Head Surgeries/Procedures: Reports: None HEENT Surgical History: Reports: None Cardiovascular Surgical History: Reports: None Respiratory Surgical History: Reports: None GI Surgical History: Reports: EGD Female Surgical History: Reports: Hysterectomy, Oophorectomy, Tubal Ligation Other Female Surgeries/Procedures: laparoscopy Endocrine Surgical History: Reports: None Neurological Surgical History: Reports: Other (See Below) Musculoskeletal Surgical History: Reports: Arthroscopic Knee, Carpal Tunnel, Nerve Relocation, ORIF Other Musculoskeletal Surgeries/Procedures:: right knee surgery and left ulnar nerve surgery, ORIF R ankle Dermatological Surgical History: Reports: None Social & Family History - Family History Family Medical History: No Pertinent Family History Cardiac: Reports: [place] Respiratory: Reports: None GI: Reports: None : Reports: None OBGYN: Reports: None Musculoskeletal: Reports: None Neurological: Reports: None Psychiatric: Reports: None Endocrine/Metabolic: Reports: None Hematologic: Reports: None Immunologic: Reports: None Oncologic: Reports: Bone, Breast, Lung - Tobacco Use Tobacco Use Status *Q: Light Tobacco User Years of Tobacco use: 18 Packs/Tins Daily: 0.2 Used Tobacco, but Quit: No - Caffeine Use Caffeine Use: Reports: Coffee - Recreational Drug Use Recreational Drug Use: No - Living Situation & Occupation Living situation: Reports: (), Alone Occupation: Unemployed ED ROS GENERAL - Review of Systems Review Of Systems: See Below Constitutional: Denies: Fever, Chills HEENT: Reports: No Symptoms Respiratory: Denies: Shortness of Breath, Pleuritic Chest Pain Cardiovascular: Reports: Chest Pain GI/Abdominal: Denies: Abdominal Pain, Nausea, Vomiting Musculoskeletal: Reports: Shoulder Pain, Other (Pain L groin) Neurological: Denies: Trouble Speaking, Difficulty Walking, Weakness ED EXAM, GENERAL - Physical Exam Exam: See Below General Appearance: Alert, No Apparent Distress Throat/Mouth: Normal Inspection Head: Atraumatic Neck: Supple, Non-Tender Respiratory/Chest: No Respiratory Distress, Lungs Clear, Normal Breath Sounds, Chest Non-Tender Cardiovascular: Regular Rate, Rhythm GI/Abdominal: Soft, Non-Tender Extremities: Other (tender L ant. shoulder) Skin Exam: Warm, Dry, Normal Color #1 Interpretation EKG Date: 05/06/21 Rhythm: NSR [place]: Normal P-Wave: Present QRS: Normal ST-T: Normal Course - Vital Signs Last Recorded V/S: Last Vital Signs Temp 97.8 F 05/06/21 12:19 Pulse 86 05/06/21 12:19 Resp 18 05/06/21 12:19 BP 162/78 H 05/06/21 12:19 Pulse Ox 97 05/06/21 12:19 - Orders/Labs/Meds Labs: Laboratory Tests 05/06/21 05/06/21 05/06/21 Range/Units 13:22 13:22 14:27 WBC 8.47 (3.98-10.04) K/mm3 RBC 5.14 (3.98-5.22) M/mm3 Hgb 14.5 (11.2-15.7) gm/dl Hct 44.1 (34.1-44.9) % MCV 85.8 (79.4-94.8) fl MCH 28.2 (25.6-32.2) pg MCHC 32.9 (32.2-35.5) g/dl RDW Std Deviation 41.5 (36.4-46.3) fL Plt Count 248 (182-369) K/mm3 MPV 10.8 (9.4-12.3) fl Neut % (Auto) 62.3 (34.0-71.1) % Lymph % (Auto) 27.7 (19.3-51.7) % [place] % (Auto) 8.3 (4.7-12.5) % Eos % (Auto) 1.5 (0.7-5.8) Baso % (Auto) 0.1 (0.1-1.2) % Neut # (Auto) 5.27 (1.56-6.13) K/mm3 Lymph # (Auto) 2.35 (1.18-3.74) K/mm3 [place] # (Auto) 0.70 H (0.24-0.36) K/mm3 Eos # (Auto) 0.13 (0.04-0.36) K/mm3 Baso # (Auto) 0.01 (0.01-0.08) K/mm3 Sodium 138 (136-145) mEq/L Potassium 4.3 (3.5-5.1) mEq/L Chloride 104 (98-107) mEq/L Carbon Dioxide 26 (21-32) mEq/L Anion Gap 12.3 (5-15) BUN 14 (7-18) mg/dL Creatinine 0.9 (0.55-1.02) mg/dL Est Cr Clr Drug Dosing 57.40 mL/min Estimated GFR (MDRD) > 60 (>60) mL/min BUN/Creatinine Ratio 15.6 (14-18) Glucose 92 (70-99) mg/dL Calcium 9.5 (8.5-10.1) mg/dL Total Bilirubin 0.4 (0.2-1.0) mg/dL AST 17 (15-37) U/L ALT 28 (14-59) U/L Alkaline Phosphatase 85 (46-116) U/L Troponin I < 0.017 (0.00-0.056) ng/mL Total Protein 7.6 (6.4-8.2) g/dl Albumin 3.9 (3.4-5.0) g/dl Globulin 3.7 gm/dL Albumin/Globulin Ratio 1.1 (1-2) Urine Color Light yellow (Yellow) Urine Appearance Clear (Clear) Urine pH 6.0 (5.0-8.0) Ur Specific [place] 1.015 (1.005-1.030) Urine Protein Negative (Negative) Urine Glucose (UA) Negative (Negative) Urine Ketones Negative (Negative) Urine Occult Blood Negative (Negative) Urine Nitrite Negative (Negative) Urine Bilirubin Negative (Negative) Urine Urobilinogen 0.2 (0.2-1.0) Ur Leukocyte Esterase Negative (Negative) - Re-Assessments/Exams Free Text/Narrative Re-Assessment/Exam: 05/06/21 14:47 CBC, CMP, trop nl., CXR nl, EKG no acute changes. Departure - Departure Time of Disposition: 15:29 Disposition: Home, Self-Care 01 Condition: Fair Clinical Impression: Left shoulder tendonitis, Atypical chest pain, Left groin pain - Discharge Information Prescriptions: Naproxen [Naprosyn] 500 mg PO Q12HR #14 tab predniSONE [Prednisone] 50 mg PO DAILY #6 tablet Referrals: Uzma Mckoy DELICATESSEN CLERK [Primary Care Provider] - Forms: ED Department Discharge Additional Instructions: Stop the ibuprofen. Naprosyn 500 mg twice daily for 1 week, prednisone 50 mg daily for 6 days. Alternate ice and heat to areas of pain as needed. See Idalmis at clinic in follow up in about 1 week. Call for appt. Return to ED as needed. Sepsis Event Note (ED) - Evaluation Sepsis Screening Result: No Definite Risk - Focused Exam Vital Signs: Vital Signs Temp Pulse Resp BP Pulse Ox 05/06/21 12:19 97.8 F 86 18 162/78 H 97
== END 2021-05-06 16:00 | disposition home or self-care (01) ==
LOC: JD.ED 12:10
DX: R07.89 Other chest pain (principal); R10.32 Left lower quadrant pain; M77.8 Other enthesopathies, not elsewhere classified; K21.9 Gastro-esophageal reflux disease without esophagitis; I12.9 Hypertensive chronic kidney disease with stage 1 through stage 4 chronic kidney disease, or unspecified chronic kidney disease; N18.9 Chronic kidney disease, unspecified; E66.9 Obesity, unspecified; Z88.1 Allergy status to other antibiotic agents; Z88.8 Allergy status to other drugs, medicaments and biological substances; Z88.0 Allergy status to penicillin; Z88.5 Allergy status to narcotic agent; Z79.82 Long term (current) use of aspirin; Z79.899 Other long term (current) drug therapy; Z72.0 Tobacco use; Z68.38 Body mass index [BMI] 38.0-38.9, adult
CPT/HCPCS: 36415; 71045; 71045-26; 73502-26-LT; 73502-LT; 80053; 81003; 84484; 85025; 93005; 99285-25

== ENCOUNTER 2021-09-25 19:35 | Emergency (ER) | payer MEDICAID, MEDICARE, OTHER, SELFPAY ==
[2021-09-25 21:57] VITALS: BP 157/77; PULSE 62
== END 2021-09-25 21:30 | disposition home or self-care (01) ==
LOC: JD.ED 19:35
DX: R51.9 Headache, unspecified (principal); R20.2 Paresthesia of skin; E78.00 Pure hypercholesterolemia, unspecified; I10 Essential (primary) hypertension; E66.9 Obesity, unspecified; Z68.30 Body mass index [BMI] 30.0-30.9, adult; Z88.1 Allergy status to other antibiotic agents; Z88.0 Allergy status to penicillin; Z88.5 Allergy status to narcotic agent; Z79.82 Long term (current) use of aspirin; Z87.891 Personal history of nicotine dependence
CPT/HCPCS: 36415; 70450; 70450-26; 80053; 82947; 83735; 84484; 85025; 85379; 85610; 85730; 93005; 99284-25

== ENCOUNTER 2022-10-01 14:18 | Emergency (ER) | payer MEDICARE ==
[2022-10-01 14:33] VITALS: BP 170/100; PULSE 78
[2022-10-01] MEDS ORDERED: Lidocaine 1% 10 ML MDV INJECT ONE (14:45)
[2022-10-01] MEDS ORDERED: Lidocaine/EPINEPHrine/Tetracaine Soln 1 ML TOP ONE (14:49)
== END 2022-10-01 16:08 | disposition home or self-care (01) ==
LOC: JD.ED 14:18
DX: S61.216A Laceration without foreign body of right little finger without damage to nail, initial encounter (principal); I12.9 Hypertensive chronic kidney disease with stage 1 through stage 4 chronic kidney disease, or unspecified chronic kidney disease; N18.9 Chronic kidney disease, unspecified; E66.9 Obesity, unspecified; Z72.0 Tobacco use; Z86.16 Personal history of COVID-19; Z79.82 Long term (current) use of aspirin; Z79.899 Other long term (current) drug therapy; Z88.0 Allergy status to penicillin; Z88.1 Allergy status to other antibiotic agents; Z88.5 Allergy status to narcotic agent; Z88.8 Allergy status to other drugs, medicaments and biological substances; Z88.6 Allergy status to analgesic agent; W25.XXXA Contact with sharp glass, initial encounter
CPT/HCPCS: 12001; 99282; 99283; J3490

== ENCOUNTER 2022-10-06 12:56 | Emergency (ER) | payer MEDICARE ==
[2022-10-06] MEDS ORDERED: Sodium Chloride 0.9% 10 ML Syringe FLUSH PRN (13:28)
[2022-10-06] MEDS ORDERED: HYDROmorphone 0.5 MG/0.5 ML Syringe IVPUSH ONE ×2 (13:30→15:48)
[2022-10-06 14:30] LABS: CORONAVIRUS COVID-19 NAA NEGATIVE (NEGATIVE)
[2022-10-06 16:26] VITALS: BP 160/75; PULSE 59
== END 2022-10-06 16:27 | disposition home or self-care (01) ==
LOC: JD.ED 12:56
DX: R51.9 Headache, unspecified (principal); R07.89 Other chest pain; E78.00 Pure hypercholesterolemia, unspecified; I12.9 Hypertensive chronic kidney disease with stage 1 through stage 4 chronic kidney disease, or unspecified chronic kidney disease; N18.9 Chronic kidney disease, unspecified; Z88.1 Allergy status to other antibiotic agents; Z88.0 Allergy status to penicillin; Z88.5 Allergy status to narcotic agent; Z88.8 Allergy status to other drugs, medicaments and biological substances; Z79.82 Long term (current) use of aspirin; Z86.16 Personal history of COVID-19; Z20.822 Contact with and (suspected) exposure to COVID-19
CPT/HCPCS: 0241U; 36415; 70450; 71045; 80053; 83735; 84484; 85025; 86140; 87651; 93005; 96374; 96376; 99285; J1170; J3490; 93010; 99284

== ENCOUNTER 2024-04-25 18:51 | Emergency (ER) | payer MEDICARE ==
[2024-04-25] MEDS: Metoclopramide 10 MG/2 ML SDV IVPUSH ONE (19:34)
[2024-04-25] MEDS: diphenhydrAMINE 50 MG/ML SDV IVPUSH ONE (19:36)
[2024-04-25] MEDS: LORazepam 2 MG/ML SDV IVPUSH ONE (19:38)
[2024-04-25 19:42] LABS: BASOPHILS PERCENT AUTO 0.2 % (0.0-1.0); EOSINOPHILS PERCENT AUTO 0.1 % (0.0-6.0); HEMATOCRIT 43.9 % (37.0-47.0); HEMOGLOBIN 14.8 gm/dl (12.0-16.0); IMMATURE GRAN ABSOLUTE AUTO 0.04 K/mm3 (0.00-0.05); IMMATURE GRAN PERCENT AUTO 0.3 % (0.0-0.4); LYMPHOCYTES ABSOLUTE AUTO 1.5 K/mm3 (1.0-4.8); LYMPHOCYTES PERCENT AUTO 13.3 % (24.0-44.0); MEAN CORPUSCULAR HEMOGLOBIN 28.8 pg (28.0-32.0); MEAN CORPUSCULAR HGB CONC 33.7 g/dl (32.0-36.0); MEAN CORPUSCULAR VOLUME 85.4 fl (83.0-99.0); MONOCYTES ABSOLUTE AUTO 0.4 K/mm3 (0.0-0.8); MONOCYTES PERCENT AUTO 3.2 % (0.0-8.0); NEUTROPHILS ABSOLUTE AUTO 9.5 K/mm3 (1.8-7.7); NEUTROPHILS PERCENT AUTO 82.9 % (41.0-71.0); PLATELET COUNT,PLT 241 K/mm3 (150-400); RED BLOOD CELL COUNT 5.14 M/mm3 (4.10-5.30); WHITE BLOOD CELL COUNT,WBC 11.47 K/mm3 (3.9-11.3)
[2024-04-25] MEDS: Dextrose 5%-0.9% NaCl 1,000 ML IV SCH (19:45)
[2024-04-25] MEDS: HYDROmorphone 0.5 MG/0.5 ML Syringe IVPUSH ONE (19:45)
[2024-04-25 20:05] LABS: A/G RATIO 1.1 (1-2); ALANINE AMINOTRANSFERASE,ALT 30 U/L (14-59); ALKALINE PHOSPHATASE 80 U/L (46-116); ANION GAP 16.2 (5-15); ASPARTATE AMNIOTRANSFERASE,AST 16 U/L (15-37); BILIRUBIN TOTAL 0.3 mg/dL (0.2-1.0); BLOOD UREA NITROGEN,BUN 19 mg/dL (7-18); BUN/CREATININE RATIO 15.8 (14-18); C-REACTIVE PROTEIN 0.38 mg/dL (<0.30); CALCIUM 9.3 mg/dL (8.5-10.1); CARBON DIOXIDE,CO2 25 mEq/L (21-32); CHLORIDE,CL 102 mEq/L (98-107); CREATININE 1.2 mg/dL (0.55-1.02); EST CRCL DRUG DOSING (CG) 39.69 mL/min; ESTIMATED GFR 51 mL/min (>60); GLUCOSE RANDOM 120 mg/dL (70-99); LIPASE 66 U/L (16-77); MAGNESIUM 1.9 mg/dL (1.8-2.4); POTASSIUM,K 4.2 mEq/L (3.5-5.1); PROTEIN TOTAL,TP 7.7 g/dl (6.4-8.2); SODIUM,NA 139 mEq/L (136-145); TROPONIN I HIGH SENSITIVITY < 4 pg/mL (<=51)
[2024-04-25 20:09] LABS: LACTIC ACID 1.2 mmol/L (0.4-2.0)
[2024-04-25 20:45] LABS: APPEARANCE,URINE CLEAR (Clear); BILIRUBIN,URINE NEGATIVE (Negative); COLOR,URINE YELLOW (Yellow); GLUCOSE,URINE NEGATIVE (Negative); KETONES,URINE 1+ (Negative); LEUKOCYTE ESTERASE,URINE NEGATIVE (Negative); NITRITE,URINE NEGATIVE (Negative); OCCULT BLOOD,URINE NEGATIVE (Negative); PROTEIN,URINE 1+ (Negative); UROBILINOGEN,URINE 0.2 (0.2-1.0)
[2024-04-25 21:01] LABS: BACTERIA,URINE FEW /hpf (FEW); MUCUS,URINE MODERATE /hpf (FEW); RBC,URINE 0-5 /hpf (0-5); WBC,URINE 0-5 /hpf (0-5)
[2024-04-25] MEDS: Cyclobenzaprine 10 MG Tab PO ONE (21:30)
[2024-04-25 22:07] VITALS: BP 160/78; PULSE 61
== END 2024-04-25 21:55 | disposition home or self-care (01) ==
LOC: JD.ED 18:51
DX: R07.89 Other chest pain (principal); M54.6 Pain in thoracic spine; I12.9 Hypertensive chronic kidney disease with stage 1 through stage 4 chronic kidney disease, or unspecified chronic kidney disease; N18.9 Chronic kidney disease, unspecified; E66.9 Obesity, unspecified; Z68.36 Body mass index [BMI] 36.0-36.9, adult; Z86.16 Personal history of COVID-19; Z90.710 Acquired absence of both cervix and uterus; Z88.0 Allergy status to penicillin; Z88.8 Allergy status to other drugs, medicaments and biological substances; Z88.5 Allergy status to narcotic agent; Z88.1 Allergy status to other antibiotic agents; Z79.891 Long term (current) use of opiate analgesic; Z79.82 Long term (current) use of aspirin; Z79.52 Long term (current) use of systemic steroids; Z79.899 Other long term (current) drug therapy
CPT/HCPCS: 36415; 71045; 74176; 80053; 81001; 83605; 83690; 83735; 84484; 85025; 86140; 93005; 96361; 96374; 96375; 99285; J1171; J1200; J2060; J2765; J7042; A9270-GY

== ENCOUNTER 2024-12-13 11:52 | Emergency (ER) | payer MEDICARE ==
[2024-12-13] MEDS ORDERED: Naloxone 0.4 MG/ML SDV IVPUSH PRN (12:21)
[2024-12-13] MEDS: HYDROmorphone 1 MG/ML Syringe IM ONE (12:37)
[2024-12-13 14:20] VITALS: BP 191/98; PULSE 61
== END 2024-12-13 13:20 | disposition home or self-care (01) ==
LOC: JD.ED 11:52
DX: K08.89 Other specified disorders of teeth and supporting structures (principal); G89.29 Other chronic pain; I12.9 Hypertensive chronic kidney disease with stage 1 through stage 4 chronic kidney disease, or unspecified chronic kidney disease; N18.9 Chronic kidney disease, unspecified; E78.00 Pure hypercholesterolemia, unspecified; E66.9 Obesity, unspecified; Z88.0 Allergy status to penicillin; Z88.8 Allergy status to other drugs, medicaments and biological substances; Z79.82 Long term (current) use of aspirin; Z79.01 Long term (current) use of anticoagulants; Z79.899 Other long term (current) drug therapy; Z86.16 Personal history of COVID-19; Z68.36 Body mass index [BMI] 36.0-36.9, adult
CPT/HCPCS: 96372; 99282; J1171

== ENCOUNTER 2025-01-27 15:59 | Emergency (ER) | payer MEDICARE ==
[2025-01-27] MEDS: Ondansetron 4 MG/2 ML SDV IVPUSH ONE (16:46)
[2025-01-27 16:48] LABS: BASOPHILS ABSOLUTE AUTO 0.0 K/mm3 (0.0-0.2); BASOPHILS PERCENT AUTO 0.4 % (0.0-1.0); EOSINOPHILS ABSOLUTE AUTO 0.1 K/mm3 (0.0-0.4); EOSINOPHILS PERCENT AUTO 1.3 % (0.0-6.0); IMMATURE GRAN ABSOLUTE AUTO 0.03 K/mm3 (0.00-0.05); IMMATURE GRAN PERCENT AUTO 0.4 % (0.0-0.4); LYMPHOCYTES ABSOLUTE AUTO 2.5 K/mm3 (1.0-4.8); LYMPHOCYTES PERCENT AUTO 30.8 % (24.0-44.0); MEAN PLATELET VOLUME 11.3 fl (9.4-12.3); MONOCYTES ABSOLUTE AUTO 0.6 K/mm3 (0.0-0.8); MONOCYTES PERCENT AUTO 7.3 % (0.0-8.0); NEUTROPHILS ABSOLUTE AUTO 4.8 K/mm3 (1.8-7.7); NEUTROPHILS PERCENT AUTO 59.8 % (41.0-71.0); NRBC ABSOLUTE 0.00 (0.00-0.02); NRBC PERCENT 0.0 % (0.0-0.2); PLATELET COUNT,PLT 217 K/mm3 (150-400); RED BLOOD CELL COUNT 5.10 M/mm3 (4.10-5.30); WHITE BLOOD CELL COUNT,WBC 7.98 K/mm3 (3.9-11.3)
[2025-01-27 17:03] LABS: INR 0.97
[2025-01-27 17:12] LABS: A/G RATIO 1.1 (1-2); ALANINE AMINOTRANSFERASE,ALT 22.0 U/L (14-59); ASPARTATE AMNIOTRANSFERASE,AST 15.0 U/L (15-37); BILIRUBIN TOTAL 0.3 mg/dL (0.2-1.0); BLOOD UREA NITROGEN,BUN 14.0 mg/dL (7-18); CARBON DIOXIDE,CO2 26.0 mEq/L (21-32); CHLORIDE,CL 103.0 mEq/L (98-107); CREATINE KINASE,CK 69.0 U/L (26-192); CREATININE 0.8 mg/dL (0.55-1.02); EST CRCL DRUG DOSING (CG) 58.77 mL/min; ESTIMATED GFR 82.0 mL/min (>60); GLUCOSE RANDOM 90.0 mg/dL (70-99); POTASSIUM,K 3.9 mEq/L (3.5-5.1); PROTEIN TOTAL,TP 7.3 g/dl (6.4-8.2); SODIUM,NA 139.0 mEq/L (136-145); TROPONIN I HIGH SENSITIVITY 6.0 pg/mL (<=51)
[2025-01-27] MEDS: Acetaminophen/HYDROcodone 325-5 MG Tab PO ONE (17:14)
[2025-01-27] MEDS: Ketorolac 30 MG/ML SDV IVPUSH ONE (17:18)
[2025-01-27 17:51] LABS: APPEARANCE,URINE CLEAR (Clear); GLUCOSE,URINE NEGATIVE (Negative); OCCULT BLOOD,URINE NEGATIVE (Negative)
[2025-01-27 18:06] LABS: BUPRENORPHINE SCREEN,URINE NEGATIVE (CUTOFF=10); METHADONE SCREEN, URINE NEGATIVE (CUTOFF=200); METHAMPHETAMINES SCREEN, URINE NEGATIVE (CUTOFF=500); OXYCODONE SCREEN,URINE NEGATIVE (CUT0FF=100); THC SCREEN,URINE 20 NG/ML PRESUMPTIVE POSITIVE (CUTOFF=50)
[2025-01-27 18:08] LABS: AMPHETAMINES SCREEN, URINE NEGATIVE (CUTOFF=500)
[2025-01-27 18:48] VITALS: BP 139/82; PULSE 60
== END 2025-01-27 18:44 | disposition home or self-care (01) ==
LOC: JD.ED 15:59
DX: L29.9 Pruritus, unspecified (principal); M25.50 Pain in unspecified joint; M79.10 Myalgia, unspecified site; R53.82 Chronic fatigue, unspecified; G89.4 Chronic pain syndrome; E86.0 Dehydration; I12.9 Hypertensive chronic kidney disease with stage 1 through stage 4 chronic kidney disease, or unspecified chronic kidney disease; N18.9 Chronic kidney disease, unspecified; Z86.16 Personal history of COVID-19; Z90.710 Acquired absence of both cervix and uterus; Z88.0 Allergy status to penicillin; Z88.1 Allergy status to other antibiotic agents; Z88.5 Allergy status to narcotic agent; Z88.8 Allergy status to other drugs, medicaments and biological substances; Z79.82 Long term (current) use of aspirin; Z79.899 Other long term (current) drug therapy
CPT/HCPCS: 36415; 71045; 80053; 80306; 81003; 82550; 83605; 83690; 83735; 84484; 85025; 85610; 85652; 86140; 93005; 96361; 96374; 96375; 99284; J1885; J2405; J7030

== ENCOUNTER 2025-06-06 13:46 | Emergency (ER) | payer MEDICARE ==
[2025-06-06 15:08] LABS: APPEARANCE,URINE CLEAR (Clear); GLUCOSE,URINE NEGATIVE (Negative); OCCULT BLOOD,URINE NEGATIVE (Negative)
[2025-06-06 15:27] LABS: BASOPHILS ABSOLUTE AUTO 0.0 K/mm3 (0.0-0.2); BASOPHILS PERCENT AUTO 0.4 % (0.0-1.0); EOSINOPHILS ABSOLUTE AUTO 0.1 K/mm3 (0.0-0.4); EOSINOPHILS PERCENT AUTO 0.7 % (0.0-6.0); IMMATURE GRAN ABSOLUTE AUTO 0.02 K/mm3 (0.00-0.05); IMMATURE GRAN PERCENT AUTO 0.2 % (0.0-0.4); LYMPHOCYTES ABSOLUTE AUTO 2.7 K/mm3 (1.0-4.8); LYMPHOCYTES PERCENT AUTO 33.5 % (24.0-44.0); MEAN PLATELET VOLUME 10.8 fl (9.4-12.3); MONOCYTES ABSOLUTE AUTO 0.6 K/mm3 (0.0-0.8); MONOCYTES PERCENT AUTO 7.4 % (0.0-8.0); NEUTROPHILS ABSOLUTE AUTO 4.7 K/mm3 (1.8-7.7); NEUTROPHILS PERCENT AUTO 57.8 % (41.0-71.0); NRBC ABSOLUTE 0.00 (0.00-0.02); NRBC PERCENT 0.0 % (0.0-0.2); PLATELET COUNT,PLT 220 K/mm3 (150-400); RED BLOOD CELL COUNT 5.21 M/mm3 (4.10-5.30); WHITE BLOOD CELL COUNT,WBC 8.10 K/mm3 (3.9-11.3)
[2025-06-06 15:46] LABS: A/G RATIO 1.1 (1-2); ALANINE AMINOTRANSFERASE,ALT 20.0 U/L (14-59); ASPARTATE AMNIOTRANSFERASE,AST 16.0 U/L (15-37); BILIRUBIN TOTAL 0.4 mg/dL (0.2-1.0); BLOOD UREA NITROGEN,BUN 12.0 mg/dL (7-18); CARBON DIOXIDE,CO2 25.0 mEq/L (21-32); CHLORIDE,CL 104.0 mEq/L (98-107); CREATININE 0.8 mg/dL (0.55-1.02); EST CRCL DRUG DOSING (CG) 58.77 mL/min; ESTIMATED GFR 82.0 mL/min (>60); GLUCOSE RANDOM 88.0 mg/dL (70-99); POTASSIUM,K 4.0 mEq/L (3.5-5.1); PROTEIN TOTAL,TP 7.4 g/dl (6.4-8.2); SODIUM,NA 139.0 mEq/L (136-145)
[2025-06-06 20:49] VITALS: BP 150/85; PULSE 73
== END 2025-06-06 20:36 | disposition home or self-care (01) ==
LOC: JD.ED 13:46
DX: S09.90XA Unspecified injury of head, initial encounter (principal); I12.9 Hypertensive chronic kidney disease with stage 1 through stage 4 chronic kidney disease, or unspecified chronic kidney disease; N18.9 Chronic kidney disease, unspecified; E78.00 Pure hypercholesterolemia, unspecified; Z88.8 Allergy status to other drugs, medicaments and biological substances; Z88.0 Allergy status to penicillin; Z79.82 Long term (current) use of aspirin; Z79.899 Other long term (current) drug therapy; Z86.16 Personal history of COVID-19; W06.XXXA Fall from bed, initial encounter
CPT/HCPCS: 36415; 70450; 72125; 80053; 81003; 85025; 96372; 99284; J2270